=== PATIENT | female | born 1940 | race Caucasian/White ===

== ENCOUNTER 2018-07-03 12:45 | Emergency (ER) | payer MEDICARE, SELFPAY ==
[2018-07-03 12:52] VITALS: BP 133/58; PULSE 61; RESP 17; TEMP 36.5; O2SAT 97
--- NOTE | 2018-07-03 13:40 | W.ED.GENAD ---
Discharge Plan Disposition Patient Disposition: HOME Condition: Improving Discharge Details Chief Complaint: Abd Prob Clinical Impression: Constipation Primary Care Provider: Karli Aguayo ED Provider: Romero Conrad Home Meds and New Rx's Prescriptions: New mineral oil [Fleet Mineral Oil] enema 118 ml [place] ONCE Qty: 135 RF: 0 Continue benazepril 5 MG tablet 20 mg PO HS RF: 0 diltiazem HCl 180 MG capsule,extended release 24hr 180 mg PO HS RF: 0 nitroglycerin [Nitrostat] 0.4 MG tablet, sublingual 0.4 mg Sublingual Q5 MIN PRN X3 PRNQty: 100 RF: 0 Discharge Instructions Instructions: Constipation (ED) Additional Instructions: Please use fleets enema tonight. Continue Senokot daily. Please contact your primary care physician to arrange follow-up. You should follow-up with general surgery to have a colonoscopy. Call today to schedule. Return to the ER for any worsening or new concerning symptoms. Referrals: Asia Brody [ NON-[facility] STAFF PHYSICIAN] - Medical Decision Making 13:45 -- 78-year-old female with history of hypertension here with constipation over the past 3-4 days. Abdominal exam is relatively benign with some lower abdominal tenderness and peritoneal findings. Patient has not had a colonoscopy but has not had any abdominal pain, blood in her stool, unintentional weight loss or night sweats or any other concerning symptoms for malignancy. Patient has had some dietary changes recently. Consider electrolyte abnormalities. Patient seems somewhat dehydrated with dry mucous membranes. I will given IV fluid bolus. 15:00 -- Labs reviewed and nondiagnostic. Patient has received 600mL crystaloid bolus. Patient more uncomfortable and had attempted to have bowel movement unsuccessfully. Requesting disimpaction. Patient provides verbal consent to disimpaction after discussion of risk/benefits. 15:10 -- Disimpaction performed by la - large amount of stool removed and no complications. 16:00 -- Pt reassessed and having bowel movements. Feels much better. Patient advised to use stool softener follow-up with her primary care. HPI General Date/Time Provider Initiated Documentation: 07/03/18 12:58. Limitations to Documentation: no limitations. Information obtained by: patient. HPI Narrative: 78-year-old female with history of hypertension presents with chief complaint of constipation. Patient notes constipation over the past 4 days. Symptoms are severe. Patient notes she tried Senokot and milk of magnesia today as well as attempted an enema yesterday. Patient notes that she has some lower abdominal discomfort described as fullness as a result of the constipation. No new medications. Patient has had recent dietary changes has been eating a lot more vegetables recently. Patient is also experiencing a lot of stress recently with the loss of her and more recently missing dog. Patient has not had a colonoscopy. She denies any history of abdominal pain or rectal bleeding. Related Data Home Medications Medication Instructions Recorded Confirmed benazepril 20 mg PO HS 07/04/13 07/03/18 diltiazem HCl 180 mg PO HS 07/04/13 07/03/18 Previous Rx's Medication Instructions Recorded nitroglycerin [Nitrostat] 0.4 mg SUBLINGUAL Q5 MIN PRN X3 10/22/17 PRN #100 tab mineral oil [Fleet Mineral Oil 118 ml MS ONCE #135 ml 07/03/18 enema] Allergies Allergy/AdvReac Type Severity Reaction Status Date / Time propoxyphene HCl Allergy Severe see comment Unverified 10/17/17 13:21 [From Darvon Compound-65] latex Allergy Mild rash Unverified 10/17/17 13:21 antibiotic ointments AdvReac Mild rash Uncoded 10/17/17 13:21 General Stated Complaint: Abd Prob DAVID: 3 Review of Systems Review of Systems All systems reviewed & are unremarkable except as noted in HPI and below Cardiovascular Reports system reviewed and no additional complaints, except as docu Respiratory Reports system reviewed and no additional complaints, except as docu Gastrointestinal Reports abdominal pain, Denies melena, Denies hematochezia, Reports constipation, Denies diarrhea, Reports nausea and Denies vomiting PFSH Family History Mother Alzheimer's disease Father No problems noted. Medical History BASAL CELL CARCINOMA Essential hypertension Sleep apnea Squamous cell carcinoma Social History Smoking/Tobacco Use Status: Never Surgical History Cholecystectomy HERNIA REPAIR Exam Const General: cooperative and no acute distress HENMT Head: normocephalic and atraumatic Mouth: moist mucous membranes Eyes Conjunctivae: normal conjunctivae Sclera: normal sclerae EOM: EOM intact bilaterally Neck Neck: trachea midline and supple Resp Auscultation: clear to auscultation bilaterally, no rales, no rhonchi and no wheezes Cardio Jugular venous pressure: no JVD Rate: regular rate and not tachycardic Rhythm: regular rhythm Heart Sounds: murmur systolic II/ GI Palpation: soft, not firm, no guarding, no masses, not rigid and tender (discomfort in lower abd) Skin General skin exam: no rashes or lesions noted Neuro General: alert, awake, oriented x3 and tone normal Extrem General: no edema Psych Appearance: grossly normal Mental Status: mental status grossly normal Speech and Movement: speech and movement normal Course Vital Signs Temperature 36.5 C 07/03/18 12:52 Pulse 61 07/03/18 12:52 Respiratory Rate 17 07/03/18 12:52 Blood Pressure 133/58 L 07/03/18 12:52 Pulse Oximetry 97 07/03/18 12:52 Temperature 36.5 C 07/03/18 12:52 Pulse 61 07/03/18 12:52 Respiratory Rate 17 07/03/18 12:52 Blood Pressure 133/58 L 07/03/18 12:52 Pulse Oximetry 97 07/03/18 12:52 Procedures Rectal Disimpaction Time Out Performed: Yes Indication: fecal impaction Procedural Sedation: No Technique: manual disimpaction with gloved finger Result: significant stool output Patient Tolerated Procedure: well Complications: none
[2018-07-03] MEDS: Lactated Ringers 500 ML IV (13:45)
--- NOTE | 2018-07-03 13:49 | ED.GENADUL_ITS ---
Discharge Plan Disposition Patient Disposition: HOME Condition: Improving Discharge Details Chief Complaint: Abd Prob Clinical Impression: Constipation Primary Care Provider: Karli Aguayo ED Provider: Romero Conrad Home Meds and New Rx's Prescriptions: New mineral oil [Fleet Mineral Oil] enema 118 ml [place] ONCE Qty: 135 RF: 0 Continue benazepril 5 MG tablet 20 mg PO HS RF: 0 diltiazem HCl 180 MG capsule,extended release 24hr 180 mg PO HS RF: 0 nitroglycerin [Nitrostat] 0.4 MG tablet, sublingual 0.4 mg Sublingual Q5 MIN PRN X3 PRNQty: 100 RF: 0 Discharge Instructions Instructions: Constipation (ED) Additional Instructions: Please use fleets enema tonight. Continue Senokot daily. Please contact your primary care physician to arrange follow-up. You should follow-up with general surgery to have a colonoscopy. Call today to schedule. Return to the ER for any worsening or new concerning symptoms. Referrals: Asia Brody [ NON-[facility] STAFF PHYSICIAN] - Medical Decision Making 13:45 -- 78-year-old female with history of hypertension here with constipation over the past 3-4 days. Abdominal exam is relatively benign with some lower abdominal tenderness and peritoneal findings. Patient has not had a colonoscopy but has not had any abdominal pain, blood in her stool, unintentional weight loss or night sweats or any other concerning symptoms for malignancy. Patient has had some dietary changes recently. Consider electrolyte abnormalities. Patient seems somewhat dehydrated with dry mucous membranes. I will given IV fluid bolus. 15:00 -- Labs reviewed and nondiagnostic. Patient has received 600mL crystaloid bolus. Patient more uncomfortable and had attempted to have bowel movement unsuccessfully. Requesting disimpaction. Patient provides verbal consent to disimpaction after discussion of risk/ benefits. 15:10 -- Disimpaction performed by ar - large amount of stool removed and no complications. 16:00 -- Pt reassessed and having bowel movements. Feels much better. Patient advised to use stool softener follow-up with her primary care. HPI General Date/Time Provider Initiated Documentation: 07/03/18 12:58 . Limitations to Documentation: no limitations . Information obtained by: patient . HPI Narrative: 78-year-old female with history of hypertension presents with chief complaint of constipation. Patient notes constipation over the past 4 days. Symptoms are severe. Patient notes she tried Senokot and milk of magnesia today as well as attempted an enema yesterday. Patient notes that she has some lower abdominal discomfort described as fullness as a result of the constipation. No new medications. Patient has had recent dietary changes has been eating a lot more vegetables recently. Patient is also experiencing a lot of stress recently with the loss of her and more recently missing dog. Patient has not had a colonoscopy. She denies any history of abdominal pain or rectal bleeding. Related Data Home Medications Medication Instructions Recorded Confirmed benazepril 20 mg PO HS 07/04/13 07/03/18 diltiazem HCl 180 mg PO HS 07/04/13 07/03/18 Previous Rx's Medication Instructions Recorded nitroglycerin [Nitrostat] 0.4 mg SUBLINGUAL Q5 MIN PRN X3 10/22/17 PRN #100 tab mineral oil [Fleet Mineral Oil 118 ml [place] ONCE #135 ml 07/03/18 enema] Allergies Allergy/AdvReac Type Severity Reaction Status Date / Time propoxyphene HCl Allergy Severe see comment Unverified 10/17/17 13:21 [From Darvon Compound-65] latex Allergy Mild rash Unverified 10/17/17 13:21 antibiotic ointments AdvReac Mild rash Uncoded 10/17/17 13:21 General Stated Complaint: Abd Prob DAVID: 3 Review of Systems Review of Systems All systems reviewed & are unremarkable except as noted in HPI and below Cardiovascular Reports system reviewed and no additional complaints, except as docu Respiratory Reports system reviewed and no additional complaints, except as docu Gastrointestinal Reports abdominal pain, Denies melena, Denies hematochezia, Reports constipation , Denies diarrhea, Reports nausea and Denies vomiting PFSH Family History Mother Alzheimer's disease Father No problems noted. Medical History BASAL CELL CARCINOMA Essential hypertension Sleep apnea Squamous cell carcinoma Social History Smoking/Tobacco Use Status: Never Surgical History Cholecystectomy HERNIA REPAIR Exam Const General: cooperative and no acute distress HENMT Head: normocephalic and atraumatic Mouth: moist mucous membranes Eyes Conjunctivae: normal conjunctivae Sclera: normal sclerae EOM: EOM intact bilaterally Neck Neck: trachea midline and supple Resp Auscultation: clear to auscultation bilaterally, no rales, no rhonchi and no wheezes Cardio Jugular venous pressure: no JVD Rate: regular rate and not tachycardic Rhythm: regular rhythm Heart Sounds: murmur systolic II/ GI Palpation: soft, not firm, no guarding, no masses, not rigid and tender ( discomfort in lower abd) Skin General skin exam: no rashes or lesions noted Neuro General: alert, awake, oriented x3 and tone normal Extrem General: no edema Psych Appearance: grossly normal Mental Status: mental status grossly normal Speech and Movement: speech and movement normal Course Vital Signs Temperature 36.5 C 07/03/18 12:52 Pulse 61 07/03/18 12:52 Respiratory Rate 17 07/03/18 12:52 Blood Pressure 133/58 L 07/03/18 12:52 Pulse Oximetry 97 07/03/18 12:52 Temperature 36.5 C 07/03/18 12:52 Pulse 61 07/03/18 12:52 Respiratory Rate 17 07/03/18 12:52 Blood Pressure 133/58 L 07/03/18 12:52 Pulse Oximetry 97 07/03/18 12:52 Procedures Rectal Disimpaction Time Out Performed: Yes Indication: fecal impaction Procedural Sedation: No Technique: manual disimpaction with gloved finger Result: significant stool output Patient Tolerated Procedure: well Complications: none
[2018-07-03 14:02] LABS: Abs Immature Grans 0.01 k/cumm (0.0-0.09); Absolute Basophil Count 0.06 k/cumm (0.0-0.2); Absolute Eosinophil Count 0.12 k/cumm (0.0-0.7); Absolute Lymphocyte Count 1.31 k/cumm (1.2-3.4); Absolute Monocyte Count 0.46 k/cumm (0.11-0.7); Absolute Neutrophil Count 6.06 k/cumm (1.2-6.7); Basophils % 0.7; Eosinophils % 1.5; HCT 45.9 % (36.0-46.0); Immature Grans % 0.1; Lymphocytes % 16.3; Mean Corp. HGB Concentration 32.7 g/dL (32.0-36.0); Mean Corpuscular Hemoglobin 27.7 pg (27.0-33.0); Mean Corpuscular Volume 84.7 fL (80-95); Mean Platelet Volume 12.5 fL (8.0-11.0); Monocytes % 5.7; Neutrophils % 75.7; Platelet Count 169 x1000/uL (130-400); RBC 5.42 m/cumm (4.00-5.20); RBC Distribution Width 13.6 % (11.7-14.6); White Blood Cell Count 8.02 k/cumm (4.4-10.8)
[2018-07-03 14:22] LABS: ALT 37 U/L (12-78); AST 35 U/L (15-37); Albumin 3.7 g/dL (3.4-5.0); Alkaline Phosphatase 96 U/L (46-116); Anion Gap 8.5 mmol/L (3-11); BUN 23 mg/dL (7-18); Bilirubin, Total 0.5 mg/dL (0.2-1.0); CO2 29.5 mmol/L (21.0-32.0); CREATININE 0.72 mg/dL (0.55-1.02); Calcium 8.9 mg/dL (8.5-10.1); Chloride 106 mmol/L (98-107); Glucose 96 mg/dL (70-100); Potassium 3.9 mmol/L (3.5-5.1); Sodium 144 mmol/L (136-145); Total Protein 6.9 g/dL (6.4-8.2)
[2018-07-03 15:54] VITALS: BP 128/66; PULSE 62; RESP 17; TEMP 36.4; O2SAT 97
== END 2018-07-03 16:24 | disposition home or self-care (01) ==
PROVIDERS: Emergency Provider Student in an Organized Health Care Education/Training Program
DX: K59.00 Constipation, unspecified (principal); R10.30 Lower abdominal pain, unspecified; I10 Essential (primary) hypertension
CPT/HCPCS: 36415; 80053; 96360; 99284; 85025

== ENCOUNTER 2018-08-13 00:31 | Outpatient (CLI) | payer MEDICARE, SELFPAY ==
--- NOTE | 2018-08-13 13:30 | DI.DEXA_ITS ---
SYMPTOM/DIAGNOSIS: ASYMPTOMATIC POSTMENOPAUSAL, SCREENING FOR OSTEOPOROSIS, [facility], Z00.0,Z78.0 DEXA SCAN: The scanogram reveals no evidence of a compression fracture. For the right forearm, a T score of -1.4 and a Z score of 1.2 indicate osteopenia and an increased fracture risk. For the left hip, a T score of -0.7 and a Z score of 1.1 are consistent with osteopenia and an increased fracture risk. For the lumbar spine, a T score of 1.2 and a Z score of 3.7 are within the normal range.
== END 2018-08-13 00:51 ==
PROVIDERS: PCP Nurse Practitioner Family; Visit Provider Nurse Practitioner Family
DX: M85.88 Other specified disorders of bone density and structure, other site (principal); Z78.0 Asymptomatic menopausal state
CPT/HCPCS: 77080

== ENCOUNTER 2019-07-14 13:43 | Emergency (ER) | payer MEDICARE, SELFPAY ==
[2019-07-14] VITALS (23 sets, daily range): BP systolic 115–163; BP diastolic 47–81; PULSE 60–74; RESP 12; TEMP 37.3–38.9; O2SAT 93–98
--- NOTE | 2019-07-14 14:16 | ED.GENADUL_ITS ---
Discharge Plan Disposition Patient Disposition: HOME Condition: Improving Discharge Details Chief Complaint: Fever Clinical Impression: Lyme disease Primary Care Provider: Marbella Serrato ED Provider: Marbella Guillermo Home Meds and New Rx's Prescriptions: New doxycycline hyclate 100 mg tablet 100 mg PO BID Qty: 42 RF: 0 ondansetron HCl [Zofran] 4 mg tablet 4 mg PO Q8H Qty: 5 RF: 0 No Action benazepril 5 MG tablet 20 mg PO HS RF: 0 diltiazem HCl 180 MG capsule,extended release 24hr 180 mg PO HS RF: 0 nitroglycerin [Nitrostat] 0.4 MG tablet, sublingual 0.4 mg Sublingual Q5 MIN PRN X3 PRNQty: 100 RF: 0 mineral oil [Fleet Mineral Oil] enema 118 ml [place] ONCE Qty: 135 RF: 0 Discharge Instructions Instructions: Lyme Disease (ED), Tick Bite (ED) Additional Instructions: Please drink approximately 8 glasses of water per day. Use antibiotic as prescribed. Nausea medication if needed as prescribed. Use Tylenol for fever control and soreness if needed in the next 3 to 5 days. Have prompt follow-up with your primary care doctor for reevaluation. Lyme testing pending. Return for any persistent weakness, increase in fever, new or change in your s ymptoms or alarming symptoms if needed sooner as discussed Discharge Data Discharge Date/Time-TO BE ENTERED AT DEPARTURE: 07/14/19 17:46 Medical Decision Making Very pleasant 79-year-old patient presents accompanied by her daughter who went to her house today to help assist her which is very atypical as the patient is quite independent and typically only requests help when feeling ill. Patient has reported 3 days of fever associated with mild nausea, fatigue. Denies obvious headache or dizziness. Denies chest pain. Have no focal complaints of soreness. Patient denies difficulty breathing or shortness of breath or wheezing. Denies new cough. Denies abdominal pain, distention or bowel changes. Denies urinary urgency, frequency or dysuria. Patient has no clear source of her fever. Patient does report the temperature has been as high as 101 and 102. Patient does admit to 2 recent tick bites the most recent one week ago. Patient is also admitting to a rash behind her right knee and on her left elbow, left elbow rash has improved mildly. No associated pain or itching at the site of rash. Patient's initial ECG reviewed with Dr. Leggett. Heart rate of 73, with a left bundle branch block without evidence of scarbossa's criteria. No significant change compared to previous EKG from October 21, 2017. Influenza testing, chest x-ray and urinalysis are all unremarkable for obvious indicators of infection. Patient's vital signs are stable. Patient has no evidence of leukocytosis or shift. Patient's electrolytes are within normal limits. Patient has very minimal elevation of her LFTs. Given patient's fever, nausea, fatigue in conjunction to rash which is consistent with an EM rash and recent history of tick by a do feel is most appropriate to treat this patient with doxycycline. Patient was offered admission however would prefer trial of treatment at home. The patient was stable and requested discharge. Prior to discharge, my usual and customary return precautions were reviewed with the patient - this included follow-up instructions and reasons to return to the Emergency Department if conditions worsens, does not improve as expected, or other new concerns arise. HPI General Date/Time Provider Initiated Documentation: 07/14/19 13:53 . HPI Narrative: Is a 79-year-old patient who presents to the emergency room from home accompanied by her daughter whom is her neighbor. Patient complaining of fever and malaise with associated nausea. Onset of illness 2 days ago. Patient denies upper respiratory symptoms, nasal congestion with sore throat or coughing. Patient denies active chest pain or back pain. No associated difficulty being or shortness of breath or wheezing. Patient denies abdominal pain or distention. Patient denies urinary urgency, frequency or dysuria. Decreased urine output as she said decreased p.o. food and fluid intake in the last 2 days since onset of illness. Reports rash behind right knee and on left elbow.. Related Data Home Medications Medication Instructions Recorded Confirmed benazepril 20 mg PO HS 07/04/13 07/03/18 diltiazem HCl 180 mg PO HS 07/04/13 07/03/18 nitroglycerin [Nitrostat] 0.4 mg SUBLINGUAL Q5 MIN PRN X3 10/22/17 07/03/18 PRN #100 tab mineral oil [Fleet Mineral Oil 118 ml [place] ONCE #135 ml 07/03/18 enema] doxycycline hyclate 100 mg PO BID #42 tab 07/14/19 ondansetron HCl [Zofran] 4 mg PO Q8H #5 tab 07/14/19 Previous Rx's Medication Instructions Recorded nitroglycerin [Nitrostat] 0.4 mg SUBLINGUAL Q5 MIN PRN X3 10/22/17 PRN #100 tab mineral oil [Fleet Mineral Oil 118 ml [place] ONCE #135 ml 07/03/18 enema] doxycycline hyclate 100 mg PO BID #42 tab 07/14/19 ondansetron HCl [Zofran] 4 mg PO Q8H #5 tab 07/14/19 Allergies Allergy/AdvReac Type Severity Reaction Status Date / Time propoxyphene HCl Allergy Severe see comment Unverified 10/17/17 13:21 [From Darvon Compound-65] latex Allergy Mild rash Unverified 10/17/17 13:21 antibiotic ointments AdvReac Mild rash Uncoded 10/17/17 13:21 General Stated Complaint: Fever DAVID: 3 Review of Systems Review of Systems ROS Unobtainable: All systems reviewed & are unremarkable except as noted in HPI and below Constitutional Constitutional: Reports chills, Reports fever(s), Denies headache(s), Reports malaise and Reports poor appetite Eyes Eyes: Denies eye discharge ENT Ears, Nose, Mouth, and Throat: Denies dental pain, Denies ear discharge, Denies headache(s), Denies post nasal drip and Denies sinus pain Cardiovascular Cardiovascular: Denies chest pain, Denies syncope, Denies lightheadedness, Denies palpitations and Denies dyspnea on exertion Respiratory Respiratory: Denies cough and Denies dyspnea on exertion Gastrointestinal Gastrointestinal: Denies abdominal pain, Denies constipation, Denies cramping, Denies diarrhea, Reports nausea and Reports vomiting Genitourinary Genitourinary: Denies hematuria, Denies urinary frequency, Denies urinary incontinence and Denies urinary urgency Neurologic Neurologic: Denies syncope and Denies headache(s) Endocrine Endocrine: Denies palpitations [facility] Medical History BASAL CELL CARCINOMA Essential hypertension Sleep apnea Squamous cell carcinoma Social History Smoking/Tobacco Use Status: Never Alcohol Intake: current Alcohol Intake frequency: holidays/special occasions only Drug use: Never Do you feel safe in your relationship?: Yes Exam Narrative Exam Narrative: CONST: Fatigued appearing, febrile appearing, dry. Alert and alert. HENMT: Head nomocephalic, normal to inspection. Atraumatic. Hearing grossly normal. No TM injection. No pharyngeal erythema. EYES: General normal appearance. Alignment normal. Eyelids normal. Conjunctiva normal. NECK: Normal visual inspection. FROM. Trachea midline. No Midline tenderness. CHEST: Normal insepection of the chest. RESP: Normal respiratory effort. Speaking full sentences. No cough. No audible wheezing. No retractions. CARDIO: No JVD. No rubs. Regular rate Abdomen; soft, bowel sounds present in all 4 quadrants. No tenderness. No rebound, peritoneal signs or guarding. MUSCULOSKELETAL: Normal Gait. FROM of all extremities. SKIN: Normal. Dry. Patient with a oval, target type erythematous rash posterior to the right knee consistent with a EM rash NEURO: Alert and awake. Speech clear. PSYCH: Normal affect. Cooperative. Course Vital Signs Vital signs: Vital Signs Temperature 37.5 C 07/14/19 13:57 Pulse 70 07/14/19 13:57 Respiratory Rate 12 07/14/19 13:57 Blood Pressure 149/65 H 07/14/19 13:57 Pulse Oximetry 98 07/14/19 13:57 Temperature 37.5 C 07/14/19 13:57 Temperature Source Oral 07/14/19 13:57 Pulse 70 07/14/19 13:57 Respiratory Rate 12 07/14/19 13:57 Blood Pressure 149/65 H 07/14/19 13:57 Blood Pressure Position Supine 07/14/19 13:57 Pulse Oximetry 98 07/14/19 13:57 Oxygen Delivery Method Room Air 07/14/19 13:57 Oxygen Flow Rate 0 07/14/19 13:57 Pain Level 0 07/14/19 13:57 Lab/Test Results Lab/Test Results: 07/14/19 14:11 Nasopharynx Influenza Types A,B Antigen - Pending
[2019-07-14] MEDS: Normal Saline 1,000 ML 1000 ML IV (14:18)
--- NOTE | 2019-07-14 14:18 | DI.RAD_ITS ---
EXAM: XR CHEST 2V PA LATERAL INDICATION: fever. COMPARISON: ABD FLAT UPRIGHT PA CHEST from 07/04/2013 TECHNIQUE: 2D digital imaging was performed. FINDINGS: The heart is within normal limits given the projection. No focal consolidating infiltrates, effusion s, or pneumothoraces are identified. Age-appropriate degenerative changes are seen in the spine. IMPRESSION: No acute pulmonary process.
[2019-07-14 14:54] LABS: Bilirubin Negative (Negative); Blood Small (Negative); Clarity Clear (Clear); Glucose Negative (Negative); Ketones 15 mg/dL (Negative); Leukocyte Esterase Negative (Negative); Nitrite Negative (Negative); Specific Gravity 1.025 (1.005-1.025); Urobilinogen 0.2 EU/dL (Up TO 0.2)
[2019-07-14] MEDS: Ondansetron 4 MG/2 ML VIAL (14:59)
[2019-07-14 15:04] LABS: Bacteria Many HPF (Negative); C & S Indicated? Yes; Casts Negative LPF (Negative); Crystals Negative HPF (Negative); Epithelial Cells Few HPF (Negative); Mucus Negative (Negative); RBC Negative (0-2)
[2019-07-14 15:10] LABS: Abs Immature Grans 0.02 k/cumm (0.0-0.09); Absolute Basophil Count 0.02 k/cumm (0.0-0.2); Absolute Eosinophil Count 0.02 k/cumm (0.0-0.7); Absolute Lymphocyte Count 0.41 k/cumm (1.2-3.4); Absolute Monocyte Count 0.35 k/cumm (0.11-0.7); Absolute Neutrophil Count 5.54 k/cumm (1.2-6.7); Basophils % 0.3; Eosinophils % 0.3; HCT 43.2 % (36.0-46.0); HGB 14.1 g/dL (12.0-15.5); Immature Grans % 0.3; Lymphocytes % 6.4; Mean Corp. HGB Concentration 32.6 g/dL (32.0-36.0); Mean Corpuscular Hemoglobin 27.5 pg (27.0-33.0); Mean Corpuscular Volume 84.2 fL (80-95); Mean Platelet Volume 12.9 fL (8.0-11.0); Monocytes % 5.5; Neutrophils % 87.2; Platelet Count 130 x1000/uL (130-400); RBC 5.13 m/cumm (4.00-5.20); RBC Distribution Width 13.7 % (11.7-14.6); White Blood Cell Count 6.36 k/cumm (4.4-10.8)
[2019-07-14 15:21] LABS: ALT 73 U/L (14-59); AST 55 U/L (15-37); Alkaline Phosphatase 151 U/L (46-116); Anion Gap 8.6 mmol/L (3-11); BUN 20 mg/dL (7-18); Bilirubin, Total 0.4 mg/dL (0.2-1.0); CO2 26.4 mmol/L (21.0-32.0); CREATININE 0.83 mg/dL (0.55-1.02); Calcium 7.8 mg/dL (8.5-10.1); Chloride 102 mmol/L (98-107); Glucose 124 mg/dL (70-100); Potassium 3.4 mmol/L (3.5-5.1); Sodium 137 mmol/L (136-145); Total Protein 6.4 g/dL (6.4-8.2)
[2019-07-14] MEDS: ACETAMINOPHEN 1,000 MG/100 ML BTL 400 MG IVPB (15:30)
[2019-07-14] MEDS: Doxycycline Hyclate 100 MG CAP PO (17:16)
[2019-07-16 11:44] LABS: Lyme Ab w Rflx to Lyme Confirm Negative
[2019-07-16 23:26] LABS: Anaplasma phagocytophilum Negative (Negative); B. miyamotoi PCR Negative (Negative); Babesia divergens/MO-1 Negative (Negative); Babesia duncani Negative (Negative); Babesia microti Negative (Negative); Ehrlichia chaffeensis Negative (Negative); Ehrlichia ewingii/canis Negative (Negative); Ehrlichia muris eauclairensis Negative (Negative)
== END 2019-07-14 17:46 | disposition home or self-care (01) ==
PROVIDERS: Emergency Provider Physician Assistant; PCP Nurse Practitioner Family
DX: A69.20 Lyme disease, unspecified (principal); R53.81 Other malaise; R05 Cough; I10 Essential (primary) hypertension
CPT/HCPCS: 36415; 80053; 87449; 87798; 93005; 96361; 96365; 99285; 71046; 81003; 81015; 85025; 86618; 87086; 93010; J0131; J2405

== ENCOUNTER 2019-08-02 10:50 | Outpatient (REF) | payer MEDICARE, SELFPAY ==
[2019-08-02 12:36] LABS: ALT 27 U/L (14-59); AST 30 U/L (15-37); Albumin 3.8 g/dL (3.4-5.0); Alkaline Phosphatase 115 U/L (46-116); Anion Gap 7.5 mmol/L (3-11); BUN 25 mg/dL (7-18); Bilirubin, Total 0.5 mg/dL (0.2-1.0); CO2 28.5 mmol/L (21.0-32.0); CREATININE 0.78 mg/dL (0.55-1.02); Calcium 9.1 mg/dL (8.5-10.1); Calculated LDL 115 mg/dL; Chloride 107 mmol/L (98-107); Cholesterol 215 mg/dL (50-200); Glucose 87 mg/dL (70-100); HDL Cholesterol 89 mg/dL (40-60); Potassium 4.8 mmol/L (3.5-5.1); Sodium 143 mmol/L (136-145); Total Protein 6.8 g/dL (6.4-8.2); Triglyceride 56 mg/dL (30-150)
== END 2019-08-02 11:10 ==
LOC: NCHCN 10:50
PROVIDERS: PCP Nurse Practitioner Family; Visit Provider Nurse Practitioner Family
DX: I10 Essential (primary) hypertension (principal); R79.89 Other specified abnormal findings of blood chemistry; A69.20 Lyme disease, unspecified; M85.80 Other specified disorders of bone density and structure, unspecified site; C44.91 Basal cell carcinoma of skin, unspecified; I51.7 Cardiomegaly; R42 Dizziness and giddiness
CPT/HCPCS: 80053; 80061

== ENCOUNTER 2020-04-04 12:34 | Outpatient (REF) | payer MEDICARE, SELFPAY ==
[2020-04-04 20:17] LABS: Anion Gap 8.4 mmol/L (3-11); BUN 21 mg/dL (7-18); CO2 27.6 mmol/L (21.0-32.0); CREATININE 0.83 mg/dL (0.55-1.02); Calcium 8.8 mg/dL (8.5-10.1); Chloride 106 mmol/L (98-107); Glucose 109 mg/dL (74-106); Potassium 4.2 mmol/L (3.5-5.1); Sodium 142 mmol/L (136-145)
[2020-04-04 20:28] LABS: Absolute Basophil Count 0.05 k/cumm (0.0-0.2); Absolute Lymphocyte Count 2.04 k/cumm (1.2-3.4); Basophils % 0.8; Eosinophils % 6.6; HCT 44.4 % (36.0-46.0); HGB 14.3 g/dL (12.0-15.5); Lymphocytes % 33.5; Mean Corp. HGB Concentration 32.2 g/dL (32.0-36.0); Mean Corpuscular Hemoglobin 27.6 pg (27.0-33.0); Mean Corpuscular Volume 85.5 fL (80-95); Monocytes % 8.2; Neutrophils % 50.9; RBC 5.19 m/cumm (4.00-5.20); RBC Distribution Width 13.3 % (11.7-14.6); White Blood Cell Count 6.09 k/cumm (4.4-10.8)
[2020-04-04 20:56] LABS: Platelet Count 175 x1000/uL (130-400)
== END 2020-04-04 12:54 ==
LOC: NCHCN 12:34
PROVIDERS: PCP Nurse Practitioner Family; Visit Provider Nurse Practitioner Family
DX: R19.7 Diarrhea, unspecified (principal)
CPT/HCPCS: 80048; 85025

== ENCOUNTER 2020-04-05 10:35 | Outpatient (REF) | payer MEDICARE, SELFPAY ==
[2020-04-06 23:58] LABS: Campylobacter PCR Negative (Negative); Salmonella PCR Negative (Negative); Shiga Toxin PCR Negative (Negative); Shigella/Enteroinvasive Ecoli Negative (Negative)
== END 2020-04-05 10:55 ==
LOC: NCHCN 10:35
PROVIDERS: PCP Nurse Practitioner Family; Visit Provider Nurse Practitioner Family
DX: R19.7 Diarrhea, unspecified (principal)
CPT/HCPCS: 87505; 87177

== ENCOUNTER 2020-04-25 01:45 | Outpatient (CLI) | payer MEDICARE, SELFPAY ==
--- NOTE | 2020-04-25 11:20 | DI.RAD_ITS ---
EXAM: XR ABDOMEN FLAT PLATE CLINICAL HISTORY: BOWEL HABITS IRREGULAR, R19.8, DIARRHEA, R19.7 TECHNIQUE: COMPARISON: CR ABD FLAT UPRIGHT PA CHEST from 07/04/2013 FINDINGS: Views were obtained. There are vascular clips in the right upper quadrant consistent with prior chol ecystectomy. Bowel gas pattern is within normal limits. No gross organomegaly. IMPRESSION: Negative examination of the abdomen.
== END 2020-04-25 02:05 ==
PROVIDERS: PCP Nurse Practitioner Family; Visit Provider Nurse Practitioner Family
DX: R19.7 Diarrhea, unspecified (principal); R19.4 Change in bowel habit
CPT/HCPCS: 74018

== ENCOUNTER → 2020-04-28 11:00 | Outpatient (BNVA) | payer MEDICARE, SELFPAY | PROVIDERS: PCP Nurse Practitioner Family; Referring Provider Nurse Practitioner Family; Visit Provider Surgery | DX: R19.4 Change in bowel habit (principal); R63.4 Abnormal weight loss; I10 Essential (primary) hypertension; Z92.89 Personal history of other medical treatment | CPT/HCPCS: 99202; 99214 ==

== ENCOUNTER 2020-05-11 07:05 | Day surgery (SDC) | payer MEDICARE, SELFPAY ==
[2020-05-11 07:15] VITALS: BP 148/90; PULSE 58; RESP 18; TEMP 36.6; O2SAT 98
[2020-05-11] MEDS: Lactated Ringers 1,000 ML 100 ML IV (07:48)
--- NOTE | 2020-05-11 09:02 | W.COLOREPORT ---
Date of service: 05/11/20 Time of Service: 09:03 Colonoscopy Report Date of procedure: 05/11/20 Pre-op diagnosis general: wt loss and change in bowel habits Post-op diagnosis procedure note: other (normal ) Procedure: colo Surgeon: Cindy Mace Anesthesia proc note operative: MAC Estimated blood loss (mL): 0 Pathology: none sent Complications: None Disposition: same day Prep: Miralax/Dulcolax Retraction Time: 10 mins Procedure Description: After informed consent was obtained the patient was taken to the procedure room and placed in a left decubitous position. Monitors were applied and a time out was done. The patients name, date of , procedure, allergies to medications and metal in their body was reviewed. The patient was then sedated. Once sedated and comfortable a rectal exam was done. External exam was normal. Internal exam revealed a normal sphincter tone and no palpable masses. The scope was then introduced and retrofelexed. No internal hemorrhoids were identified. The scope was then advanced to the cecum w/out difficulty. The TI and appendiceal orifice were identified. The prep was good. The scope was then slowly retracted over 10 minutes back into the rectum. There are no polyps, AVMs, or diverticuli apparent a normal exam. The Mucosa is pink and healthy. Polyps were removed-none. The scope was removed and the patient was woken up and taken back to Same day surgery in stable condition. The patient tolerated the procedure well and there were no immediate complications. Follow up: The patient does not need to repeat colonoscopy, unless they develop changes in bowel habits or other new gastrointestinal complaints.
--- NOTE | 2020-05-11 09:06 | PDOC.DSDIS_ITS ---
Discharge Plan Disposition Patient Disposition: HOME Condition: Good Discharge Details Attending Provider: Cindy Mace Primary Care Provider: Marbella Serrato Home Meds and New Rx's Prescriptions: Continued Lactobacillus acidophilus Capsule 100 mg PO DAILY RF: 0 benazepril 5 MG tablet 20 mg PO HS RF: 0 diltiazem HCl 180 MG capsule,extended release 24hr 180 mg PO HS RF: 0 nitroglycerin [Nitrostat] 0.4 MG tablet, sublingual 0.4 mg Sublingual Q5 MIN PRN X3 PRNQty: 100 RF: 0 ibuprofen 200 mg Tablet 200 mg PO Q6H PRNRF: 0 Discontinued polyethylene glycol 3350 17 gram/dose powder 238 g PO ONCE Qty: 238 RF: 0 bisacodyl [Dulcolax (bisacodyl)] 5 mg tablet,delayed release (DR/EC) 5 mg PO ONCE Qty: 4 RF: 0 Discharge Instructions Additional Instructions: Findings:normal Follow up: w/ PCP as needed Does not need to repeat colonoscopy Please call if you develop: fevers >101.5 Nausea or Vomiting Abdominal pain that is not transient DAY SURGERY UNIT POST COLONOSCOPY INSTRUCTIONS 1. Because there will be medication in your system for the next 24 hours, you may feel a little sleepy. Your coordination will be affected. Therefore: a. Do not drive or operate dangerous equipment for 24 hours. b. Do not drink alcohol beverages for 24 hours (not even beer). c. Plan to go home and rest for the day. 2. Generally there are no restrictions on your activity after a day or so has gone by, but you may feel a bit fatigued for a few days. 3 After you arrive home you may have a light meal and return to a normal diet as you can tolerate it without feeling sick to your stomach. 4. After surgery, you may feel pain or discomfort. This should be only transie nt, but if it persists please contact your doctor. 5. If there are any questions regarding the findings of your procedure, please feel free to contact your doctor. 6. If you are unable to contact your doctor with a problem, contact the hospital at [phone]. 7. Continue all your regular medications unless directed otherwise. I understand the above instructions and have no questions. Signature of Patient or Responsible Adult Escort Date/Time Name of Responsible Adult Escort Signature of Nurse Date/Time Activity:: No lifting over 20 pounds or strenuous activity x24 hours Diet:: Small light meals x24 hours Discharge Orders Discharge Orders: Discharge Order (Routine); Ordered 05/11/20 Ordered By: Cindy Mace DS: Diagnosis Discharge Diagnosis (1) Abnormal weight loss: Status: Acute (2) History of adverse reaction to anesthesia: Status: Acute
[2020-05-11 09:48] VITALS: BP 144/74; PULSE 48; RESP 16; TEMP 36.4; O2SAT 100
== END 2020-05-11 10:20 | disposition home or self-care (01) ==
PROVIDERS: PCP Nurse Practitioner Family; Visit Provider Surgery
PROC: 0DJD8ZZ Inspection of Lower Intestinal Tract, Via Natural or Artificial Opening Endoscopic (ICD-10-PCS; CPT 45378; principal; 2020-05-11 08:15)
DX: Z12.11 Encounter for screening for malignant neoplasm of colon (principal); R63.4 Abnormal weight loss; R19.4 Change in bowel habit; I10 Essential (primary) hypertension
CPT/HCPCS: G0121

== ENCOUNTER 2020-07-01 23:16 | Inpatient (IN) | payer MEDICARE, SELFPAY ==
--- NOTE | 2020-07-01 23:12 | ED.GENADUL_ITS ---
Discharge Plan Disposition Patient Disposition: [facility] INPATIENT Condition: Stable Discharge Details Clinical Impression: Incarcerated left inguinal hernia Primary Care Provider: Marbella Serrato ED Provider: Salomon Tristan Berclair Meds and New Rx's Prescriptions: No Action Lactobacillus acidophilus Capsule 100 mg PO DAILY RF: 0 benazepril 5 MG tablet 20 mg PO HS RF: 0 diltiazem HCl 180 MG capsule,extended release 24hr 180 mg PO HS RF: 0 nitroglycerin [Nitrostat] 0.4 MG tablet, sublingual 0.4 mg Sublingual Q5 MIN PRN X3 PRNQty: 100 RF: 0 ibuprofen 200 mg Tablet 200 mg PO Q6H PRNRF: 0 Medical Decision Making Patient with left inguinal hernia which is very hard and tender to palpation. Not reducible initially because of pain. Will place IV and get laboratory studies. Will start fluids and give fentanyl and attempt reduction at that point. 00:10 - Patient given a total of 100 mcg of fentanyl. Even with pain control unable to reduce hernia. Schaffer placed to decompress her bladder. Attempted re duction after Schaffer placed and still unable to reduce. White count is normal. Lactic acid is normal. Case discussed with surgery, Dr. Mace. No CT scan required. Surgery to take 2-hour tonight. 04:10 - Surgery and anesthesia here to see patient and take to OR. Medical Records Medical records reviewed: Yes I reviewed the patient's medical records. Lab Data Lab results reviewed: Yes I reviewed the patient's lab results. ECG Data Attestation: I personally reviewed and interpreted this ECG (s) as follows: Interpretation: see EKG HPI General Mode of arrival: EMS . Date/Time Provider Initiated Documentation: 07/01/20 23:27 . Limitations to Documentation: no limitations . Information obtained by: patient, RN notes reviewed and old records reviewed . HPI Narrative: Patient presents to ED with left groin pain. Patient has a left inguinal hernia which is been repaired in the distant past. Typically does not give her problems and usually when it pops out she is able to push it back in. Was fine all day until this evening. Hernia became symptomatic tonight and she has been unable to reduce it. It is become painful and is associated with nausea and vomiting. She is also been unable to urinate. She denies fever, cough, shortness of breath, chest pain, back pain. Related Data Home Medications Medication Instructions Recorded Confirmed benazepril 20 mg PO HS 07/04/13 07/01/20 diltiazem HCl 180 mg PO HS 07/04/13 07/01/20 nitroglycerin [Nitrostat] 0.4 mg SUBLINGUAL Q5 MIN PRN X3 10/22/17 07/01/20 PRN #100 tab Lactobacillus acidophilus 100 mg PO DAILY 04/27/20 07/01/20 ibuprofen 200 mg PO Q6H PRN 05/09/20 07/01/20 Previous Rx's Medication Instructions Recorded nitroglycerin [Nitrostat] 0.4 mg SUBLINGUAL Q5 MIN PRN X3 10/22/17 PRN #100 tab Allergies Allergy/AdvReac Type Severity Reaction Status Date / Time propoxyphene HCl Allergy Severe see comment Unverified 07/01/20 23:25 [From Darvon Compound-65] latex Allergy Mild rash Unverified 07/01/20 23:25 antibiotic ointments AdvReac Mild rash Uncoded 07/01/20 23:25 General DAVID: 3 Review of Systems Narrative: 07/26 Review of Systems completed and is negative except as stated above in HPI (Systems reviewed: Const, Eyes, ENT, Resp, CV, GI, , MSK, Skin, Neuro) PFSH Medical History Basal cell carcinoma Essential hypertension Heart murmur History of adverse reaction to anesthesia Inguinal hernia, left Lyme disease Osteopenia Sleep apnea T wave inversion in EKG Surgical History Cholecystectomy HERNIA REPAIR Family History Mother Alzheimer's disease Father No problems noted. Social History Smoking/Tobacco Use Status: Never Alcohol Intake: current Alcohol Intake frequency: holidays/special occasions only Drug use: Never Do you feel safe at home: Yes Exam Narrative Exam Narrative: Vitals: Afebrile. Hypertensive. Normal O2 saturation on room air. Const: WDWN elderly female in NAD. HEENT: NC/AT. Normal facial exam. Eyes: Normal conjunctiva and sclera. Neck: Supple. Trachea midline. Lungs: Normal respiratory effort. Lungs are clear. Cor: RRR with murmur. Good radial pulses. GI: Soft and ND. Left inguinal hernia which is hard and tender to palpation, otherwise abdomen is nontender throughout. Neuro: A+O x 3. Normal speech, mentation, gait. Cranial nerves II - XII grossly intact. No gross motor or sensory deficit. Ext: No C/C/E. Skin: Warm and dry without rash.
[2020-07-01 23:17] VITALS: BP 170/101; PULSE 54; RESP 16; TEMP 36.3; O2SAT 98
[2020-07-01 23:30] VITALS: BP 206/76; PULSE 54; RESP 16; O2SAT 99
[2020-07-01] MEDS: Lactated Ringers 1,000 ML 125 ML IV (23:41)
[2020-07-01] MEDS: fentaNYL 100 MCG/2 ML VIAL 50 MCG IVP ×2 (23:41→23:55)
[2020-07-01 23:45] LABS: Abs Immature Grans 0.02 10^3/uL (0.0-0.06); Absolute Eosinophil Count 0.19 10^3/uL (0.0-0.7); Absolute Lymphocyte Count 1.78 10^3/uL (1.2-3.4); Absolute Monocyte Count 0.49 10^3/uL (0.1-0.8); Absolute Neutrophil Count 6.19 10^3/uL (1.2-6.7); Basophils % 1.1; Eosinophils % 2.2; HCT 46.8 % (36.0-46.0); HGB 14.9 g/dL (11.2-15.7); Immature Grans % 0.2; Lactate 1.5 mmol/L (0.6-1.4); Lymphocytes % 20.3; MCH 27.4 pg (27.0-33.0); MCHC 31.8 % (32.0-36.0); MCV 86.2 fL (80-95); MPV 12.8 fL (8.0-11.0); Monocytes % 5.6; Neutrophils % 70.6; Nucleated RBC 0 %; Platelet Count 194 10^3/uL (130-400); RBC 5.43 10^6/uL (3.93-5.22); RDW 12.8 % (11.7-14.6); WBC 8.77 10^3/uL (4.4-10.8)
[2020-07-02] VITALS (44 sets, daily range): BP systolic 138–180; BP diastolic 58–84; PULSE 48–63; RESP 1–25; TEMP 36.6–37.4; O2SAT 94–100
--- NOTE | 2020-07-02 | RT.EKG_ITS ---
APPROVED REPORT Exam: Resting ECG Patient Location: E HR:54 bpm ECG Measurements Heart Rate 54 AXIS LA 149 P 59 QRSd 129 QRS -32 QT 559 T 257 QTc 530 Conclusion Sinus bradycardia...rate< 60 Left bundle branch block...QRSd>120, broad/notched R Prolonged QT interval...QTc >500mS I have reviewed and interpreted ECG and agree with software generated interpretation.
[2020-07-02 00:17] LABS: ALT 28 U/L (14-59); AST 21 U/L (15-37); Albumin 3.9 g/dL (3.4-5.0); Alkaline Phosphatase 93 U/L (46-116); Anion Gap 5.9 mmol/L (3-11); BUN 25 mg/dL (7-18); Bilirubin, Total 0.2 mg/dL (0.2-1.0); CO2 29.1 mmol/L (21.0-32.0); CREATININE 0.77 mg/dL (0.55-1.02); Calcium 8.8 mg/dL (8.5-10.1); Chloride 106 mmol/L (98-107); Glucose 151 mg/dL (74-106); Potassium 3.2 mmol/L (3.5-5.1); Sodium 141 mmol/L (136-145); Total Protein 7.2 g/dL (6.4-8.2)
[2020-07-02 00:31] LABS: Bilirubin Negative (Negative); Blood Trace-intact (Negative); Clarity Clear (Clear); Glucose 100 mg/dL (Negative); Ketones Negative (Negative); Leukocyte Esterase Negative (Negative); Nitrite Negative (Negative); Specific Gravity 1.025 (1.005-1.025); Urobilinogen 0.2 EU/dL (Up TO 0.2)
[2020-07-02 00:40] LABS: Bacteria Negative HPF (Negative); C & S Indicated? No; Casts Negative LPF (Negative); Crystals Negative HPF (Negative); Epithelial Cells Rare HPF (Negative); Mucus Trace (Negative); Other Cells Negative (Negative); RBC 0-2 HPF (0-2); WBC 0-2 HPF (0-5)
[2020-07-02] MEDS: POTASSIUM CHLORIDE 10 MEQ/100 ML BAG 100 MEQ IVPB (00:40)
--- NOTE | 2020-07-02 04:39 | W.PM.OP ---
Date of service: 07/02/20 Time of Service: 04:39 Operative Note Operative Note DATE OF PROCEDURE: 07/02/20 PRE-OP DIAGNOSIS: incarcerated left inguinal hernia- recurrent SURGEON: Cindy Arevalo FLIGHT PHYSICIAN: Gael Montoya ANESTHESIA: MAC and epidural ESTIMATED BLOOD LOSS: 5 PATHOLOGY: none sent COMPLICATIONS: None Patient was transported to: floor Patient's condition: stable Implants: see RN notes Procedure Description: DESCRIPTION OF PROCEDURE: The pt is then brought to the operative room suite. Anesthesia was administered per the Department of Anesthesia. The patient was prepped and draped in the usual sterile fashion using ChloraPrep scrub solution. Pause for the cause was done. sHe did receive preop IV antibiotics, and 20 mL of .25% Marcaine w/ epinephrine was used for local anesthetization. A #12 blade was used to make an incision over the external ring. Electrocautery used to provide hemostasis and dissect down to the fascia. She has moderate size hernia sac tubing through the internal ring. The hernia sac is obviously been there for quite some time. It is scarred down to the subcutaneous tissues and the fascia. This is all dissected out with a combination of blunt dissection. The round ligament is encountered this is ligated and tied with 0 Vicryl ties. The hernia sac is edematous and inflamed. It is opened with blunt dissection. There is a loop small bowel within a polyp cannot pink and healthy. This is dissected out from the sac and returned to the abdominal cavity. About half the sac is been like excised. The sac is then closed with 020 Vicryl in a running fashion returned to the abdominal cavity. The ring was enlarged to facilitate dissection of the sac. A large plug was placed into the ring defect and this is closed using 0 Vicryl in interrupted fashion. Electro-cautery is used to provide hemostasis. The patch was then placed onto the floor, and using 2-0 Vicryl, sewn into the pubic tubercle and tacked onto the external Bleich and over the incision and over the ring. The wound was copiously irrigated. There was no bleeding noted. The nerve is not sewn into the mesh, nor caught up in any sutures. Deep tissue was approximated with 3-0 Vicryl in a running fashion, and skin was approximated with 4-0 Monocryl in a running subcuticular fashion. Skin glue and sterile dressings are applied. The patient tolerated the procedure without complications to recovery in stable condition. CINDY AREVALO, DO
--- NOTE | 2020-07-02 04:40 | W.PM.HP.N ---
Date of service: 07/02/20 Time of Service: 04:40 Assessment and Plan Assessment and plan (1) Incarcerated left inguinal hernia: Status: Acute Assessment and plan: This side was actually the site she had repaired previously. It was done without mesh. There is a chance that we would have to do a bowel resection. That would prevent placing mesh. If there is no signs of strangulation to the bowels then we will place mesh. Will be done with antibiotics. She will be in the hospital for a day or 2 until bowel function returns. Anesthesia's plan is to use a spinal and use minimal anesthetics. Risks and benefits were reviewed with the patient and she is agreeable the procedure. Further recommendations based on findings at the time of surgery (2) Basal cell carcinoma: Status: Chronic (3) Irregular bowel habits: Status: Acute (4) History of adverse reaction to anesthesia: Status: Acute (5) Lyme disease: Status: Acute (6) Heart murmur: Status: Acute (7) Hypertension: Status: Chronic History of Present Illness Consults Consult date: 07/02/20 Requesting physician: Salomon Tristan Narrative: Patient patient is a 80-year-old female well-known to me. She has had previous remote history of left. 20. She started having pain last evening and has an obvious incarcerated left inguinal hernia. She has a history of complications from anesthetics. She went to have a right inguinal hernia repaired about 5 years ago and after she got Versed and before induction she developed a right bundle branch block and the surgery was subsequently canceled. She had a complete cardiac evaluation and not a nap anomalies were ever found. She recently underwent a colonoscopy with and had no problems with this. Informed consent is obtained for the procedural (explained in simple layman's terms that the pt and/or family could understand) explaining risks vs benefits and alternatives to the procedure and consequences if we do not do the procedure. Risks include but are not limited to:bleeding,infections, pneumonia, blood clots/DVT/PE, anesthesia(aspiration, damage to teeth/airway/CA/CVA//prolonged mechanical ventilation/PTX/IV infections), damage to bowel, bladder,blood vessels, ureters Leakage from anastomosis requiring colostomy/ Wound infections requirng further surgery. Scarring and disfigurement. Subsequent bowel obstructions from scar tissue. Reactions, chronic pain, chronic numbness, or infection to the mesh. Recurrent hernia. Review of Systems All systems reviewed & are unremarkable except as noted in HPI and below PFSH Medical History Basal cell carcinoma Essential hypertension Heart murmur History of adverse reaction to anesthesia Inguinal hernia, left Lyme disease Osteopenia Sleep apnea T wave inversion in EKG Surgical History Cholecystectomy HERNIA REPAIR Family History Mother Alzheimer's disease Father No problems noted. Social History Smoking/Tobacco Use Status: Never Alcohol Intake: current Alcohol Intake frequency: holidays/special occasions only Drug use: Never Do you feel safe at home: Yes Meds Home Medications and Allergies Home Medications Medication Instructions Recorded Confirmed Type benazepril 20 mg PO HS 07/04/13 07/01/20 History diltiazem HCl 180 mg PO HS 07/04/13 07/01/20 History nitroglycerin [Nitrostat] 0.4 mg SUBLINGUAL Q5 MIN PRN X3 10/22/17 07/01/20 Rx PRN #100 tab Lactobacillus acidophilus 100 mg PO DAILY 04/27/20 07/01/20 History ibuprofen 200 mg PO Q6H PRN 05/09/20 07/01/20 History Allergies Allergy/AdvReac Type Severity Reaction Status Date / Time propoxyphene HCl Allergy Severe see comment Unverified 07/01/20 23:25 [From Naomi Compound-65] latex Allergy Mild rash Unverified 07/01/20 23:25 antibiotic ointments AdvReac Mild rash Uncoded 07/01/20 23:25 Exam Const General: cooperative, healthy appearing, comfortable, no acute distress, well developed and well groomed Nutritional Appearance: average body habitus and well nourished Orientation: alert, awake and oriented x3 HENMT Head: normal to inspection, normocephalic and atraumatic Ears: hearing grossly normal bilaterally and external ears normal General nose exam: external nose normal Face and sinus: normal facial exam and sinuses nontender Mouth: oral mucosae normal, lip normal, tongue normal and moist mucous membranes Teeth and gingiva: dentition normal Eyes General: appearance normal, both eyes and all related structures Conjunctivae: conjunctivae normal Sclera: sclerae normal Pupils: PERRL Neck Neck: normal visual inspection and full ROM Chest Chest: normal inspection of the chest Resp Effort & Inspection: normal respiratory effort, able to speak in complete sentences, no cough, no nasal flaring, not tachypneic and no use of accessory muscles Auscultation: clear to auscultation bilaterally, no rales, no rhonchi and no wheezes Cardio Jugular venous pressure: no JVD Rate: regular rate Rhythm: regular rhythm GI Inspection: normal to inspection, no edema, non-distended, scar and visible herniation (left inguinal hernia ) Palpation: soft, firm, guarding, mass, tender and No ascites Auscultation: normal bowel sounds Skin General skin exam: no rashes or lesions noted Trauma: no lacerations or abrasions Other: Significant amount of actinic keratoses and chronic sun damage. 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 Neuro General: patient alert, patient oriented x3, oriented, gait normal, moves all extremities, no focal motor deficits and CN's II-XI intact bilaterally Cognition: normal cognition Speech: speech normal Gait: normal gait Motor: muscle tone normal throughout Extrem General: normal to inspection, full ROM and no clubbing, cyanosis or edema Psych Appearance: grossly normal and well kempt Mental Status: mental status grossly normal Speech and Movement: speech and movement normal Affect: normal affect Results Labs Result diagrams: 07/01/20 23:30 07/01/20 23:30 Labs: Laboratory Results - last 24 hr 07/01/20 07/01/20 07/01/20 23:30 23:30 23:30 WBC 8.77 RBC 5.43 H Hgb 14.9 Hct 46.8 H MCV 86.2 MCH 27.4 MCHC 31.8 L RDW 12.8 Plt Count 194 MPV 12.8 H Immature Gran % 0.2 Neutrophils % 70.6 Lymphocytes % 20.3 Monocytes % 5.6 Eosinophils % 2.2 Basophils % 1.1 Nucleated RBC % 0 Absolute Neutrophils 6.19 Absolute Lymphocytes 1.78 Absolute Monocytes 0.49 Absolute Eosinophils 0.19 Absolute Basophils 0.10 VBG Lactate 1.5 H Sodium 141 Potassium 3.2 L Chloride 106 Carbon Dioxide 29.1 Anion Gap 5.9 BUN 25 H Creatinine 0.77 Estimated GFR/1.73 m2 >= 60.00 Glucose 151 H Calcium 8.8 Total Bilirubin 0.2 AST 21 ALT 28 Alkaline Phosphatase 93 Total Protein 7.2 Albumin 3.9 Urine Color Urine Clarity Urine pH Ur Specific [place] Urine Protein Urine Ketones Urine Blood Urine Nitrite Urine Bilirubin Urine Urobilinogen Ur Leukocyte Esterase Urine RBC Urine WBC Ur Epithelial Cells Urine Crystals Urine Bacteria Urine Casts Urine Mucus Urine Other Ur Culture Indicated? Urine Glucose 07/02/20 00:00 WBC RBC Hgb Hct MCV MCH MCHC RDW Plt Count MPV Immature Gran % Neutrophils % Lymphocytes % Monocytes % Eosinophils % Basophils % Nucleated RBC % Absolute Neutrophils Absolute Lymphocytes Absolute Monocytes Absolute Eosinophils Absolute Basophils VBG Lactate Sodium Potassium Chloride Carbon Dioxide Anion Gap BUN Creatinine Estimated GFR/1.73 m2 Glucose Calcium Total Bilirubin AST ALT Alkaline Phosphatase Total Protein Albumin Urine Color Yellow Urine Clarity Clear Urine pH 7.0 Ur Specific [place] 1.025 Urine Protein Negative Urine Ketones Negative Urine Blood Trace-intact H Urine Nitrite Negative Urine Bilirubin Negative Urine Urobilinogen 0.2 Ur Leukocyte Esterase Negative Urine RBC 0-2 Urine WBC 0-2 Ur Epithelial Cells Rare Urine Crystals Negative Urine Bacteria Negative Urine Casts Negative Urine Mucus Trace Urine Other Negative Ur Culture Indicated? No Urine Glucose 100 Last Vital Signs Temp 36.3 C L 07/01/20 23:17 Pulse 60 07/02/20 04:15 Resp 25 H 07/02/20 04:15 BP 179/68 H 07/02/20 04:15 Pulse Ox 96 07/02/20 04:15 COVID-19 Screening Have you,or household,traveled outside [place] in last 14 days?: No Had IN PERSON contact w/suspected or confirmed C-19 person: No
[2020-07-02] MEDS: PIPERACILLIN/TAZO 3.375 GM in Normal Saline 50 ML IVPB ×3 (04:53→17:20)
[2020-07-02] MEDS: Lactated Ringers 1,000 ML 125 ML IV (05:03)
--- NOTE | 2020-07-02 07:14 | PGE_ITS ---
Date of Service Date of service: 07/02/20 Time of Service: 07:14 Assessment and Plan Assessment and plan (1) Incarcerated left inguinal hernia: Status: Acute Assessment and plan: The patient is doing well post-op. There pain is well controlled. They are having no nausea or vomiting. The pt is not having any chest pain or SOB, productive cough; no calf pain or swelling. The pt is making good urine. The pt pain is adequately controlled. The case was discussed with nursing and pateints progress reviewed. All of the pt's home medications were addressed and adjusted accordingly for their oral intact status. HEENT: no janudice. no eye pain/drainage/redness/swelling. mild sore throat cardio- NSR no chest pain, BP stable. pulm: no sob or productive cough. no hemoptysis insicion- clean/dry. dressing intact no excessive bleeding or drainage I discussed with the patient and/or there family about the findings in surgery and the pt's progress. We reviewed expectations for progress in the hospital; what the pt could expect for recovery time and length of stay. We discussed the importance of walking and pulmonary toilet to avoid blood clots and pneumonia. Continue current plans for pulmonary toilet, GI and DVT prophalxis. We shall continue the current plan for pain mangament as it is at an appropraite level and working well for the pt. Appriopriate measures will be taken for constipation prevention as well, and this was also reviewed witht the pt. wound care plan was reviewed with nursing as well. see orders -d/c tanner at 10am -up walking -She was not able to take her blood pressure medications last night because of pain and vomiting and nausea. We will give a bump to her now. We will see what her BPH is like this evening before we give her a p.m. dose. -Hopefully DC home in a.m. -No lifting over 5 pounds for 2 to 3 weeks. She will need to make arrangements to care for her animals. Objective Last Vital Signs Temp 36.3 C L 07/01/20 23:17 Pulse 60 07/02/20 04:15 Resp 25 H 07/02/20 04:15 BP 179/68 H 07/02/20 04:15 Pulse Ox 96 07/02/20 04:15 Laboratory Results - last 24 hr 07/01/20 07/01/20 07/01/20 23:30 23:30 23:30 WBC 8.77 RBC 5.43 H Hgb 14.9 Hct 46.8 H MCV 86.2 MCH 27.4 MCHC 31.8 L RDW 12.8 Plt Count 194 MPV 12.8 H Immature Gran % 0.2 Neutrophils % 70.6 Lymphocytes % 20.3 Monocytes % 5.6 Eosinophils % 2.2 Basophils % 1.1 Nucleated RBC % 0 Absolute Neutrophils 6.19 Absolute Lymphocytes 1.78 Absolute Monocytes 0.49 Absolute Eosinophils 0.19 Absolute Basophils 0.10 VBG Lactate 1.5 H Sodium 141 Potassium 3.2 L Chloride 106 Carbon Dioxide 29.1 Anion Gap 5.9 BUN 25 H Creatinine 0.77 Estimated GFR/1.73 m2 >= 60.00 Glucose 151 H Calcium 8.8 Total Bilirubin 0.2 AST 21 ALT 28 Alkaline Phosphatase 93 Total Protein 7.2 Albumin 3.9 Urine Color Urine Clarity Urine pH Ur Specific [place] Urine Protein Urine Ketones Urine Blood Urine Nitrite Urine Bilirubin Urine Urobilinogen Ur Leukocyte Esterase Urine RBC Urine WBC Ur Epithelial Cells Urine Crystals Urine Bacteria Urine Casts Urine Mucus Urine Other Ur Culture Indicated? Urine Glucose 07/02/20 00:00 WBC RBC Hgb Hct MCV MCH MCHC RDW Plt Count MPV Immature Gran % Neutrophils % Lymphocytes % Monocytes % Eosinophils % Basophils % Nucleated RBC % Absolute Neutrophils Absolute Lymphocytes Absolute Monocytes Absolute Eosinophils Absolute Basophils VBG Lactate Sodium Potassium Chloride Carbon Dioxide Anion Gap BUN Creatinine Estimated GFR/1.73 m2 Glucose Calcium Total Bilirubin AST ALT Alkaline Phosphatase Total Protein Albumin Urine Color Yellow Urine Clarity Clear Urine pH 7.0 Ur Specific [place] 1.025 Urine Protein Negative Urine Ketones Negative Urine Blood Trace-intact H Urine Nitrite Negative Urine Bilirubin Negative Urine Urobilinogen 0.2 Ur Leukocyte Esterase Negative Urine RBC 0-2 Urine WBC 0-2 Ur Epithelial Cells Rare Urine Crystals Negative Urine Bacteria Negative Urine Casts Negative Urine Mucus Trace Urine Other Negative Ur Culture Indicated? No Urine Glucose 100
[2020-07-02] MEDS: Lactated Ringers 1,000 ML 100 ML IV ×2 (08:00→16:13)
[2020-07-02] MEDS: ACETAMINOPHEN 1,000 MG/100 ML BTL 400 MG IVPB ×2 (08:12→15:33)
[2020-07-02] MEDS: dilTIAZem CD 180 MG CAPCR PO (09:32)
[2020-07-02] MEDS: Benazepril 10 MG TAB 20 MG PO ×2 (09:32→21:46)
[2020-07-02 11:16] LABS: COVID-19 RT-PCR UVMMC Result Negative (Negative)
[2020-07-02] MEDS: Metoprolol 12.5 MG TAB PO (14:14)
--- NOTE | 2020-07-02 14:29 | INITIAL_ITS ---
- If Service Date Differs Date of service: 07/02/20 Time of Service: 14:29 Care Management Initial Assess REASON FOR HOSPITALIZATION:: Incarcerated left inguinal Hernia PAST MEDICAL HISTORY/PAST SURGICAL HISTORY:: Medical History. Basal cell carcinoma. Essential hypertension. Heart murmur. History of adverse reaction to anesthesia. Inguinal hernia, left. Lyme disease. Osteopenia. Sleep apnea. T wave inversion in EKG. Surgical History. Cholecystectomy. HERNIA REPAIR PREVIOUS FUNCTIONAL STATUS/SOCIAL/FAMILY SUPPORTS:: Mey lives alone in [place], [place]. She has two children who live on the same road as her, and are identified as supportive. She reported that her and her had their current house built in 2016 to be their senior care home, but he about 2 years ago. 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 She has a dog, a cat, and likes to ride her horses. She is independent at baseline. CURRENT FUNCTIONAL STATUS:: Mey was sitting up in bed when CM met with her. She reported that she was doing well. She was pleasant and engaged in conversation. She stated that she may be ready for discharge tomorrow. CM offered her cart items, and she accepted a [employer] book to keep her busy while she is here. CM will continue to follow. ADVANCE DIRECTIVES:: None on file. Has patient been provided with info about the portal/API?: No Did the patient sign up for the portal?: No CODE STATUS:: Full Code INSURANCE COVERAGE / FINANCIAL ISSUES:: [facility]/ [employer]ARP CURRENT HOME/COMMUNITY SERVICES/EQUIPMENT:: No current services or equipment. PRIMARY CARE PHYSICIAN:: Marbella Serrato POTENTIAL DISCHARGE NEEDS:: follow up appointments PATIENT/FAMILY EDUCATION NEEDS:: Review discharge instructions regarding activity levels and medications, discussion of self care needs. ANTICIPATED BARRIERS TO DISCHARGE:: None identified. TRANSPORTATION:: Via private vehicle by family. PLAN:: Anticipate Mey will return home when medically cleared. She will be driven home by family via private vehicle. She will follow up with surgical services and her discharge plan of care. CM will continue to follow.
--- NOTE | 2020-07-02 22:08 | W.PM.DS.N ---
Date of service: 07/02/20 Time of Service: 22:08 DS: Diagnosis Discharge Diagnosis (1) Incarcerated left inguinal hernia: Status: Acute Discharge Plan Disposition Patient Disposition: HOME Condition: Stable Discharge Details Reason For Visit: INCARCERATED LEFT INGUINAL HERNIA Admit Date/Time: 07/02/20 06:40 Admit Provider: Cindy Mace Attending Provider: Cindy Mace Primary Care Provider: Marbella Serrato Home Meds and New Rx's Prescriptions: New ibuprofen 600 mg tablet 600 mg PO Q6H PRNQty: 30 RF: 12 Continued Lactobacillus acidophilus Capsule 100 mg PO DAILY RF: 0 benazepril 5 MG tablet 20 mg PO HS RF: 0 diltiazem HCl 180 MG capsule,extended release 24hr 180 mg PO HS RF: 0 nitroglycerin [Nitrostat] 0.4 MG tablet, sublingual 0.4 mg Sublingual Q5 MIN PRN X3 PRNQty: 100 RF: 0 ibuprofen 200 mg Tablet 200 mg PO Q6H PRNRF: 0 Discharge Instructions Additional Instructions: HERNIA REPAIR ? POSTOPERATIVE INSTRUCTIONS Patients who have this type of surgery can usually be expected to return to work within two weeks and have minimal amounts of discomfort. ? ACTIVITY: The day of surgery should be spent resting. However, you can be up for short periods of time, I.E., going to the bathroom or kitchen. Avoid lifting or straining. On the day following surgery, you can be up and about as desired. ? LIFTING: Restrict your lifting to no more than five (5) pounds for the first week following surgery. For the second week after surgery, don?t lift more than ten pounds. We will decide when you are done with restrictions and when you can return to work, at your follow-up appointment. ? DIET: There are no dietary restrictions following surgery. However, you may want to start with small amounts of liquids to avoid nausea the day of surgery. ? INCISION CARE: You will notice purple skin glue closing the incision. Do not peel this off- it will wear off on its own. After 24 hours you may shower. The dressing may be replaced for comfort, but is not necessary. An ice bag may be applied to the incision for 72 hours following surgery. ? SIGNS OF INFECTION: It will slowly disappear. If you have any increased redness, drainage, fever (above 100 degrees), please contact your doctor for an examination. ? DISCOMFORT: You may expect to have some mild discomfort at the incision sight. If severe pain develops you should contact your doctor for further instructions. ? URINATION: Patients who have surgery occasionally have problems urinating. If you experience problems and are not able to urinate within 6 hours following your surgery, please call your doctor immediately or go to your nearest Emergency Room for evaluation. ? DRIVING: NO driving for five (5) days after surgery or if you are still taking narcotic pain medication. ? MEDICATIONS: Alternate Tylenol 1000mg by mouth every 8hours and Ibuprofen 600mg every 6hours. Take the Tylenol and ibuprofen continuously for the first 72hrs- not just when you have pain. . Use ICE! Twenty minutes on, and then off, continuously for the first 72hours. If you are taking narcotic pain medication, follow the instructions on the label and do not drive. Pain medications can make you very constipated. Make sure you are moving your bowels daily. If not, take Miralax, milk of magnesia or magnesium citrate. ? REPORT: Unusual swelling, severe pain, unresolved nausea, signs of infection, or difficulty in urination to your surgeon. Follow up in clinic with Dr. Mace in 1-2 weeks. [phone] Activity:: no lifting over 5#'s Equipment/Supplies:: No Equipment Needed Diet:: As Tolerated DS: Summary Status at Discharge Functional status at discharge: independent ambulation Overall status at discharge: patient is back to baseline Mental Status: mental status grossly normal Speech and Movement: speech and movement normal Mood: congruent mood Affect: normal affect Exam Psych Mental Status: mental status grossly normal Speech and Movement: speech and movement normal Mood: congruent mood Affect: normal affect DS: Data Vitals/I&O Vitals and I&O: Vital Signs Temperature 36.6 C 07/02/20 15:55 Temperature Source Tympanic 07/02/20 15:55 Pulse 54 L 07/02/20 15:55 Pulse Rhythm Regular 07/02/20 15:39 Pulse 62 07/02/20 04:15 Respiratory Rate 17 07/02/20 15:55 Respiratory Effort Non-Labored 07/02/20 15:39 Respiratory Depth Normal 07/02/20 15:39 Respiratory Pattern Normal 07/02/20 15:39 Blood Pressure 158/71 H 07/02/20 15:55 Blood Pressure Mean 93 07/02/20 04:15 Pulse Oximetry 98 07/02/20 15:55 Oxygen Delivery Method Room Air 07/02/20 15:55 Oxygen Flow Rate 0 07/02/20 15:55 Pain Level 0 07/02/20 15:55 Comment 07/02/20 08:28 Intake & Output 07/01/20 07/02/20 07/02/20 23:59 11:59 23:59 Intake Total 1477.083 / 2580.416 1103.333 / 2580.416 Output Total 975 / 2925 1950 / 2925 Balance 502.083 / -344.584 -846.667 / -344.584 Weight 56.5 kg 54.431 kg Intake: IV 1477.083 / 2340.416 863.333 / 2340.416 Oral 240 / 240 Output: Urine 975 / 2925 1950 / 2925 Other: Urine Color Pale Yellow Yellow Yellow Urine Appearance Clear Clear Clear Urine Odor Normal Voiding Methods Toilet Data Completed and Pending Labs on day of discharge: Labs from last 24 hours 07/02/20 07/02/20 07/01/20 00:20 00:00 23:30 WBC 8.77 RBC 5.43 H Hgb 14.9 Hct 46.8 H MCV 86.2 MCH 27.4 MCHC 31.8 L RDW 12.8 Plt Count 194 MPV 12.8 H Immature Gran % 0.2 Neutrophils % 70.6 Lymphocytes % 20.3 Monocytes % 5.6 Eosinophils % 2.2 Basophils % 1.1 Nucleated RBC % 0 Absolute Neutrophils 6.19 Absolute Lymphocytes 1.78 Absolute Monocytes 0.49 Absolute Eosinophils 0.19 Absolute Basophils 0.10 VBG Lactate Sodium Potassium Chloride Carbon Dioxide Anion Gap BUN Creatinine Estimated GFR/1.73 m2 Glucose Calcium Total Bilirubin AST ALT Alkaline Phosphatase Total Protein Albumin Urine Color Yellow Urine Clarity Clear Urine pH 7.0 Ur Specific [place] 1.025 Urine Protein Negative Urine Ketones Negative Urine Blood Trace-intact H Urine Nitrite Negative Urine Bilirubin Negative Urine Urobilinogen 0.2 Ur Leukocyte Esterase Negative Urine RBC 0-2 Urine WBC 0-2 Ur Epithelial Cells Rare Urine Crystals Negative Urine Bacteria Negative Urine Casts Negative Urine Mucus Trace Urine Other Negative Ur Culture Indicated? No Urine Glucose 100 COVID-19 PCR Negative Nasopharyn COVID-19 PCR Not Applicable Ref Test Perform Site [place] [facility] 07/01/20 07/01/20 23:30 23:30 WBC RBC Hgb Hct MCV MCH MCHC RDW Plt Count MPV Immature Gran % Neutrophils % Lymphocytes % Monocytes % Eosinophils % Basophils % Nucleated RBC % Absolute Neutrophils Absolute Lymphocytes Absolute Monocytes Absolute Eosinophils Absolute Basophils VBG Lactate 1.5 H Sodium 141 Potassium 3.2 L Chloride 106 Carbon Dioxide 29.1 Anion Gap 5.9 BUN 25 H Creatinine 0.77 Estimated GFR/1.73 m2 >= 60.00 Glucose 151 H Calcium 8.8 Total Bilirubin 0.2 AST 21 ALT 28 Alkaline Phosphatase 93 Total Protein 7.2 Albumin 3.9 Urine Color Urine Clarity Urine pH Ur Specific [place] Urine Protein Urine Ketones Urine Blood Urine Nitrite Urine Bilirubin Urine Urobilinogen Ur Leukocyte Esterase Urine RBC Urine WBC Ur Epithelial Cells Urine Crystals Urine Bacteria Urine Casts Urine Mucus Urine Other Ur Culture Indicated? Urine Glucose COVID-19 PCR Nasopharyn COVID-19 PCR Ref Test Perform Site [facility] Medical History Basal cell carcinoma Essential hypertension Heart murmur History of adverse reaction to anesthesia Inguinal hernia, left Lyme disease Osteopenia Sleep apnea T wave inversion in EKG Surgical History Cholecystectomy HERNIA REPAIR Family History Mother Alzheimer's disease Father No problems noted. Social History Smoking/Tobacco Use Status: Never Alcohol Intake: current Alcohol Intake frequency: holidays/special occasions only Drug use: Never Do you feel safe at home: Yes
[2020-07-03] MEDS: Normal Saline Flush 10 ML SYR IVP ×2 (00:07→08:55)
[2020-07-03] MEDS: Ketorolac 15 MG/ML VIAL IVP ×2 (00:08→06:35)
[2020-07-03] MEDS: ACETAMINOPHEN 1,000 MG/100 ML BTL 400 MG IVPB ×2 (00:11→08:54)
[2020-07-03 05:06] VITALS: BP 148/52; PULSE 45; RESP 14; TEMP 36.6; O2SAT 96
[2020-07-03 07:51] VITALS: BP 151/72; PULSE 47; RESP 16; TEMP 36; O2SAT 97
--- NOTE | 2020-07-03 08:23 | W.PM.PROGNOT ---
Date of Service Date of service: 07/03/20 Time of Service: 08:23 Assessment and Plan Assessment and plan (1) Incarcerated left inguinal hernia: Status: Acute Assessment and plan: POD#1 she is doing very well. d/w pt wound care/activity/warning sings. Pt is using ibuprofen for pain. No lifting over 5#'s or riding horses for 2 wks She did have a BM today. F/u in clinic in 1 wks time. all questions answered and stable for d/c. Subjective Subjective Interval history since last seen: Pt is doing well. no headaches. No CP or SOB. no productive cough. no dysuria. no leg pain or swelling. She is up walking around. She is tolerating a regular diet. She moved her bowels. Minimal pain. Exam Resp Effort & Inspection: normal respiratory effort and able to speak in complete sentences Auscultation: clear to auscultation bilaterally Cardio Rate: regular rate Rhythm: regular rhythm GI Inspection: incision (c/d/i) Palpation: soft Auscultation: normal bowel sounds Extrem General: no clubbing, cyanosis or edema Objective Last Vital Signs Temp 36 C L 07/03/20 07:51 Pulse 47 L 07/03/20 07:51 Resp 16 07/03/20 07:51 BP 151/72 H 07/03/20 07:51 Pulse Ox 97 07/03/20 07:51 Laboratory Results - last 24 hr 07/02/20 00:20 COVID-19 PCR Negative Nasopharyn COVID-19 PCR Not Applicable Ref Test Perform Site [facility] lab
[2020-07-03] MEDS: Milk of Magnesia 30 ML CUP PO (08:54)
--- NOTE | 2020-07-03 17:21 | PDOC.CMDIS ---
- If Service Date Differs Date of service: 07/03/20 Time of Service: 17:21 LACE Index Scoring Tool - Questions: Length of Stay (in days): 2 Acuity (Admit via E.D.?): Yes Comorbidities: Any Tumor E.D. Visits: 2 - Answers: Total Score: 9 Risk of Readmission: Low Risk Care Management Discharge Reason for Hospitalization: Incarcerated left inguinal Hernia Discharge Plan: Mey will return home with no additional services at this time. She will be driven home via private vehicle by family. She will follow up with her PCP and discharge plan of care. She is happy to be going home. Patient/Family Education Needs: Review discharge instructions regarding activity levels and medications, discussion of self care needs including ask me three.
== END 2020-07-03 10:56 | disposition home or self-care (01) | DRG 352 ==
LOC: ER 07-02 01:14 → MS 07-02 06:46
PROVIDERS: Admitting Provider Surgery; Emergency Provider Emergency Medicine; PCP Nurse Practitioner Family; Visit Provider Surgery
PROC: 0YU60JZ Supplement Left Inguinal Region with Synthetic Substitute, Open Approach (ICD-10-PCS; CPT 49521; principal; 2020-07-02 04:15)
DX: K40.31 Unilateral inguinal hernia, with obstruction, without gangrene, recurrent (principal); I10 Essential (primary) hypertension; R01.1 Cardiac murmur, unspecified; G47.30 Sleep apnea, unspecified; M85.80 Other specified disorders of bone density and structure, unspecified site
CPT/HCPCS: 49521; 36415; 51702; 80053; 93005; 96365; 96375; 99222; 99238; 99285; NC; U0003; 81003; 81015; 83605; 85025; 93010; C1781; J0131; J1885; J2250; J2405; J2543; J3010; J3480; J3490

== ENCOUNTER → 2020-07-21 12:55 | Outpatient (BNVA) | payer MEDICARE, SELFPAY | PROVIDERS: PCP Nurse Practitioner Family; Referring Provider Nurse Practitioner Family; Visit Provider Surgery | DX: Z48.815 Encounter for surgical aftercare following surgery on the digestive system (principal); K40.30 Unilateral inguinal hernia, with obstruction, without gangrene, not specified as recurrent ==

== ENCOUNTER 2020-09-12 18:43 | Outpatient (REF) | payer MEDICARE, SELFPAY ==
[2020-09-12 22:27] LABS: Anion Gap 9.1 mmol/L (3-11); BUN 28 mg/dL (7-18); CO2 24.9 mmol/L (21.0-32.0); CREATININE 0.73 mg/dL (0.55-1.02); Calcium 8.7 mg/dL (8.5-10.1); Chloride 107 mmol/L (98-107); Glucose 74 mg/dL (74-106); Potassium 4.3 mmol/L (3.5-5.1); Sodium 141 mmol/L (136-145)
[2020-09-12 22:38] LABS: Hemoglobin A1C 5.4 % (<5.7)
== END 2020-09-12 19:03 ==
LOC: NCHCN 18:43
PROVIDERS: PCP Nurse Practitioner Family; Visit Provider Nurse Practitioner Family
DX: E78.5 Hyperlipidemia, unspecified (principal); R73.9 Hyperglycemia, unspecified; I10 Essential (primary) hypertension; R42 Dizziness and giddiness; R19.8 Other specified symptoms and signs involving the digestive system and abdomen; A69.20 Lyme disease, unspecified
CPT/HCPCS: 80048; 83036

== ENCOUNTER 2020-11-13 16:31 | Outpatient (REF) | payer MEDICARE, SELFPAY ==
[2020-11-13 21:30] LABS: Bilirubin Negative (Negative); Blood Moderate (Negative); Clarity Sl Cloudy (Clear); Glucose Negative (Negative); Ketones Negative (Negative); Leukocyte Esterase Moderate (Negative); Nitrite Negative (Negative); Urobilinogen 0.2 EU/dL (Up TO 0.2); pH 5.5 (5-8)
[2020-11-13 21:38] LABS: Bacteria Moderate HPF (Negative); C & S Indicated? Yes; Casts Negative LPF (Negative); Crystals Negative HPF (Negative); Epithelial Cells Few HPF (Negative); Mucus Negative (Negative); WBC >50 HPF (0-5)
== END 2020-11-13 16:51 ==
LOC: NCHCN 16:31
PROVIDERS: PCP Nurse Practitioner Family; Visit Provider Family Medicine
DX: N39.0 Urinary tract infection, site not specified (principal)
CPT/HCPCS: 87077; 81003; 81015; 87086; 87186

== ENCOUNTER 2021-04-04 01:29 | Outpatient (CLI) | payer MEDICARE, SELFPAY ==
--- NOTE | 2021-04-04 10:36 | DI.US_ITS ---
APPROVED REPORT EXAM: Comprehensive 2D, Doppler, and color-flow Echocardiogram Patient Location: Out-Patient Dog Bather: Corrina Hutchison RDCS (AE) Indications: Heart Murmur Other Information Study Quality: Adequate Conclusion Mild to moderate concentric left ventricular hypertrophy. Estimated ejection fraction is 55 to 60%. Chamber size is normal. There are no segmental wall motion abnormalities The right ventricle appears normal in size and systolic function Both atria are normal in size Trileaflet sclerotic aortic valve with trace regurgitation. No aortic stenosis Moderate mitral annular calcification. Mild mitral regurgitation Normal tricuspid valve with mild regurgitation. Pulmonic valve was not well visualized Wall motion Left Ventricle The left ventricle is normal size. The left ventricular systolic function is normal. The left ventric ular ejection fraction is within the normal range. Mild to moderate concentric left ventricular hyper trophy. There is normal LV segmental wall motion. There is no ventricular septal defect visualized. L VEF is 55-60%. Right Ventricle Right ventricle is grossly normal in size. Right ventricular systolic function is grossly normal. The RVSP is 20.7mmHg. Atria The left atrium size is normal. The right atrium size is normal. The interatrial septum is intact wit h no evidence for an atrial septal defect. Aortic Valve Aortic valve is calcified. The Aortic valve is sclerotic. Aortic valve is trileaflet. No hemodynamica lly significant valvular aortic stenosis. Trace aortic regurgitation. Mitral Valve Moderate mitral annular calcification. No evidence of mitral valve stenosis. Mild mitral regurgitatio n. Tricuspid Valve The tricuspid valve is normal in structure. There is no tricuspid valve stenosis. Mild tricuspid regu rgitation. Pulmonic Valve Pulmonic valve is not well visualized. There is no pulmonic valvular stenosis. There is no pulmonic v alvular regurgitation. Great Vessels The aortic root is normal in size. Ascending aorta is not well visualized. Aortic arch is not well vi sualized. IVC is normal in size and collapses >50% with inspiration. Pericardium There is no pericardial effusion. 2D Dimensions IVSD d PLAX 2.13 cm F: 0.6-1.0 LV Vol A2C d MOD 106.2 mL LVPW d PLAX 1.20 cm F: 0.6 - 1.0 LV Vol A4C d MOD 135.5 mL LVID d PLAX 3.99 cm F: 3.8 - 5.2 LA vol/ BSA A2C s A-L 30.2 mL/m2 LVDs 2.85 cm F: 2.2 - 3.5 LA vol/ BSA A4C s A-L 37.9 mL/m2 Ao Root d 2.97 cm F: 2.7 - 3.3 LA Vol/ BSA Biplane s A-L 34.0 mL/m2 RA Area A4C 10.50 cm2 LA Area A4C s MOD 18.35 cm2 RA Vol/ BSA A4C s A-L 12.9 mL/m2 LA Area A2C s MOD 16.29 cm2 LV EF Teichholz 55.0 % LV EF A4C MOD 55.7 % LVEF (Huynh's) 56.55 % F: 54 - 74 LV EF A2C MOD 57.1 % LV Volume 101.48 mL F: 46 - 106 LV EF Biplane MOD 56.5 % LV Volume Index 87.03 mL/m2 F: 29 - 61 SV 69.87 mL LV Vol Biplane MOD 123.6 mL SV Index 44.89 mL/m2 FS 28.15 % M-Mode TAPSE 1.70 cm (M/F) >1.7 LV Diastology MV E' medial 0.035 (>0.07 m/s) E/A Ratio 0.7 LV E/e MED 21.55 (<14) MV E Vmax 0.76 (0.4-1.3 m/s) MV E' lateral 0.059 (>0.1 m/s) MV A Vmax 1.15 (0.4-1.3 m/s) LV E/e LAT 12.70 (<14) MV E/A Ratio 0.64 MV E/E' medial 21.58 MV E/E' lateral 12.71 Aortic Valve LVOT Area 2.92 cm2 AoV Area Vmax 2.07 cm2 LVOT Vmax 1.55 m/s AoV Area/ BSA (Vmax) 1.33 cm2/m2 LVOT Mean Jose. 0.98 m/s BRIAN Mean Jose. 1.78 cm2 LVOT Peak Grad 9.6 mmHg BRIAN Mean Jose. Index 1.14 cm2/m2 LVOT Mean Grad 4.6 mmHg LVOT VTI 0.381 m LVOT Diam s 1.90 cm AoV Vmax 2.18 m/s Velocity Ratio 0.71 AoV Mean Jose. 1.60 m/s AoV Peak Grad 19.0 mmHg LVOT SV 110.98 mL AoV Mean Grad 11.1 mmHg AoV VTI 0.465 m AoV Area VTI 2.39 cm2 AoV Area/ BSA (VTI) 1.53 cm/m2 Mitral Valve MV DT 408 (160-240 msec) MV PHT 118 msec MV Area PHT 1.86 cm2 MV VTI 0.505 m MV Area VTI 2.20 (4.0-6.0 cm2) Pulmonary Valve PV Vmax 0.81 (0.5-1.5 m/s) RVOT Peak Gr. 0.76 mmHg PV Peak Grad 2.6 mmHg RVOT Mean Gr. 0.35 mmHg PV Mean Grad 1.3 mmHg RVOT VTI 0.095 m PV VTI 0.192 m RVOT Vmax 0.44 m/s Tricuspid Valve TR Peak Grad 17.6 mmHg TR Vmax 2.10 m/s RA Pressure 3.00 mmHg RVSP (TR) 20.7 mmHg
== END 2021-04-04 01:49 ==
PROVIDERS: PCP Nurse Practitioner Family; Visit Provider Nurse Practitioner Family
DX: R01.1 Cardiac murmur, unspecified (principal)
CPT/HCPCS: 93306

== ENCOUNTER 2022-03-21 10:19 | Outpatient (REF) | payer MEDICARE, SELFPAY ==
[2022-03-21 16:02] LABS: ALT 17 U/L (14-59); AST 17 U/L (15-37); Albumin 3.7 g/dL (3.4-5.0); Alkaline Phosphatase 92 U/L (46-116); Anion Gap 9.2 mmol/L (3-11); BUN 24 mg/dL (7-18); Bilirubin, Total 0.4 mg/dL (0.2-1.0); CO2 26.8 mmol/L (21.0-32.0); CREATININE 0.7 mg/dL (0.55-1.02); Calcium 8.4 mg/dL (8.5-10.1); Calculated LDL 128 mg/dL (<100); Chloride 106 mmol/L (98-107); Cholesterol 212 mg/dL (<200); Glucose 74 mg/dL (74-106); HDL Cholesterol 70 mg/dL (40-60); Potassium 4.1 mmol/L (3.5-5.1); Sodium 142 mmol/L (136-145); Total Protein 6.9 g/dL (6.4-8.2); Triglyceride 72 mg/dL (<150)
== END 2022-03-21 10:20 | disposition home or self-care (01) ==
LOC: NCHCN 10:19
PROVIDERS: PCP Nurse Practitioner Family; Visit Provider Nurse Practitioner Family
DX: E78.5 Hyperlipidemia, unspecified (principal); I10 Essential (primary) hypertension; R42 Dizziness and giddiness; R79.89 Other specified abnormal findings of blood chemistry
CPT/HCPCS: 80053; 80061

== ENCOUNTER → 2022-05-17 00:34 | Outpatient (CLI) | payer MEDICARE, SELFPAY ==
--- OUTSIDE RECORDS SUMMARY | 2022-05-17 01:01 | XMS_ITS | Encounter Summary ---
:1940 [place] [address] Care Team Providers Name Role Phone Karli Aguayo MD Primary Care Provider Encounter Details Date Type Department Care Team Description 12/06/2012 - Hospital Encounter Intermediate Cardiac Jorge L Villalobos STEMI (non-ST elevated myocardial infarction) (Primary Dx); 12/07/2012 Care Unit Sandra Naik MD Chest pain; [facility] (hype rtension) [facility] [place] [phone] Social History Tobacco Use Types Packs/Day Years Used Date Never Smoker Alcohol Use Standard Drinks/Week Comments No 0 (1 standard drink = 0.6 oz pure alcoho l) Sex Assigned at Date Recorded Not on file documented as of this encounter Last Filed Vital Signs Vital Sign Reading Time Taken Comments Blood Pressure 159/73 12/07/2012 2:33 PM EST Pulse 51 12/07/2012 2:33 PM EST Temperature 36.7 ??C (98.1 ??F) 12/07/2012 2:33 PM EST Respiratory Rate 13 12/07/2012 2:15 PM EST Oxygen Saturation 96% 12/07/2012 2:33 PM EST Inhaled Oxygen Concentration - - Weight 62.1 kg (136 lb 14.5 oz) 12/07/2012 12:01 AM EST Height 162.6 cm (5' 4) 12/07/2012 12:01 AM EST Body Mass Index 23.5 12/07/2012 12:01 AM EST documented in this encounter Discharge Instructions Discharge InstructionsAshley Marinelli APRN - 12/07/2012 3:55 PM EST Call your doctor if: Chest pain, shortness of breath, pain or swelling in legs occurs. If you have non-emergent questions between now and the time of your follow up appointments: During 8am-5pm Friday through Friday call [phone] to speak with a nurse in the cardiology clinic. All other times call [phone] and ask to speak to the hydraulic repairer cardiothoracic surgeon. Return to work: 48 hours. No lifting more than 5 lbs for 48 hours and no lifting more than 10 lbs for one week. Driving: No driving for 48 hours after catheterization. Follow up Appointments: PCP: Karli Aguayo MD, . December 15 at 09:45 Home oxygen therapy: N/A Arrangements for VNA/home care: none documented in this encounter Medications at Time of Discharge Medication Sig Dispensed Refills Start Date End Date benazepril (LOTENSIN) 40 mg Take 40 mg by 0 tablet mouth daily. DILTiazem (TIAZAC) 180 mg 24 Take 180 mg by 0 hr capsule mouth every morning. hydrochlorothiazide Take 25 mg by 0 (HYDRODIURIL) 25 mg tablet mouth daily. imiquimod (ALDARA) 5 % cream 1 Packet(s) Top 0 10/03/2016 Once daily documented as of this encounter Progress Notes Maged Newell RN - 12/07/2012 6:02 PM EST Discharge orders written, patient understands instructions and follow up visits, patient discharge to home with . Maged Newell RN - 12/07/2012 5:04 PM EST Patient off bedrest, right groin negative. Patient ambulated unit 320 feet, tolerated well. Maged Baeza RN - 12/07/2012 2:34 PM EST Patient arrived from cath recovery s/p diagnostic cath. Right groin negative. Maged Baeza RN - 12/07/2012 11:07 AM EST Patient medicated for laboratory director. Star Parson MD - 12/07/2012 9:20 AM EST Inpatient Cardiology Progress Note Patient Name: Mey Menjivar Service: [employer]ENT[employer]ORSE / PA Responsible Attending: Grazyna Villalobos MD Reason for continued hospitalization: Awaiting cardiac catherization Active Problems: Active Hospital Problems Diagnoses ??? NSTEMI (non-ST elevated myocardial infarction) Priority: High ??? HTN (hypertension) Priority: High Resolved Hospital Problems Diagnoses Date Resolved Interval History: Patient was admitted to [facility] for evaluation of cardiac disease. She will undergo cardiac catheterization today. She reports being pain free and sleeping well overnight. Review of Systems: Review of Systems Constitutional: Negative. HENT: Negative. Respiratory: Negative. Cardiovascular: Negative for chest pain, palpitations and leg swelling. Gastrointestinal: Negative. Genitourinary: Negative. Musculoskeletal: Negative. Neurological: Negative for dizziness and light-headedness. Hematological: Negative. Psychiatric/Behavioral: Negative. Telemetry: HR: 80s sinus rhythm Meds: ??? hydrochlorothiazide 25 mg Oral Daily ??? sodium chloride 0.9 % 5 mL Intravenous Q12H ??? sodium chloride 0.9 % 5 mL Intravenous Q12H ??? metoprolol tartrate 25 mg Oral Q12H SWAPNIL ??? aspirin 325 mg Oral Daily ??? sodium chloride 0.9 % 5 mL Intravenous Q12H ??? diaZEPam 5 mg Oral Once ??? lisinopril 40 mg Oral Daily ??? atorvastatin 40 mg Oral QPM ??? DISCONTD: benazepril 40 mg Oral Daily ??? DISCONTD: metoprolol tartrate 25 mg Oral Q12H SWAPNIL Physical Exam: Vital Signs: Last value Range last 24 hrs Temperature Temp: 37 ??C (98.6 ??F) Temp: [36.7 ??C (98.1 ??F)-37 ??C (98.6 ??F)] Heart Rate Heart Rate: 62 Heart Rate: [60-62] Blood Pressure BP: 134/62 mmHg BP: (134-174)/(62-81) Respiratory Rate Resp: 18 Resp: [18] SpO2 SpO2: 98 % SpO2: [97 %-99 %] Patient Vitals for the past 168 hrs: Weight 12/07/12 0001 62.1 kg (136 lb 14.5 oz) Physical Exam Constitutional: She is oriented to person, place, and time. She appears well-developed. HENT: Head: Normocephalic and atraumatic. Eyes: Pupils are equal, round, and reactive to light. Neck: Normal range of motion. Cardiovascular: Normal rate, regular rhythm and normal heart sounds. Pulmonary/Chest: Effort normal and breath sounds normal. Abdominal: Soft. Bowel sounds are normal. Musculoskeletal: Normal range of motion. She exhibits no edema. Neurological: She is alert and oriented to person, place, and time. Skin: Skin is warm and dry. Psychiatric: Her behavior is normal. Lab Comments: Recent Labs Basename 12/07/12 0018 WBC 11.2* HGB 14.6 HCT 42.9 PLATELET 231 Recent Labs Basename 12/07/12 0018 INR 1.0 Recent Labs Basename 12/07/12 0018 NA 141 K 3.6 CL 106 CO2 24 BUN 14 CREATININE 0.74 Recent Labs Basename 12/07/12 0018 AST 19 ALT 15 ALKPHOS 83 BILITOT 0.2 BILIDIR 0.1 Recent Labs Basename 12/07/12 0018 CALCIUM 8.7 MAGNESIUM 0.86 PHOS -- Recent Labs Basename 12/07/12 0624 12/07/12 0018 CK 192* 301* TROPONINT <0.03 <0.03 Pertinent Radiographic/Diagnostic Results: I have independently visualized the following studies: ECG: NSR with T wave changes in anterolateral leads Echocardiogram 12/07/12: 1. Left ventricular chamber size, wall thickness, global and segmental systolic function are within normal limits. Ejection fraction is estimated to be 65%. 2. Right ventricular chamber size, wall thickness, and systolic function are within normal limits. 3. There is no hemodynamically significant valve disease. Assessment: Mey Menjivar is a 72 y.o. female with a PMH of HTN transferred from [place] because of new onset of epigastric pressure today at 7.15 PM when she just started eating. Cardiac enzymes were positive. She was pain free on arrival to [facility]. She was already given aspirin 324 mg, plavix 300 mg and started on a heparin bolus and drip per ACS protocol. Awaiting echocardiogram and cardiac catheterization. 1.NSTEMI: Admit to telemetry Troponin: < 0.03 x 2 at [facility] EKG shows NSR with T wave changes in anterolateral leads Continue aspirin, atorvastatin 40 mg, metoprolol 25 mg BID and heparin Check fasting lipid profile and HBA1C. CP protocol Awaits cardiac cath. Echocardiogram showed EF 65%, no wall motion abnormalities. . 2. HTN - controlled Will hold on the cardizem as we are starting her on metoprolol given the mortality benefit in ACS Diet - NPO DVT prophy - heparin per ACS protocol Code status - Full code I have discussed with MD Ashley Pepe APRN 12/07/2012 Staff Rounding Addendum: I interviewed and examined the patient during comprehensive bedside rounds with LYNDSAY Marinelli. I agree with the summary of interval events, active hospital-focused problem list and plan of care.I personally reviewed the medications, laboratory results, treatment decisions and updated the patient on all of these elements. I independently confirmed the patient's exam findings with the exceptionthat I hear a 1-2/6 soft mid peaking systolic murmur at the left upper sternal border extending to the mid sternum on the left side. Otherwise I concur with Ashley's progress note as is described above. The plan was developed in discussion between myself and LYNDSAY Marinelli. The plan is to send Mrs. Menjivar to the laboratory director today to assess for the presence of significant coronary disease. Star Villalobos MD Staff Word Processing Operator Pager #[phone] Saman Rojas, PATEL - 12/07/2012 4:15 AM EST Patient oob to bath room, rhythm change noted on telemetry. VS( 159 66-61-99 % on RA) and EKG done , paged. Patient denies discomfort but states I just don't feel right. Vital signs , EKG and Tele strip shared with MD. documented in this encounter H&P Notes Trent Graham MD - 12/07/2012 12:08 AM EST Cardiology Admission H & P Patient Name: Mey Menjivar MRN No - [id number] Date of - 1940 Age - 72 y.o. Admission Date - 12/06/12 Inpatient Attending:Dr. Villalobos Chief Complain: abdominal pressure Active Problem List: Patient Active Problem List Diagnoses ??? AK (actinic keratosis) ??? History of basal cell carcinoma ??? BCC (basal cell carcinoma) Overview Note: HPI: 72 y/o woman with a PMH of HTN and no other significant cardiovascular history presented to [facility] onset of stomach pressure when she was about to start her dinner at 1915 last night. She walked for 2 miles yesterday and did snow shoeing as well. She is very active at home and usually walk 2 miles daily which includes going uphill. Today before starting her dinner she suddenly felt a pressure which was located in upper central stomach which quickly spread through out the stomach.This pain was sharp and was 10/10 initially. This lasted for about one and half hr. She didn't have any chest pain. She also denied for any radiation, any aggravating or relieving factors. She didn't have any SOB, palpitations, headache, dizziness. Her took her to the [place]. Her initial vitals were stable at[place]. Her ECG showed NSR w/o St changes. She became nauseous at [place] ad threw up once. She was given dilaudid 0.5 mg IV, zofran 4 mg IV and ASA 324 mg PO. Her lab data showed normal CBC, and BMP except glucose of 122 and BUN of 19. She had negative amylase and lipase. Her UA was negative. Her first set oftrop I was 0.18. She was given plavix 300 mg, started on a heparin with bolus and drip as well as IVF. She was transferred to the [facility] for further management On arrival to [facility] she was pain free. She denied for any complain. Past Medical History: HTN Past Surgical History: None Family History: Father - pacemaker Social History History Social History ??? Marital Status: Spouse Name: N/A Number of Children: N/A ??? 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 Smoking status: Never Smoker ??? Smokeless tobacco: Not on file ??? Alcohol Use: No ??? Drug Use: No ??? Sexually Active: No Other Topics Concern ??? Not on file Social History Narrative ??? No narrative on file Review of System 12 comprehensive review of system was negative except for GI - stomach pressure, nausea and vomiting at [place] CVS - No CP, SOB, palpitations RS - No SOB, cough or sputum production Home Medications: No current facility-administered medications on file prior to encounter. Current Outpatient Prescriptions on File Prior to Encounter Medication Sig Dispense Refill ??? DILTiazem (TIAZAC) 180 mg 24 hr capsule Take 180 mg by mouth every morning. ??? hydrochlorothiazide (HYDRODIURIL) 25 mg tablet Take 25 mg by mouth daily. ??? imiquimod (ALDARA) 5 % cream 1 Packet(s) Top Once daily Allergies: Allergies Allergen Reactions ??? Aspirin ??? Bacitracin ??? Caffeine ??? Propoxyphene Hcl Physical Exam: Vitals: Patient Vitals for the past 24 hrs: BP Temp Temp src Pulse Resp SpO2 Height Weight 12/07/12 0001 - - - - - - 162.6 cm (5' 4) 62.1 kg (136 lb 14.5 oz) 12/06/12 2342 174/81 mmHg 36.7 ??C (98.1 ??F) Oral 60 18 99 % - - Exam: Constitutional: well built, lying in bed in no apparent distress HENT:head normocephalic, no evidence of trauma, no nasal or aural discharge, no exudates in oral cavity, oral mucosa appears moist Eyes: EOMI, no icterus or pallor, Neck: supple, no thyromegaly or lymphadenopathy CVS: Regular rythm, normal S1and S2, systolic murmur in aortic area with radiation to neck b/l, grade 2/6; no gallop or rub, JVP ,Distal pulses 2+ bilaterally Pulmonary: good air entry bilaterally,CTAB. GI: abdomen soft, NTND, bowel sounds positive, no rebound or gaurding, no organomegaly Musculoskeletal: no joint swellings or deformities Extremities: no edema Skin: no rashes noted Neuro: no gross focal deficits on limited neuro exam Psych: mood and affect normal. Not anxious looking. Diagnostics: Reviewed personally ECG - NSR, prolonged QT, left axis deviation and No ST changes Labs: Recent Results (from the past 24 hour(s)) CBC (WITH DIFF) Component Value Range WBC 11.2 (*) 4.0 - 10.0 x10(3)/mcL RBC 4.98 3.93 - 5.22 x10(6)/mcL Hemoglobin 14.6 11.2 - 15.7 gm/dL Hematocrit 42.9 34.0 - 45.0 % MCV 86.1 79.0 - 94.0 fL MCH 29.3 26.6 - 32.2 pg MCHC 34.0 32.0 - 36.5 gm/dL Platelets 231 145 - 370 x10(3)/mcL RDWSD 42.9 35.0 - 46.0 fL RDWCV 13.7 10.9 - 14.4 % MPV 12.0 9.0 - 12.0 fL COMPREHENSIVE METABOLIC PANEL (NON-FASTING) Component Value Range Glucose Lvl 125 60 - 199 mg/dL BUN 14 8 - 18 mg/dL Creatinine 0.74 0.70 - 1.20 mg/dL Sodium 141 135 - 145 mmol/L Potassium 3.6 3.5 - 5.0 mmol/L Chloride 106 98 - 107 mmol/L CO2 24 22 - 31 mmol/L Anion Gap 11 5 - 15 mmol/L Calcium 8.7 8.5 - 10.5 mg/dL Total Protein 6.8 6.4 - 8.3 gm/dL Albumin 4.3 3.2 - 5.2 gm/dL AST 19 0 - 30 unit/L ALT 15 0 - 30 unit/L Alk Phos 83 40 - 104 unit/L Total Bilirubin 0.2 0.2 - 1.3 mg/dL Bili, Direct 0.1 0.0 - 0.3 mg/dL Estimated GFR >60 >=60 CARDIAC ENZYMES Component Value Range Troponin-T <0.03 <=0.03 ng/mL CK, Total 301 (*) 0 - 160 unit/L PROTHROMBIN TIME Component Value Range PT 12.8 11.9 - 14.7 sec INR 1.0 0.9 - 1.1 APTT Component Value Range PTT 36 (*) 25 - 35 sec MAGNESIUM Component Value Range Magnesium 0.86 0.69 - 1.07 mmol/L DIFFERENTIAL, AUTOMATED Component Value Range Neutrophils % 78.1 (*) 34.0 - 71.0 % Neutr Abs (ANC) 8.73 (*) 1.50 - 6.30 x10(3)/mcL Lymphocytes % 16.7 (*) 19.0 - 53.0 % Lymphocytes Abs 1.9 1.0 - 3.6 x10(3)/mcL Monocytes % 3.8 (*) 4.0 - 13.0 % Monocyte Abs 0.4 0.2 - 1.0 x10(3)/mcL Eosinophils % 0.4 0.0 - 7.0 % Eosinophils Abs 0.0 0.0 - 0.5 x10(3)/mcL Basophils % 0.8 0.0 - 2.0 % Basophils Abs 0.1 0.0 - 0.2 x10(3)/mcL Immature Gran % 0.20 0.00 - 0.66 % Aury Gran Abs 0.02 0.00 - 0.05 x10(3)/mcL ELLIOT risk Score Point Score /MS/mortality in 14 days Age >= 65 1 0-1 5% >= 3 risk Factor (F/H of premature CVD men <45 And women <55 , Smoking, hyperlipidemia) 2 8% Known CAD (>=50% stenosis) 3 13% ASA use in last 7 days 4 20% Angina episodes >= 2in 24 hrs [address] 26% ST deviation >- 0.5 mm 6-7 41% +ve cardiac biomarkers 1 Total 2 ASHLEE 2000;284:825 Higher risk pts (TRS>=3) derive high benefit from LMWH, GP IIb/IIIa inhibitors and early angiography (JACC 2003;41:895) Assessment and Plan: NSTEMI -this is a 72 y/o woman with a PMH of HTN transferred from [place] because of new onset of epigastric pressure today at 7.15 PM when she just started eating. This is the first time she had this problem. She didn't have typical anginal symptoms. Her ECG was in NSR w/o ST changes. Her [place] labs were unremarkable except her cardiac enzymes were positive. She was pain free on arrival to [facility]. She was already given aspirin 324 mg, plavix 300 mg and started on a heparin bolus and drip per ACS protocol. Will admit her to [facility] for further management of her NSTEMI 1.NSTEMI: Admit to telemetry Cycle bio-markers Repeat EKG Continue aspirin, atorvastatin 40 mg, metoprolol 25 mg BID and heparin Check fasting lipid profile and HBA1C. CP protocol Needs cardiac cath. Echo in AM The indications, expected benefits and potential risks of heart catheterization were reviewed in detail with the patient. The potential for , heart attack, stroke, kidney failure, hemorrhage, allergic reaction, vascular complications and infection were reviewed in detail. The possibility of stenting and other percutaneous intervention with associated risk was reviewed. The possible need for emergent coronary artery bypass surgery was reviewed. After a discussion about the above, and having answered all questions posed, the patient was provided with a consent which was reviewed and signed. HTN - controlled Will hold on the cardizem as we are starting her on metoprolol given the mortality benefit in ACS Diet - NPO DVT prophy - heparin per ACS protocol Code status - Full code More than 50 mins time spent in clinical decision making Provider: Trent Graham Pager: [phone] documented in this encounter Procedure Notes Provider, Scanning - 12/08/2012 10:22 AM ESTAssociated Order(s): SCAN DOC: ARCHITECTURAL TECHNICIAN Provider, Scanning - 12/07/2012 12:30 PM ESTAssociated Order(s): CARDIAC CATHETERIZATION documented in this encounter Miscellaneous Notes Miscellaneous - Provider, Scanning - 12/08/2012 8:15 PM EST Miscellaneous - Provider, Scanning - 12/08/2012 8:15 PM EST Miscellaneous - Provider, Scanning - 12/08/2012 10:22 AM EST Miscellaneous - Provider, Scanning - 12/08/2012 10:22 AM EST Discharge Summary - Star Villalobos MD - 12/07/2012 12:19 PM EST Inpatient Cardiology - Discharge Summary Patient Name: Mey Menjivar Patient Age: 72 y.o. Birthdate: 1940 Admit date: 12/06/2012 Discharge date : 12/07/12 Attending Physician: Star Villalobos MD Discharge Diagnoses (Hospital Problems) and Secondary Diagnoses (Chronic Problems): Active Hospital Problems Diagnoses ??? NSTEMI (non-ST elevated myocardial infarction) Priority: High ??? HTN (hypertension) Priority: High Resolved Hospital Problems Diagnoses Date Resolved Active Non-Hospital Problems Diagnoses ??? AK (actinic keratosis) ??? History of basal cell carcinoma ??? BCC (basal cell carcinoma) Studies: Echocardiogram: 1. Left ventricular chamber size, wall thickness, global and segmental systolic function are within normal limits. Ejection fraction is estimated to be 65%. 2. Right ventricular chamber size, wall thickness, and systolic function are within normal limits. 3. There is no hemodynamically significant valve disease. CARDIAC CATHETERIZATION - Procedure: Coronary Angiography Showed normal coronary arteries History of Presentation: 72 y/o woman with a PMH of HTN presented to [facility] for sudden onset of chest pressure as she was aboutto start her dinner at 19:15 last night. Today before starting her dinner she suddenly felt a pressure which was located in upper central stomach which quickly spread through out the stomach and mid-giselle rnum.This pain was sharp and was 10/10 initially. This lasted until she presented to the ED at [facility] and was given dilaudid. She denied for any radiation, any aggravating or relieving factors. She didn't have any SOB, palpitations, headache, dizziness. Her took her to the [place]. Her initial vitals were stable at [place]. Her ECG showed NSR w/o St changes. She became nauseous at [place] ad threw up once. She was given dilaudid 0.5 mg IV, zofran 4 mg IV andASA 324 mg PO. Her lab data showed normal CBC, and BMP except glucose of 122 and BUN of 19. She had negative amylase and lipase. Her UA was negative. Her first set of trop I was 0.18. She was given plavix 300 mg, started on a heparin with bolus and drip as well as IVF. She was transferred to the [facility] for further management On arrival to [facility] heparin was infusing and she was pain free. Hospital Course: 1. Chest pain Troponin at [facility] were < 0.03 x 2 sets. EKG initially showed NSR and later showed NSR with t-wave inversions in V3-V6. Echocardiogram was negative for wall motion abnormalities and EF 65%. She was taken to cardiac catheterization. Cardiac catheterization showed normal coronary arteries. Important Studies and Lab Data: Labs: Lab Results Component Value Date WBC 11.2* 12/07/2012 HGB 14.6 12/07/2012 HCT 42.9 12/07/2012 PLATELET 231 12/07/2012 Recent Labs Basename 12/07/12 0018 INR 1.0 Lab Results Component Value Date NA 141 12/07/2012 K 3.6 12/07/2012 CL 106 12/07/2012 CO2 24 12/07/2012 BUN 14 12/07/2012 CREATININE 0.74 12/07/2012 No results found for this basename: TSH in the last 7068 hours Recent Labs Basename 12/07/12 0018 HA1C 5.7 Recent Labs Basename 12/07/12 0624 12/07/12 0018 CK 192* 301* TROPONINT <0.03 <0.03 Lab Results Component Value Date CHLPL 201* 12/07/2012 HDL 79 12/07/2012 CHOLHDL 2.5 12/07/2012 TRIG 72 12/07/2012 LDLCHOL 108* 12/07/2012 Pending Studies and Lab Data: None Discharge Conditions/Prognosis: Stable Discharge to: Home Discharge Medications: Current Discharge Medication List Continued medications, unchanged Dose Details benazepril (LOTENSIN) 40 mg 40 mg Take 40 mg by mouth daily. DILTiazem (TIAZAC) 180 mg 180 mg Take 180 mg by mouth every morning. hydrochlorothiazide (HYDRODIURIL) 25 mg 25 mg Take 25 mg by mouth daily. imiquimod (ALDARA) 5 % cream 1 Packet(s) Top Once daily Updated Allergies/ADRs: Allergies Allergen Reactions ??? Bacitracin ??? Caffeine ??? Propoxyphene Hcl Follow-up Recommendations for Providers: Will need follow-up for non-cardiac cause of chest pressure Instructions Given to Patient at Discharge: Provider Instructions None General Instructions Call your doctor if: Chest pain, shortness of breath, pain or swelling in legs occurs. If you have non-emergent questions between now and the time of your follow up appointments: During 8am-5pm Friday through Friday call [phone] to speak with a nurse in the cardiology clinic. All other times call [phone] and ask to speak to the hydraulic repairer cardiothoracic surgeon. Return to work: 48 hours. No lifting more than 5 lbs for 48 hours and no lifting more than 10 lbs for one week. Driving: No driving for 48 hours after catheterization. Follow up Appointments: PCP: Karli Aguayo MD, . December 15 at 09:45 Home oxygen therapy: N/A Arrangements for VNA/home care: none Provider Contact Information: Ashley Marinelli APRN [phone] Discharge References/Attachments: Discharge References/Attachments None Signed: Ashley Marinelli APRN 12/07/2012 Cardiology Staff Discharge Day Notation: I interviewed and examined the patient as part of the attending rounds process today. I personally reviewed the overnight events, medications, supplemental lab data and plan for discharge. The patient was updated on the acute cardiovascular problem that was addressed during the admission and the plan for follow-up care. I spent less than 30 minutes accomplishing the tasks denoted above. Details provided in the discharge summary document. Briefly the patient was transferred to this facility with findings concerning for an ACS. We sent her to the laboratory director today where her coronaries werefound to be normal appearing. Her left ventricular systolic function is normal. She tolerated the procedure today and was able to be discharged without significant complication. For any questions or issues regarding this hospitalization please feel free to contact me at [phone]. Star Villalobos MD [facility] Miscellaneous - Provider, Scanning - 12/07/2012 12:15 AM EST Miscellaneous - Provider, Scanning - 12/07/2012 12:10 AM EST documented in this encounter Plan of Treatment Not on filedocumented as of this encounter Procedures Procedure Name Priority Date/Time Associated Comments Diagnosis ARCHITECTURAL TECHNICIAN SCAN 12/08/2012 10:22 Res ults for this AM EST procedure are i n the results section. CARDIAC CATHETERIZATION Routine 12/07/2012 12:19 Results for this PM EST procedure are i n the results section. CARDIAC CATHETERIZATION 12/07/2012 11:23 cad AM EST ECHOCARDIOGRAM Routine 12/07/2012 9:42 NSTEMI (non-ST Results for this TRANSTHORACIC AM EST elevated procedure are in myocardial the results infarction) section. CARDIAC ENZYMES STAT 12/07/2012 6:24 Results f or this ([facility] [place] AM EST procedure are i n the results section. APTT STAT 12/07/2012 6:24 Results for this AM EST procedure are i n the results section. LIPID PANEL (REFLEX STAT 12/07/2012 6:24 Resul ts for this DIRECT LDL) AM EST procedure are i n the results section. EKG 12-LEAD STAT 12/07/2012 3:21 NSTEMI (non-ST Results fo r this AM EST elevated procedure are i n myocardial the results infarction) section. DIFFERENTIAL, AUTOMATED STAT 12/07/2012 12:18 Results for this AM EST procedure are i n the results section. CARDIAC ENZYMES STAT 12/07/2012 12:18 Results for this ([facility]) AM EST procedure are i n the results section. APTT STAT 12/07/2012 12:18 Results for this AM EST procedure are i n the results section. PROTHROMBIN TIME STAT 12/07/2012 12:18 Results for this AM EST procedure are i n the results section. CBC (WITH DIFF) STAT 12/07/2012 12:18 Results for this AM EST procedure are i n the results section. MAGNESIUM STAT 12/07/2012 12:18 Results for this AM EST procedure are i n the results section. HEMOGLOBIN A1C Routine 12/07/2012 12:18 Results f or this AM EST procedure are i n the results section. COMPREHENSIVE METABOLIC STAT 12/07/2012 12:18 Results for this PANEL (NON-FASTING) AM EST procedur e are in the results section. EKG 12-LEAD STAT 12/07/2012 12:16 NSTEMI (non-ST Results f or this AM EST elevated procedure are i n myocardial the results infarction) section. 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 (12/08/2012 10:22 AM EST) Narrative 12/08/2012 12:47 PM EST Procedure Note Provider, Scanning - 12/08/2012 10:22 AM EST Scanning Provider MEDIA MGR SCAN EXT ORDR/RSLT Cardiac Catheterization (12/07/2012 12:19 PM EST) Specimen (Source) Anatomical Location Collection Method / Collectio n Time Received Time / Laterality Volume Narrative Miky Aguilar MD - 12/07/2012 4:[address] Procedure Note Provider, Scanning - 12/07/2012 12:30 PM EST Trent Polo MD CARDIAC CATH ORDERABLES Echo Transthoracic (Complete) (12/07/2012 9:42 AM EST) P athologist Signature EF 65 iCIMS SYSTEM Specimen (Source) Anatomical Location Collection Method / Collectio n Time Received Time / Laterality Volume 12/07/2012 Narrative [employer] [facility] - 12/07/2012 9:55 AM EST Procedure: ? Transthoracic Echocardiogram Patient: ? LEESA CALLEJAS W ?(Age): 1940(72) Med Rec#: ?[id number] ? Sex: ?F ? Site Loc: ?[facility] [place] ? Ht / Wt: ??162(cm)/62(kg) Pt. Loc: ? Adult Floor ?BSA: ?1.67 Study Date: ?12/07/2012 ? Pt. Type: Inpatient Tape: ? Referring: Trent Graham Referring: CARLOS WILLIS E Smelter Charger 2: Miky Sanchez RAFA Diagnosis: ??Acute MS (410.90) CPT Code(s): ??Echo Full (02048), ??Spec tral Doppler (56148), ??Color Doppler (09924), Indication(s): ??Myocardial infarction Rhythm: HR ?BP ?156/66 ?? SUMMARY: 1. Left ventricular chamber size, wall t hickness, global and segmental systolic function are within normal limi ts. Ejection fraction is estimated to be 65%. 2. Right ventricular chamber size, wall thickness, and systolic function are within normal limits. 3. There is no hemodynamically significa nt valve disease. 4. See remainder of report for additiona l findings. FINDINGS: Left Ventricle ?Left ventricular chamber size, wal l thickness, global and segmental systolic function are within normal limi ts. Ejection fraction is estimated to be 65%. ?There are no left ventricular segm ental wall motion abnormalities. ?Doppler assessment is consistent w ith normal left sided filling pressure. Left Atrium ?The left atrium is mildly dilated. Right Ventricle ?Right ventricular chamber size, wa ll thickness, and systolic function are within normal limits. ?The estimated pulmonary artery sys tolic pressure is 19 mmHg. ?The estimated right atrial pressur e is 3 mmHg. Right Atrium ?The right atrium is normal in size . Aortic Valve ?The aortic valve is probably tricu spid. ?There is no evidence of aortic annabelle ve thickening. ?There is aortic annular calcificat ion. ?There is no evidence of aortic reg urgitation. Mitral Valve ?The mitral valve appears normal in structure and function. ?There is posterior mitral annular calcification. ?There is trace mitral regurgitatio n present. Tricuspid Valve ?The tricuspid valve appears normal in structure and function. ?There is trace tricuspid regurgita tion present. Pulmonic Valve ?The pulmonic valve is not well vis ualized. ?There is no evidence of pulmonic r egurgitation. Pericardium ?The pericardium appears normal and there is no evidence of a pericardial effusion. ?Bilateral pleural effusions are pr esent. Aorta ?The aortic root is normal in size. ?The ascending aorta is normal in s ize. Pulmonary Artery ?The main pulmonary artery appears normal. Venous ?The inferior vena cava appears nor mal in size. ?There is a greater than 50% respir atory change in the inferior vena cava dimension. Misc ?See remainder of report for additi onal findings. ?Two-dimensional echo, spectral Dop pler and color Doppler performed. Wall Motion: Segment Name ?Rest ? Base-Anteroseptal ?? Normal ? Base-Anterior ? Normal ? Base-Anterolateral ??Normal ? Base-Posterolateral Normal ? Base-Inferior ? Normal ? Base-Inferoseptal ?? Normal ? Mid-Anteroseptal ?Normal ? Mid-Anterior ?Normal ? Mid-Anterolateral ?? Normal ? Mid-Posterolateral ??Normal ? Mid-Inferior ?Normal ? Mid-Inferoseptal ?Normal ? [place]-Septal ? Normal ? [place]-Anterior ? Normal ? [place]-Lateral ?Normal ? [place]-Inferior ? Normal ? [place]-Tip ?Normal ? Chambers ?Value ?Units (Range) ? LV EF Est ? 65 ? % (55 to 80) ? IVSd 2D ? 1.2 ?cm ? LVIDd 2D ?3.9 ?cm ? PWd 2D ?1.4 ?cm ? LVIDs 2D ?2.5 ?cm ? LVFS 2D ? 36 ? % ? LA area ? 24 ? cm2 (<21) ? RA area ? 14 ? cm2 (<18) ? Ao root ? 3.3 ?cm (2.1 to 3.6) ? Asc Ao ?3.2 ?cm (2 to 3.5) ? Mitral Valve ?Value ?Units (Range) ? E peak ?0.8 ?m/sec ? E/A ratio ? 0.8 ?ratio ? MVDT ?327 ?msec ? E1 ?0.04 ? m/sec ? E/E1 ?20 ? ratio ? Tricuspid/Pulmonic Valves ?Value ?Units (Range) ? TR peak nikhil ? 2 ?m/sec ? RAP ? 3 ?mmHg ? RVSP/PASP ? 19 ? mmHg ? This report has been electronically sign ed by: _ Alfa Bailon M.D. ? 12/07/2012 09:54:38 Images reviewed and interpretation linda perez [facility] Cardiac Ultrasound Laboratory Procedure Note Alfa Bailon MD - 12/07/2012Format ting of this note might be different from the original. Procedure: Transthoracic Echocardiogram Patient: LEESA ROCHA(Age): 08/1940(72) Med Rec#: [id number] Sex: F Site Loc: [facility] [place] Ht / Wt: 162(cm)/62(kg) Pt. Loc: Adult Floor BSA: 1.67 Study Date: 12/07/2012 Pt. Type: Inpatie nt Tape: Referring: Trent Graham Referring: CARLOS WILLIS E Smelter Charger 2: Miky Sanchez [facility] Diagnosis: Acute MS (410.90) CPT Code(s): Echo Full (83205), Spectral Doppler (95317), Color Doppler (43266), Indication(s): Myocardial infarction Rhythm: HR BP 156/66 SUMMARY: 1. Left ventricular chamber size, wall t hickness, global and segmental systolic function are within normal limi ts. Ejection fraction is estimated to be 65%. 2. Right ventricular chamber size, wall thickness, and systolic function are within normal limits. 3. There is no hemodynamically significa nt valve disease. 4. See remainder of report for additiona l findings. FINDINGS: Left Ventricle Left ventricular chamber size, wall thi ckness, global and segmental systolic function are within normal limi ts. Ejection fraction is estimated to be 65%. There are no left ventricular segmental wall motion abnormalities. Doppler assessment is consistent with n ormal left sided filling pressure. Left Atrium The left atrium is mildly dilated. Right Ventricle Right ventricular chamber size, wall th ickness, and systolic function are within normal limits. The estimated pulmonary artery systolic pressure is 19 mmHg. The estimated right atrial pressure is 3 mmHg. Right Atrium The right atrium is normal in size. Aortic Valve The aortic valve is probably tricuspid. There is no evidence of aortic valve th ickening. There is aortic annular calcification. There is no evidence of aortic regurgit ation. Mitral Valve The mitral valve appears normal in stru cture and function. There is posterior mitral annular calci fication. There is trace mitral regurgitation pre sent. Tricuspid Valve The tricuspid valve appears normal in s tructure and function. There is trace tricuspid regurgitation present. Pulmonic Valve The pulmonic valve is not well visualiz ed. There is no evidence of pulmonic regurg itation. Pericardium The pericardium appears normal and ther e is no evidence of a pericardial effusion. Bilateral pleural effusions are present . Aorta The aortic root is normal in size. The ascending aorta is normal in size. Pulmonary Artery The main pulmonary artery appears kyra l. Venous The inferior vena cava appears normal i n size. There is a greater than 50% respiratory change in the inferior vena cava dimension. Misc See remainder of report for additional findings. Two-dimensional echo, spectral Doppler and color Doppler performed. Wall Motion: Segment Name Rest Base-Anteroseptal Normal Base-Anterior Normal Base-Anterolateral Normal Base-Posterolateral Normal Base-Inferior Normal Base-Inferoseptal Normal Mid-Anteroseptal Normal Mid-Anterior Normal Mid-Anterolateral Normal Mid-Posterolateral Normal Mid-Inferior Normal Mid-Inferoseptal Normal [place]-Septal Normal [place]-Anterior Normal [place]-Lateral Normal [place]-Inferior Normal [place]-Tip Normal Chambers Value Units (Range) LV EF Est 65 % (55 to 80) IVSd 2D 1.2 cm LVIDd 2D 3.9 cm PWd 2D 1.4 cm LVIDs 2D 2.5 cm LVFS 2D 36 % LA area 24 cm2 (<21) RA area 14 cm2 (<18) Ao root 3.3 cm (2.1 to 3.6) Asc Ao 3.2 cm (2 to 3.5) Mitral Valve Value Units (Range) E peak 0.8 m/sec E/A ratio 0.8 ratio MVDT 327 msec E1 0.04 m/sec E/E1 20 ratio Tricuspid/Pulmonic Valves Value Units (Range) TR peak nikhil 2 m/sec RAP 3 mmHg RVSP/PASP 19 mmHg This report has been electronically sign ed by: _ Alfa Bailon M.D. 12/07/2012 09:54: 38 Images reviewed and interpretation linda perez [facility] Cardiac Ultrasound [facility] Trent Polo MD ECHO ORDERABLES Performing Organization Address City/State/ZIP Code Phon e Number [facility] (ABNORMAL) Lipid panel (fasting) (12/07/2012 6:24 AM EST) P athologist Signature Chol, Total 201 (H) <=199 CERNER mg/dL MILLENNIUM Comment: Recommendations of the NCEP Adult Treatm ent Panel for the following risk cutoff thresholds for the [place] populatio n: Desirable: <200 mg/dL Borderline High: 200-239 mg/dL High: > or = 240 mg/dL Triglycerides 72 <=149 mg/dL CERNER MILLENN IUM Comment: Reference Range: Normal triglycerides: ??<150 mg/dL Borderline high: ??150-199 mg/dL High: ??200-499 mg/dL Very high: ??>yb=211 mg/dL ASHLEE 2001; 285(19):8044-4482 HDL 79 >=40 mg/dL CERNER MILLENNIUM Comment: Reference range: ??Low HDL: ?? < 40 mg/dL ??Normal: ?40-60 mg/dL ??Desirable: > 60 mg/dL ASHLEE 2001; 285(19):4303-2069 LDL Cholesterol 108 (H) <=99 mg/dL KAVON CLIFFORD NIUM Comment: Reference range: ?? Optimal: ?<100 mg/dL ?? Near Optimal/Above Optimal: ?? 100-1 29 mg/dL ?? Borderline high: ?130-159 mg/dL ?? High: ? 160-189 mg/dL ?? Very high: ?>rc=508 mg/dL ASHLEE 2001: 285(19):0153-4024 Chol/HDL Ratio 2.5 ratio CERNER MILLENNI UM Comment: A Cholesterol to HDL ratio below 4:1 is desirable. ??Studies suggest that increased CAD risk occurs at ratios abov e 5 for females and above 6 for men. ? [place] [employer] Association ??(htt p://www.americanheart.org) ? Gillian Int Med, 1994; 121:641 ? AM J Med, 1998; 105(1A):48S Specimen Anatomical Collection Method Collection Time Receive d Time (Source) Location / / Volume Laterality Blood specimen 12/07/2012 6:24 AM 013 6:33 (specimen) EST AM EST Resulting Agency Comment Spec In Lab Ternt Polo MD CHEMISTRY ORDERABLES Performing Organization Address [facility] e Number [address] CERNER MILLENNIUM (ABNORMAL) APTT (12/07/2012 6:24 AM EST) athologist Signature PTT 36 (H) 25 - 35 sec CERNER MILLENNIUM Comment: Recommended therapeutic PTT range for fu ll dose unfractionated heparin is 80-114 seconds. Specimen Anatomical Collection Method Collection Time Receive d Time (Source) Location / / Volume Laterality Blood specimen 12/07/2012 6:24 AM 013 6:33 (specimen) EST AM EST Resulting Agency Comment Spec In Lab Trent Polo MD HEMATOLOGY ORDERABLES Performing Organization Address [facility] e Number [address] CERNER MILLENNIUM (ABNORMAL) Cardiac Enzymes (12/07/2012 6:24 AM EST) athologist Signature Troponin-T <0.03 <=0.03 LEDYNER ng/mL [facility] Comment: 0.03 ng/mL: Represents the 99th percenti le upper reference limit for normals. >0.03 ng/mL: Elevated cardiac troponin T level indicative of myocardial damage. Diagnosis of acute, evolving or recent M I requires a typical rise and gradual fall of cTnT with at least ONE of the fo llowing: a) Ischemic symptoms b) Development of pathologic Q waves on the ECG c) ECG changes indicative of eschemia (S -T segment elevation/depression) d) Coronary artery intervention Serial bloods should be obtained for wendy ting on admission, at 6 to 9 hrs and again at 12 to 24 hrs if earlier samples are negative and the clinical index of suspicion is high. Reference: [Myocardial infarction redefined a consensus document of the Joint [place] Society of Cardiology/[place] College [employer] Cardiology Committee for the redefinition of myocardial infarction. Journal of the [place] College of Cardi ology 2000; 36: 959-969] CK, Total 192 (H) 0 - 160 unit/L [facility] [employer] Specimen Anatomical Collection Method Collection Time Receive d Time (Source) Location / / Volume Laterality Blood specimen 12/07/2012 6:24 AM 013 6:33 (specimen) EST AM EST Resulting Agency Comment Spec In Lab Trent Polo MD CHEMISTRY ORDERABLES Performing Organization Address City/State/ZIP [place] [address] [facility] EKG 12 Lead (12/07/2012 3:21 AM EST) Component Value Ref Range Test Analysis Performed Pathologis t Method Time At Signature Ventricular rate 58 BPM MUSE SYSTEM Atrial Rate 58 BPM MUSE SYSTEM P-R Interval 144 ms MUSE SYSTEM QRS Duration 98 ms MUSE SYSTEM Q-T Interval 492 ms MUSE SYSTEM QTC Calculated 482 ms MUSE SYSTEM (Bezet) Calculated P [place] 59 degrees MUSE SYSTEM Calculated R [place] -29 degrees MUSE SYSTEM Calculated T [place] -57 degrees MUSE SYSTEM INTERPRETATION Sinus bradycardia MUSE SY STEM Moderate voltage criteria for LVH, may be normal variant ST & T wave abnormality, consider anterolateral ischemia Prolonged QT Abnormal ECG When compared with ECG of 07-DEC-2012 00:16, (unconfirmed) T wave inversion more evident in Anterolateral leads Conside r Ischemia I personally reviewed the tracing and edited the fellows int erpretation Confirmed by fellow Matt Curry MD ([id number]) on 12/07/2012 8:33 :42 AM Confirmed by MD Lopez Robert ([id number]) on 12/07/2012 10:31:18 AM Specimen Anatomical Collection Method Collection Time Receive d Time (Source) Location / / Volume Laterality 12/07/2012 3:21 AM 3 EST 10:31 AM EST Trent Polo MD ECG ORDERABLES Performing Organization Address City/State/ZIP Code Phon e Number MUSE SYSTEM (ABNORMAL) Differential, Automated (12/07/2012 12:18 AM EST) [facility] Method Time Signature Neutrophils % 78.1 (H) 34.0 - CERNER 71.0 % MILLENNIUM Neutr Abs (ANC) 8.73 (H) 1.50 - CERNER 6.30 MILLENNIUM x10(3)/mc L Lymphocytes % 16.7 (L) 19.0 - CERNER 53.0 % MILLENNIUM Lymphocytes Abs 1.9 1.0 - 3.6 CERNER x10(3)/mc MILLENNIUM L Monocytes % 3.8 (L) 4.0 - CERNER 13.0 % MILLENNIUM Monocyte Abs 0.4 0.2 - 1.0 CERNER x10(3)/mc MILLENNIUM L Eosinophils % 0.4 0.0 - 7.0 CERNER % MILLENNIUM Eosinophils Abs 0.0 0.0 - 0.5 CERNER x10(3)/mc MILLENNIUM L Basophils % 0.8 0.0 - 2.0 CERNER % MILLENNIUM Basophils Abs 0.1 0.0 - 0.2 CERNER x10(3)/mc MILLENNIUM L Immature Gran % 0.20 0.00 - CERNER 0.66 % MILLENNIUM Comment: Immature granulocytes(IG's)percentage an d absolute count will include metamyelocytes, myelocytes, and promyelo cytes. Blood smears from CBCs yielding IG's will be scanned manually for concor dance. If this scan disagrees with the automated IG or if promyelocytes are not ed, a manual differential will be performed. Aury Gran Abs 0.02 0.00 - 0.05 x10(3)/mcL CER NER MILLENNIUM Specimen Anatomical Collection Method Collection Time Receive d Time (Source) Location / / Volume Laterality Blood specimen 12/07/2012 12:18 3 (specimen) AM EST 12:25 AM EST Trent Polo MD HEMATOLOGY ORDERABLES Performing Organization Address City/State/ZIP [place] [address] CERNER MILLENNIUM Hemoglobin A1c (12/07/2012 12:18 AM EST) [facility] Method Time Signature Hemoglobin A1C 5.7 4.3 - 6.1 CERNER % MILLENNIUM Est Avg Gluc See note mg/dL CERNER MILLENNIUM Comment: Estimated Average Glucose not appropriat e for patients over 70 years of age. eAG equivalents for HbA1c percentages: HbA1c(%) ?eAG(mg/dL) 6.0 ?126 6.5 ?140 7.0 ?154 7.5 ?169 8.0 ?183 8.5 ?197 9.0 ?212 9.5 ?226 10.0 ? 240 Limitations: The eAG calculation has not been validated on women, individuals below 18 years old and above 70 years old, and individuals with hemoglobinopathies. Additional resources are available on [facility] ADA website: ??http://professional.diabetes.org/gluc osecalculator.aspx Reference: Kermit WEISS, Tawny J, Sherri R, et al. ??Tr anslating the A1C assay into estimated average glucose values. ??Diabetes Care 2008:31(8):3296-0491. Specimen Anatomical Collection Method Collection Time Receive d Time (Source) Location / / Volume Laterality Blood specimen 12/07/2012 12:18 3 (specimen) AM EST 12:25 AM EST Resulting Agency Comment Spec In Lab Trent Polo MD CHEMISTRY ORDERABLES Performing Organization Address City/State/ZIP [place] [address] KAVON PECKENNIUM (ABNORMAL) Cardiac Enzymes (12/07/2012 12:18 AM EST) P athologist Signature Troponin-T <0.03 <=0.03 CERNER ng/mL MILLENNIUM Comment: 0.03 ng/mL: Represents the 99th percenti le upper reference limit for normals. >0.03 ng/mL: Elevated cardiac troponin T level indicative of myocardial damage. Diagnosis of acute, evolving or recent M I requires a typical rise and gradual fall of cTnT with at least ONE of the fo llowing: a) Ischemic symptoms b) Development of pathologic Q waves on the ECG c) ECG changes indicative of eschemia (S -T segment elevation/depression) d) Coronary artery intervention Serial bloods should be obtained for wendy ting on admission, at 6 to 9 hrs and again at 12 to 24 hrs if earlier samples are negative and the clinical index of suspicion is high. Reference: [Myocardial infarction redefined a consensus document of the Joint [place] Society of Cardiology/[place] College [employer] Cardiology Committee for the redefinition of myocardial infarction. Journal of the [place] College of Cardi ology 2000; 36: 959-969] CK, Total 301 (H) 0 - 160 unit/L CERNER MILLENNI UM Specimen Anatomical Collection Method Collection Time Receive d Time (Source) Location / / Volume Laterality Blood specimen 12/07/2012 12:18 3 (specimen) AM EST 12:25 AM EST Resulting Agency Comment Spec In Lab Trent Polo MD CHEMISTRY ORDERABLES Performing Organization Address City/State/ZIP Code Phon e Number [address] CERNER MILLENNIUM Magnesium (12/07/2012 12:18 AM EST) P athologist Signature Magnesium 0.86 0.69 - 1.07 CERNER mmol/L MILLENNIUM Specimen Anatomical Collection Method Collection Time Receive d Time (Source) Location / / Volume Laterality Blood specimen 12/07/2012 12:18 3 (specimen) AM EST 12:25 AM EST Resulting Agency Comment Spec In Lab Trent Polo MD CHEMISTRY ORDERABLES Performing Organization Address City/[facility]/ZIP [facility] [place] Phon e Number [address] CERNER MILLENNIUM (ABNORMAL) APTT (12/07/2012 12:18 AM EST) P athologist Signature PTT 36 (H) 25 - 35 sec CERNER MILLENNIUM Comment: Recommended therapeutic PTT range for fu ll dose unfractionated heparin is 80-114 seconds. Specimen Anatomical Collection Method Collection Time Receive d Time (Source) Location / / Volume Laterality Blood specimen 12/07/2012 12:18 3 (specimen) AM EST 12:25 AM EST Resulting Agency Comment Spec In Lab Trent Polo MD HEMATOLOGY ORDERABLES Performing Organization Address [facility] Phon e Number [address] CERNER MILLENNIUM Prothrombin Time (12/07/2012 12:18 AM EST) athologist Signature PT 12.8 11.9 - 14.7 CERNER sec MILLENNIUM Comment: [facility] Transfusion Committee Guidelines: I NR less than 2.0, PTT less than OR equal to 43.5 seconds, or Fibrinogen gre ater than or equal to 100 mg/dl indicate adequate procoagulant activity for hemostasis in patients without underlying bleeding disorders. INR 1.0 0.9 - 1.1 CERNER ZadbyENNIUM Specimen Anatomical Collection Method Collection Time Receive d Time (Source) Location / / Volume Laterality Blood specimen 12/07/2012 12:18 3 (specimen) AM EST 12:25 AM EST Resulting Agency Comment Spec In Lab Trent Polo MD HEMATOLOGY ORDERABLES Performing Organization Address [facility] Phon e Number [address] CERNER MILLENNIUM Comprehensive metabolic panel (non-fasting) (12/07/2012 12:18 AM EST) athologist Signature Glucose Lvl 125 60 - 199 CERNER mg/dL [facility] Comment: Diabetes: >=200 mg/dL plus symp toms BUN 14 8 - 18 mg/dL CERNER MILLENNIUM Creatinine 0.74 0.70 - 1.20 mg/dL CERNER MILL ENNIUM Comment: Please note that the pediatric reference intervals supplied above were not validated at [facility]. Results from pediatri c patients should be interpreted in conjunction to the patient's age, height and muscle mass. Sodium 141 135 - 145 mmol/L CERNER CLIFFORD NIUM Potassium 3.6 3.5 - 5.0 mmol/L CERNER CLIFFORD NIUM Comment: Please note: ??Patients with WBC >100,00 0 may have falsely elevated Potassium levels. ??For accurate Potassium quantif ication in these patients send serum separator tube (gold top) for subsequent determinations. ??Contact the Clinical Chemistry Laboratory if there are any qu estions. Chloride 106 98 - 107 mmol/L CERNER MILLENN IUM CO2 24 22 - 31 mmol/L CERNER MILLENNI UM Anion Gap 11 5 - 15 mmol/L CERNER MILLENNIU M Calcium 8.7 8.5 - 10.5 mg/dL CERNER CLIFFORD NIUM Total Protein 6.8 6.4 - 8.3 gm/dL CERNER MIL LENNIUM Albumin 4.3 3.2 - 5.2 gm/dL CERNER MILLENN IUM AST 19 0 - 30 unit/L CERNER MILLENNIU M ALT 15 0 - 30 unit/L CERNER MILLENNIU M Alk Phos 83 40 - 104 unit/L CERNER MILLENN IUM Total Bilirubin 0.2 0.2 - 1.3 mg/dL CERNER M ILLENNIUM Bili, Direct 0.1 0.0 - 0.3 mg/dL CERNER MILL ENNIUM Estimated GFR >60 >=60 CERNER MILLENNIU M Comment: The National Kidney Disease Education Pr ogram (NKDEP) has recommended all laboratories report estimated GFR (eGFR) along with plasma creatinine measurements to assist you with recognit ion of early kidney disease. Caveats: ??Plasma creatinine should be a t steady-state (unchanged within the past week). For patient s multiply eGFR by 1.2. The MDRD equation was developed using patients be tween the ages of 18 and 70 years. ?? The MDRD equation has not been validated for patients < 18 years of age and should not be used to assess renal function in the pediatric population. ??The MDRD eGFR equation will also overestimate the true GFR of patients above the age of 70. ??This overestimation is variable bu t increases with age. At present, NKDEP does NOT recommend usi ng the MDRD equation for drug dosing purposes and pharmacists should continue to use their current dosing methods. In addition, numerical eGFR values great er than 60 ml/min/1.73 square meters should be treated as > 60, and not an ex act number due to greater inaccuracies at these higher values. Per NKDEP, they classify normal renal function as any GFR >60ml/min/1.73 square meters; chronic kidney disease wh en GFR <60, and renal failure when GFR <15. ??This calculation may not be valid for patients with atypical muscle mass (very lean or obese), acute renal failur e, and in patients with diabetic kidney disease. References: http://nkdep.nih.gov/resources/NKDEP_Sug gestn4Labs_0606_508.pdf http://www.kidney.org/professionals/kls/ pdf/faq_gfr.pdf Yuko K, Andrew NA, Korin AK, Ravinder TS, Carla AD, Sd CANDIDA. Relative performance of the MDRD and CKD-EPI equa tions for estimating glomerular filtration rate among patients with vari ed clinical presentations. Clin J Am Soc Nephrol;6:1963-72. Specimen Anatomical Collection Method Collection Time Receive d Time (Source) Location / / Volume Laterality Blood specimen 12/07/2012 12:18 3 (specimen) AM EST 12:25 AM EST Resulting Agency Comment Spec In Lab Trent Polo MD CHEMISTRY ORDERABLES Performing Organization Address City/State/ZIP Code Phon e Number [place] [phone] CERNER [facility] (ABNORMAL) CBC (with Diff) (12/07/2012 12:18 AM EST) P athologist Signature WBC 11.2 (H) 4.0 - 10.0 CERNER x10(3)/mcL [facility] RBC 4.98 3.93 - CERNER 5.22 [facility] x10(6)/mcL Hemoglobin 14.6 11.2 - CERNER 15.7 gm/dL [facility] Hematocrit 42.9 34.0 - CERNER 45.0 % [facility] MCV 86.1 79.0 - CERNER 94.0 fL [facility] MCH 29.3 26.6 - CERNER 32.2 pg [facility] MCHC 34.0 32.0 - CERNER 36.5 gm/dL [facility] Platelets 231 145 - 370 CERNER x10(3)/mcL [facility] RDWSD 42.9 35.0 - CERNER 46.0 fL [facility] RDWCV 13.7 10.9 - CERNER 14.4 % [facility] MPV 12.0 9.0 - 12.0 CERNER [facility] Specimen Anatomical Collection Method Collection Time Receive d Time (Source) Location / / Volume Laterality Blood specimen 12/07/2012 12:18 3 (specimen) AM EST 12:25 AM EST Resulting Agency Comment Spec In Lab Trent Polo MD HEMATOLOGY ORDERABLES Performing Organization Address City/State/ZIP [place] [address] [facility] EKG 12 Lead (12/07/2012 12:16 AM EST) Component Value Ref Range Test Analysis Performed Pathologis t Method Time At Signature Ventricular rate 59 BPM MUSE SYSTEM Atrial Rate 59 BPM MUSE SYSTEM P-R Interval 148 ms MUSE SYSTEM QRS Duration 104 ms MUSE SYSTEM Q-T Interval 498 ms MUSE SYSTEM QTC Calculated 493 ms MUSE SYSTEM (Bezet) Calculated P Cic[place] 57 degrees MUSE SYSTEM Calculated R Cic[place] -23 degrees MUSE SYSTEM Calculated T Cic[place] 87 degrees MUSE SYSTEM INTERPRETATION Sinus bradycardia MUSE SY STEM Possible Left atrial enlargement Moderate voltage criteria for LVH, may be normal variant T wave abnormality, consider lateral ischemia Nonspecific T wave abnormality Anterior leads Prolonged QT Abnormal ECG No previous ECGs available I personally reviewed the tracing and edited the fellows int erpretation Confirmed by fellow Antoinette SHELTON, Matt ([id number]) on 12/07/2012 8:18 :35 AM Confirmed by MD John, Salomon ([id number]) on 12/07/2012 10:26:47 AM Specimen Anatomical Collection Method Collection Time Receive d Time (Source) Location / / Volume Laterality 12/07/2012 12:16 12/07/2012 AM EST 10:26 AM EST Star Villalobos MD ECG ORDERABLES Performing Organization Address City/State/ZIP Code Phon e Number MUSE SYSTEM documented in this encounter Visit Diagnoses Diagnosis NSTEMI (non-ST elevated myocardial infar ction) - Primary Acute myocardial infarction, subendocard ial infarction, episode of care unspecified Chest pain Chest pain, unspecified HTN (hypertension) Unspecified essential hypertension documented in this encounter Administered Medications Inactive Administered Medications - up to 3 most recent administrations Medication Order MAR Action Action Date Dose Rate Site aspirin tablet 325 mg Given 12/07/2012 9:00 AM EST 325 mg 325 mg, Oral, DAILY, First dose on Fri12/07/12 at 0900, Until Discontinued, Routine diaZEPam (VALIUM) tablet 5 mg Given 12/07/2012 4:15 AM EST 5 mg 5 mg, Oral, ONCE, 1 dose, On Fri12/07/12 at 0415, Cath (Day of Procedure), Routine heparin 25,000 units in Rate/Dose Change 12/07/2012 7:02 950 Units/hr 19 mL/hr dextrose 5% 500 mL infusion AM EST 350-7,000 Units/hr (rounded to 7-140 mL/hr), Intravenous, CONTINUOUS, Starting on Fri12/07/12 at 0030, Until Fri12/07/12 at 2017, Patient Weight 60-64 kg Initial dose - 750 units/hr = 15 mL/hr PTT less than 60 sec - increase by 250 units/hr = 5 mL/hr PTT 60-79 sec- increase by 100 units/hr = 2 mL/hr PTT 80-114 sec - no change PTT 115-129 sec - decrease by 50 units/hr = 1 mL/hr PTT 130-145 sec - stop infusion for 30 min then decrease by 100 units/hr = 2 mL/hr PTT greater than 145 sec - stop infusion for 60 min then decrease by 200 units/hr = 4 mL/hr PTT greater than 145 sec X 2 - call roundhouse supervisor See Bolus dosing guidance for aPTT values less than 80 seconds under PRN medications, Routine New Bag 12/07/2012 12:30 AM EST 700 Units/hr 14 mL/hr hydrochlorothiazide (HYDRODIURIL) tablet 25 mg Given 12/07/2012 9:00 AM EST 25 mg 25 mg, Oral, DAILY, First dose on Fri12/07/12 at 0900, Until Discontinued, Routine lisinopril (PRINIVIL;ZESTRIL) tablet 40 mg Given 12/07/2012 9:00 AM EST 40 mg 40 mg, Oral, DAILY, First dose on Fri12/07/12 at 0900, Until Discontinued, Routine metoprolol tartrate (LOPRESSOR) tablet 2 5 mg Given 12/07/2012 9:00 AM EST 25 mg 25 mg, Oral, EVERY 12 HOURS SCHEDULED (2 times per day), First dose on Fri12/07/12 at 0145, Until Discontinued, Routine Given 12/07/2012 1:45 AM EST 25 mg potassium chloride (K-DUR/KLOR-CON) extended Given 10:15 AM EST 40 mEq release tablet 40 mEq 40 mEq, Oral, ONCE, 1 dose, On Fri12/07/12 at 1015, STAT sodium chloride 0.9 % flush 5 mL Given 12/07/2012 1:45 PM EST 5 mLs 5 mL, Intravenous, EVERY 12 HOURS, First dose on Fri12/07/12 at 0145, Until Discontinued Given 12/07/2012 1:45 AM EST 5 mLs sodium chloride 0.9 % flush 5 mL Given 12/07/2012 1:45 PM EST 5 mLs 5 mL, Intravenous, EVERY 12 HOURS, First dose on Fri12/07/12 at 0145, Until Discontinued Given 12/07/2012 1:45 AM EST 5 mLs sodium chloride 0.9 % flush 5 mL Given 12/07/2012 4:15 AM EST 5 mLs 5 mL, Intravenous, EVERY 12 HOURS, First dose on Fri12/07/12 at 0415, Until Discontinued, Day of Surgery (Day of Procedure) sodium chloride 0.9% infusion New Bag 12/07/2012 3:48 AM EST 1,000 mLs 100 mL/hr 1,000 mL, at 100 mL/hr, Intravenous, CONTINUOUS, Starting on Fri12/07/12 at 0145, Until Fri12/07/12 at 1218 sodium chloride 0.9% infusion New Bag 12/07/2012 12:45 PM EST 150 mL/hr 150 mL/hr 150 mL/hr, Intravenous, CONTINUOUS, Starting on Fri12/07/12 at 1245, Until Fri12/07/12 at 2017 documented in this encounter Active and Recently Administered Medications Times are shown in EST. Scheduled Medication Order 12/05/2012 12/06/2012 12/07/2012 aspirin tablet 325 mg (CANCELED) 0900 (Given - Provider: Maged Newell RN) 325 mg, Oral, DAILY, First dose on Fri at 0900, Until Discontinued, Routine diaZEPam (VALIUM) tablet 5 mg (COMPLETED) 0415 (Given - Provider: Maged Newell RN) 5 mg, Oral, ONCE, 1 dose, Fri12/07/12 at 0415, Cath (D ay of Procedure), Routine hydrochlorothiazide (HYDRODIURIL) tablet 25 mg (CANCELED) 0900 (Given - Provider: Maged Newell RN) 25 mg, Oral, DAILY, First dose on Fri at 0900, Until Discontinued, Routine lisinopril (PRINIVIL;ZESTRIL) tablet 40 mg (CANCELED) 0900 (Given - Provider: Maged Newell RN) 40 mg, Oral, DAILY, First dose on Fri at 0900, Until Discontinued, Routine metoprolol tartrate (LOPRESSOR) tablet 25 mg (CANCELED) 0145 (Given - Provider: Saman Martins RN)0900 (Given - Provider: Maged Newell RN) 25 mg, Oral, EVERY 12 HOURS SCHEDULED (2 times per day), First dose on Fri12/07/12 at 0145, Until Discontinued, Routine potassium chloride (K-DUR/KLOR-CON) extended release tablet 40 mEq (COMPLETED) 1015 (Given - Provider: Maged Newell RN) 40 mEq, Oral, ONCE, 1 dose, Fri12/07/12 at 1015, STAT sodium chloride 0.9 % flush 5 mL (CANCELED) 0145 (Given - Provider: Saman aMrtins RN)1345 (Given - Provider: Maged Newell RN) 5 mL, Intravenous, EVERY 12 HOURS, First dose on Fri12/07/12 at 0145, Until Discontinued, Routine sodium chloride 0.9 % flush 5 mL (CANCELED) 0145 (Given - Provider: Saman Martins RN)1345 (Given - Provider: Maged Newell RN) 5 mL, Intravenous, EVERY 12 HOURS, First dose on Fri12/07/12 at 0145, Until Discontinued, Routine sodium chloride 0.9 % flush 5 mL (CANCELED) 0415 (Given - Provider: Saman Martins RN) 5 mL, Intravenous, EVERY 12 HOURS, First dose on Fri12/07/12 at 0415, Until Discontinued, Day of Surgery (Day of Procedure), Routine Continuous Medication Order 12/05/2012 12/06/2012 12/07/2012 heparin 25,000 units in dextrose 5% 500 mL infusion (CANCELED) 0030 (New Bag - Provider: Saman Martins, PATEL)0702 (Rate/Dose Change - Provider: Saman Martins RN) 350-7,000 Units/hr = 7-140 mL/hr, Intrav enous, at 7-140 mL/hr, CONTINUOUS, Starting 12/07/12 at 0030, Until Fri12/07/12 at 2017, Patient Weight 60-64 kg Initial dose - 750 units/hr = 15 mL/hr PTT le ss than 60 sec - increase by 250 units/h r = 5 mL/hr PTT 60-79 sec- increase by 100 units/hr = 2 mL/hr PTT 80-114 sec - no change PTT 115-129 sec - decrease by 50 units/hr = 1 mL/hr PTT 130-145 sec - sto p infusion for 30 min then decrease by 1 00 units/hr = 2 mL/hr PTT greater than 145 sec - stop infusion for 60 min then decrease by 200 units/hr = 4 mL/hr PTT greater than 145 sec X 2 - call house office r See Bolus dosing guidance for aPTT values less than 80 seconds under PRN medications, Routine sodium chloride 0.9% infusion (CANCELED) 0348 (New Bag - Provider: Saman Martins RN) 1,000 mL, at 100 mL/hr, Intravenous, CON TINUOUS, Starting Fri12/07/12 at 0145, Until Fri12/07/12 at 1218 sodium chloride 0.9% infusion (CANCELED) 1245 (New Bag - Provider: Rossy Plummer RN) 150 mL/hr, at 150 mL/hr, Intravenous, CO NTINUOUS, Starting Fri12/07/12 at 1245, Until Fri12/07/12 at 2017 PRN Medication Order 12/05/2012 12/06/2012 12/07/2012 iohexol (OMNIPAQUE) 350 mg iodine/mL injection (CANCELED) 1216 (Given - Provider: Miky Aguilar MD) ONCE PRN, Starting Fri12/07/12 at 1216, Until Fri12/07/12 at 1216, Per Protocol, Cath (Intra-Procedure), Routine lidocaine (XYLOCAINE) 10 mg/mL (1 %) injection (CANCELED) 1155 (Given - Provider: Miky Aguilar MD) ONCE PRN, Starting 12/07/12 at 1155, Until Fri12/07/12 at 1216, Cath (Intra- Procedure), Routine documented in this encounter Care Teams Professor Of Radiology Relationship Specialty Start Date End Date Karli Aguayo MD PCP - General 09/04/10 02/24/19 [address] [place] [address] documented as of this encounter
--- OUTSIDE RECORDS SUMMARY | 2022-05-17 01:01 | XMS_ITS | Encounter Summary ---
:1940 Author Organization [facility] [place] [address] Care Team Providers Name Role Phone Karli Aguayo MD Primary Care Provider Encounter Details Date Type Department Care Team Description 08/20/2012 Office [place] [address] Social History Tobacco Use Types Packs/Day Years Used Date Never Smoker Sex Assigned at Date Recorded Not on file documented as of this encounter Plan of Treatment Not on filedocumented as of this encounter Visit Diagnoses Not on filedocumented in this encounter Care Teams Leather Carver Relationship Specialty Start Date End Date Karli Aguayo MD PCP - General 09/04/10 02/24/19 [address] [place] [address] documented as of this encounter
--- OUTSIDE RECORDS SUMMARY | 2022-05-17 01:01 | XMS_ITS | Encounter Summary ---
:1940 Author Organization [facility] [place] [address] Care Team Providers Name Role Phone Karli Aguayo MD Primary Care Provider Reason for Visit Reason Comments Suture / Staple Removal Encounter Details Date Type Department Care Team Description 02/06/2017 Office Visit Dermatology at [facility], Visit f or suture Ollie SHELTON removal [address] [facility] [place] B DERMATOLOGY [place], [place] [id number] [phone] Social History Tobacco Use Types Packs/Day Years Used Date Never Smoker Alcohol Use Standard Drinks/Week Comments No 0 (1 standard drink = 0.6 oz pure alcoho l) Sex Assigned at Date Recorded Not on file documented as of this encounter Progress Notes [facility] MD - 02/06/2017 11:15 AM EDT PROBLEM: Followup for suture removal and biopsy results. 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 Physical examination shows excellent healing of the biopsy site. The central area which is being allowed to heal by secondary intention already has largely filled in. There is minimal erythema, no signs of any infection. 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 a. Sutures removed. b. May discontinue wound care instructions. c. Recommend I see her again now in 6 months for repeat check. Thereafter would recommend at least once yearly visits. CC: Karli Aguayo MD documented in this encounter Plan of Treatment Not on filedocumented as of this encounter Visit Diagnoses Diagnosis Visit for suture removal Encounter for removal of sutures documented in this encounter Care Teams Employee Communications Specialist Relationship Specialty Start Date End Date Karli Aguayo MD PCP - General 09/04/10 02/24/19 [address] [place] [address] documented as of this encounter
--- OUTSIDE RECORDS SUMMARY | 2022-05-17 01:01 | XMS_ITS | Encounter Summary ---
:1940 Author Organization [facility] [place] [address] Care Team Providers Name Role Phone Karli Aguayo MD Primary Care Provider Reason for Visit Reason Comments Skin Check Encounter Details Date Type Department Care Team Description 07/10/2011 Office Visit Dermatology [facility], History of basal cell [address] [facility] MD carcinoma (Primary [address] Dx) [place], [place] DERMATOLOGY [address] [place] [address] [phone] (Wo rk) Social History Tobacco Use Types Packs/Day Years Used Date Never Smoker Sex Assigned at Date Recorded Not on file documented as of this encounter Progress Notes [facility] MD - 07/10/2011 10:14 AM EDT Problems: 1. Skin checkup. 2. History of numerous nonmelanoma cutaneous malignancies. 3. Status post PDT therapy per Dr. Munguia, 08/2010. 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 Aguayo for a general skin checkup. She was previously followed at [facility] and as noted above underwent a first PDT treatment session with Dr. Munguia in August of last year. However she had a fairly significant reaction and slow healing time afterwards and decided to hold off on a second planned session six weeks after the first. Physical examination reveals a pleasant 71-year-old woman who has diffuse solar damage, numerous solar lentigos and ephelides. Careful examination of the head, neck, chest, back, hands, arms, forearms, thighs, calves and feet is otherwise benign. She has well healed C & D treatment sites and excision sites where she has had her previous BCCa(s) (see accompanying summary sheet), but no evidence of any new lesions of concern. Assessment & Plan: History of nonmelanoma cutaneous malignancies. a. Patient reassured about benign examination today. b. Recommended that we continue to follow her closely for potential development of skin cancer. c. RTC in two years for repeat check return sooner for any new lesions of concern. d. Will hold off now on further PDT therapies. Cc: Karli Aguayo MD RTC REMINDER Two Years documented in this encounter Plan of Treatment Not on filedocumented as of this encounter Visit Diagnoses Diagnosis History of basal cell carcinoma - Primar y Personal history of other malignant neop lasm of skin documented in this encounter Care Teams Splicing Machine Operator Automatic Relationship Specialty Start Date End Date Karli Aguayo MD PCP - General 09/04/10 02/24/19 [address] [place] [address] documented as of this encounter
--- OUTSIDE RECORDS SUMMARY | 2022-05-17 01:01 | XMS_ITS | Encounter Summary ---
:1940 Author Organization [facility] [place] [address] Care Team Providers Name Role Phone Karli Aguayo MD Primary Care Provider Reason for Visit Reason Onset Date Comments Laser Treatment 02/21/2012 PDT with Blue Light Encounter Details Date Type Department Care Team Description 02/21/2012 Telephone Dermatology Silvio Munguia Laser Treatment (PDT [facility] MD Gaurav with Blue Light) [place] [address] [facility] [place] [address] (Wo rk) Social History Tobacco Use Types Packs/Day Years Used Date Never Smoker Sex Assigned at Date Recorded Not on file documented as of this encounter Miscellaneous Notes Telephone Encounter - Felicity Martinez - 02/21/2012 10:13 AM EDT I left a message for Mey Menjivar to call me back to schedule an appointment. Dr. Munguia wouldlike her to have a PDT treatment in the fall. documented in this encounter Plan of Treatment Not on filedocumented as of this encounter Visit Diagnoses Not on filedocumented in this encounter Care Teams Nuisance Wildlife Control Operator Relationship Specialty Start Date End Date Karli Aguayo MD PCP - General 09/04/10 02/24/19 [address] [place] [id number] documented as of this encounter
--- OUTSIDE RECORDS SUMMARY | 2022-05-17 01:01 | XMS_ITS | Encounter Summary ---
:1940 Author Organization [facility] [place] [address] Care Team Providers Name Role Phone Karli Aguayo MD Primary Care Provider Encounter Details Date Type Department Care Team Description 12/06/2012 Telephone [place] [facility] Edward Gonzalez MD [facility] [place] [address] CARDIOLOGY DEPT [phone] [place] [id number] (Wo rk) Social History Tobacco Use Types Packs/Day Years Used Date Never Smoker Alcohol Use Standard Drinks/Week Comments No 0 (1 standard drink = 0.6 oz pure alcoho l) Sex Assigned at Date Recorded Not on file documented as of this encounter Miscellaneous Notes Telephone Encounter - Edward Gonzalez MD - 12/06/2012 9:35 PM EST Initial Contact Date: 12/06/12 Initial contact time: 21:30 Referring Provider: Dr Mazariegos Patient Location: [facility] Past Medical History: HTN Presenting Symptoms per OSH: Chest/abdominal discomfort after eating with diaphoresis and nausea Pertinent Diagnostic Findings: TnI 0.16 (ULN 0.06) BUN 19, Cr 0.8 K 3.8 Acute abd series negative UA negative Plan: - Pt given 325mg ASA, 300mg clopidogrel, heparin gtt and bolus prior to transfer - Transfer to [facility] for stress vs LHCath depending on ECG, labs, and clinical picture documented in this encounter Plan of Treatment Not on filedocumented as of this encounter Visit Diagnoses Not on filedocumented in this encounter Care Teams Er Physician Relationship Specialty Start Date End Date Karli Aguayo MD PCP - General 09/04/10 02/24/19 [address] [place] [address] documented as of this encounter
--- OUTSIDE RECORDS SUMMARY | 2022-05-17 01:01 | XMS_ITS | Encounter Summary ---
:1940 Author Organization [facility] [place] [address] Care Team Providers Name Role Phone Karli Aguayo MD Primary Care Provider Encounter Details Date Type Department Care Team Description 07/04/2013 Telephone Cardiology [place] [facility] Matti Patino MD [facility] [place] [address] CARDIOLOGY [phone] [place] [id number] (Wo rk) Social History Tobacco Use Types Packs/Day Years Used Date Never Smoker Alcohol Use Standard Drinks/Week Comments No 0 (1 standard drink = 0.6 oz pure alcoho l) Sex Assigned at Date Recorded Not on file documented as of this encounter Miscellaneous Notes Telephone Encounter - Matti Patino MD - 07/04/2013 11:37 AM EDT Initial Contact Date: 07/04/13 Initial contact time: 11:15am Referring Provider: Dr. Cherry Patient Location: [facility] Past Medical History: HTN Presenting Symptoms per OSH: Patient was seen at OSH in [facility] and per report needs a cholecystectomy. Dr. Cherry was inquiring as to her admission in November and the results of the catheterization. He stays that due to the recent technical difficulties he has not been able to view her documentation in regards to catheterization. I relayed the information stating that based on the discharge summary from Nov 2012 her catheterization showed normal coronaries. documented in this encounter Plan of Treatment Not on filedocumented as of this encounter Visit Diagnoses Not on filedocumented in this encounter Care Teams Reprographics Technician Relationship Specialty Start Date End Date Karli Aguayo MD PCP - General 09/04/10 02/24/19 [address] [place] [address] documented as of this encounter
--- OUTSIDE RECORDS SUMMARY | 2022-05-17 01:01 | XMS_ITS | Clinical Summary ---
:1940 Author Organization [facility] [place] [address] Care Team Providers Name Role Phone Marbella Serrato APRN Primary Care Provider [phone] Allergies Active Allergy Reactions Severity Noted Date Comments Bacitracin Anaphylaxis High 07/09/2011 Caffeine Propoxyphene Hcl Medications Medication Sig Dispensed Refills Start Date End Date Status DILTiazem (TIAZAC) 180 Take 180 mg by 0 Active mg 24 hr capsule mouth every morning. benazepril (LOTENSIN) Take 40 mg by 0 Active 40 mg tablet mouth daily. Active Problems Problem Noted Date Visit for suture removal 02/06/2017 Basal cell carcinoma 10/03/2016 NSTEMI (non-ST elevated myocardial infarction) 013 HTN (hypertension) 12/07/2012 AK (actinic keratosis) 08/20/2012 History of basal cell carcinoma 07/10/2011 BCC (basal cell carcinoma) 07/09/2011 Social History Tobacco Use Types Packs/Day Years Used Date Never Smoker Smokeless Tobacco: Never Used Alcohol Use Standard Drinks/Week Comments No 0 (1 standard drink = 0.6 oz pure alcoho l) Sex Assigned at Date Recorded Not on file Last Filed Vital Signs Vital Sign Reading [...] Mass Index 23.5 12/07/2012 12:01 AM EST Plan of Treatment Health Maintenance Due Date Last Done Comments Covid-19 Vaccine (#1) 1945 Pneumoccocal Vaccine: 65+ (1 - PCV) 01/22/1946 Hepatitis C Screening 01/22/1960 Tdap adult 1961 Tetanus vaccine 1961 Zoster vaccine (1 of 2) 01/22/1992 Advance Directive 1997 Bone Density Scan 2007 Influenza (Flu) vaccine (1 of 1 - Influenza standard 06/13/2022 series) Insurance Payer Benefit Plan / Subscriber ID Effective Phone Address T ype Group Dates MEDICARE MEDICARE PART A [id number] 2007-Prese [phone] [place] [address] AARP SUPPLEMENT AARP SUPPLEMENT [id number] 2015-[address]se [address] [place] [address] (Home) [phone] [place], [place] (Work) [phone] Advance Directives Latest Code Status on File Code Status Date Activated Date Inactivated Comments Full Code 12/07/2012 1:27 AM 12/07/2012 8:17 PM Order Status: Initial Order Does patient have decision making capacity? Yes, Order is based on Patients wishes. Care Teams It Solutions Architect Relationship Specialty Start Date End Date Marbella Serrato APRN PCP - General Family Medicine 02/25/19 [address] [place], [place] [id number]
--- OUTSIDE RECORDS SUMMARY | 2022-05-17 01:01 | XMS_ITS | Encounter Summary ---
:1940 Author Organization [facility] [place] [address] Care Team Providers Name Role Phone Karli Aguayo MD Primary Care Provider Reason for Visit Reason Comments Follow-up Excision Encounter Details Date Type Department Care Team Description 01/30/2017 Procedure visit Dermatology at [facility] Basa l cell carcinoma [place] [address] [facility] [address] [place], [place] DERMATOLOGY [address] [place], [place] [phone] [id number] Social History Tobacco Use Types Packs/Day Years Used Date Never Smoker Alcohol Use Standard Drinks/Week Comments No 0 (1 standard drink = 0.6 oz pure alcoho l) Sex Assigned at Date Recorded Not on file documented as of this encounter Progress Notes [facility] MD - 01/30/2017 9:30 AM EDT CLINICAL IMPRESSION: BCCA right medial canthus, recurrent after 09/2016 C and D. SIZE: 1.5 cm. DEEP SUTURE: 4-0 Vicryl. SURFACE SUTURE: 5-0 Ethilon. FOLLOWUP: In 1 week for suture removal and biopsy results. Indications for surgery, possible adverse outcomes, and activity restrictions discussed. Informed verbal consent was obtained. Skin surface was prepared with 4% chlorhexidine and draped in the usual sterile manner. Local anesthesia with 1% lidocaine, 1:100,000 epinephrine and 0.1 mEq per mL bicarbonate. Using a #15 blade and 3-mm margins, an elliptical incision was carried out around the 1.5-cm lesion. Undermining performed peripherally. Hemostasis with electrodesiccation. Layered closure performed, specimen to Pathology. Wound dressing, wound care reviewed. End length suture line was 3 cm. Note at the very center of the suture line there was too much tension to allow [id number] good apposition closure of the wound. This area will be allowed to granulate. Cc: Karli Aguayo MD documented in this encounter Plan of Treatment Not on filedocumented as of this encounter Visit Diagnoses Diagnosis Basal cell carcinoma Basal cell carcinoma of skin, site unspe cified documented in this encounter Care Teams Environmental Services Supervisor Relationship Specialty Start Date End Date Karli Aguayo MD PCP - General 09/04/10 02/24/19 [address] [place] [address] documented as of this encounter
--- OUTSIDE RECORDS SUMMARY | 2022-05-17 01:01 | XMS_ITS | Encounter Summary ---
:1940 Author Organization [facility] [place] [address] Care Team Providers Name Role Phone Karli Aguayo MD Primary Care Provider Encounter Details Date Type Department Care Team Description 10/15/2016 Telephone Dermatology at [facility] Char Burr LPN [address] [place] [address] Social History Tobacco Use Types Packs/Day Years Used Date Never Smoker Alcohol Use Standard Drinks/Week Comments No 0 (1 standard drink = 0.6 oz pure alcoho l) Sex Assigned at Date Recorded Not on file documented as of this encounter Miscellaneous Notes Telephone Encounter - Char Rivers LPN - 10/15/2016 2:[address] Guzmán recommendations: Continue cleaning with soap & water. Do not use Peroxide. Keep covered. Return call to patient. Reviewed Dr. Guzmán recommendations; Patient voiced she will stop the Peroxide and continue with soap/water. She will call if she has concerns. Telephone Encounter - Char Rivers LPN - 10/15/2016 1:17 PM EST Nurse reviewed biopsy results with patient; BCCA, no further treatment necessary, return to clinic 01/02/17 for repeat check. Patient voiced understanding. Patient voiced there is a clear drainage from wound. When she removes non-adhesive pad it has a yellowish stain. Currently cleaning with peroxide(forms a film on wound), applying Vaseline, and covers with non-adhesive dressing. Leaves open to air at times. Denies redness, pain, & fever. Nurse offered several times for patient to visit Dr. Lamb to assess. Patient voiced she didn't feel it was infected and a trip to the office would be unnecessary. She would like Dr. Lamb to review this information and nurse to call her back with recommendations ([phone]). Telephone Encounter - Char Rivers LPN - 10/15/2016 10:37 AM EST Attempted to contact patient to review biopsy results; BCCA, no further treatment necessary, return to clinic 01/02/17 for repeat check. Message left. documented in this encounter Plan of Treatment Not on filedocumented as of this encounter Visit Diagnoses Not on filedocumented in this encounter Care Teams Quantitative Analyst Developer Relationship Specialty Start Date End Date Karli Aguayo MD PCP - General 09/04/10 02/24/19 [address] [place] [address] documented as of this encounter
--- OUTSIDE RECORDS SUMMARY | 2022-05-17 01:01 | XMS_ITS | Encounter Summary ---
:1940 Author Organization [facility] [place] [address] Care Team Providers Name Role Phone Karli Aguayo MD Primary Care Provider Reason for Visit Reason Comments Follow-up Encounter Details Date Type Department Care Team Description 10/03/2016 Office Visit Dermatology at [facility] Basal c ell carcinoma [place] MD [address] [facility] [address] [facility] Rojelio B DERMATOLOGY [place], [place] [phone] Social History Tobacco Use Types Packs/Day Years Used Date Never Smoker Alcohol Use Standard Drinks/Week Comments No 0 (1 standard drink = 0.6 oz pure alcoho l) Sex Assigned at Date Recorded Not on file documented as of this encounter Progress Notes [facility] MD - 10/03/2016 10:45 AM EST PROBLEM: New lesion right medial canthus. Mey follows up after last being seen in 2010. She had a history of numerous nonmelanoma cutaneous malignancies and is status post PDT by Dr. Munguia 08/2010. She has noted for the last 2 years a slowly growing nodule in the right medial canthus. Physical examination reveals a BCCA probably of nodular type on the right medial canthus measuring 2.2 cm in length. A/P: BCCA right medial canthus. a. After obtaining informed patient consent, the site was anesthetized and removed with shave C and D. b. Triple antibiotic ointment and bandage placed. c. Wound care instructions and supplies given. d. Recommend I see her again in another 3 months for repeat check. cc: Karli Aguayo MD documented in this encounter Plan of Treatment Not on filedocumented as of this encounter Visit Diagnoses Diagnosis Basal cell carcinoma Basal cell carcinoma of skin, site unspe cified documented in this encounter Care Teams Bowling Alley Operator Relationship Specialty Start Date End Date Karli Aguayo MD PCP - General 09/04/10 02/24/19 [address] [place] [address] documented as of this encounter
--- OUTSIDE RECORDS SUMMARY | 2022-05-17 01:01 | XMS_ITS | Encounter Summary ---
:1940 Author Organization [facility] [place] [address] Care Team Providers Name Role Phone Karli Aguayo MD Primary Care Provider Reason for Visit Reason Comments Actinic Keratosis Encounter Details Date Type Department Care Team Description 08/20/2012 Office Visit Dermatology DERMATOLOGY, [place] (actinic keratosis) [facility] NURSE (Primary Dx) [place] [address] Social History Tobacco Use Types Packs/Day Years Used Date Never Smoker Sex Assigned at Date Recorded Not on file documented as of this encounter Patient Instructions Patient InstructionsCindi Kamara LPN - 08/20/2012 3:06 PM EST Written instructions reviewed and sent home with patient documented in this encounter Progress Notes Cindi Kamara LPN - 08/20/2012 2:47 PM EST Mey [id number] Chief Problem: 1. Actinic Keratoses (AK), Squamous Cell Carcinoma in-situ, Diffuse Actinic Damage 2. Photodynamic Therapy (PDT) 3. 2nd PDT treatment 4. Treatment area: face HISTORY & DISCUSSION: 72 y.o. year old female, here for PDT treatment of actinic keratosis and diffuse actinic damage. Willing to have treatment. Re-Discussed potential adverse events including pain, stinging and burning sensation, possible bruising, hyperpigmentation, edema, erosion or blister formation (uncommon). The patient knows that photodynamic therapy should be covered for AKs. PLAN: Photodynamic Therapy/Blue Light Activation 1. Patient to have PDT performed today, Verbal consent, expectations, and potential adverse events re-discussed. 2. face cleansed with Alcohol. 3. Aminolevulenic Acid applied to the face for 1 hour. 4. Blue Light activation to face for 10 minutes. Eye protection/eyeshields used during procedure. Marcus cooling used during procedure for patient comfort. 5. No immediate post-treatment complications. Patient discharged to home with written post treatmentinstructions and contact numbers. Encouraged to call with any concerns. Follow up: 1. To be scheduled PRN Cindi Kamara LPN documented in this encounter Plan of Treatment Scheduled Orders Name Type Priority Associated Diagnoses Order S chedule Dermatological Dermatology Routine AK (actinic Ordered: Photodynamic Therapy keratosis) 012 documented as of this encounter Visit Diagnoses Diagnosis AK (actinic keratosis) - Primary Actinic keratosis documented in this encounter Administered Medications Inactive Administered Medications - up to 3 most recent administrations Medication Order MAR Action Action Date Dose Rate Site Aminolevulinic Acid HCl 20 % Soln Given 08/20/2012 2:49 PM EST 1 each Topical (Top), ONCE, On Olinda 08/20/12 at 1515, 1 dose documented in this encounter Care Teams Rum Processing Operator Relationship Specialty Start Date End Date Karli Aguayo MD PCP - General 09/04/10 02/24/19 [address] [place] [address] documented as of this encounter
--- OUTSIDE RECORDS SUMMARY | 2022-05-17 01:01 | XMS_ITS | Encounter Summary ---
:1940 Author Organization [facility] [place] [address] Care Team Providers Name Role Phone RojelioMarbella APRN Primary Care Provider [phone] Reason for Visit Reason Comments Follow-up Skin Check Encounter Details Date Type Department Care Team Description 02/25/2019 Office Visit Dermatology at [facility], History of basal cell carcinoma; [place] (actinic keratosis) [address] [facility] Rojelio B DERMATOLOGY [place], [place] [phone] Social History Tobacco Use Types Packs/Day Years Used Date Never Smoker Smokeless Tobacco: Never Used Alcohol Use Standard Drinks/Week Comments No 0 (1 standard drink = 0.6 oz pure alcoho l) Sex Assigned at Date Recorded Not on file documented as of this encounter Progress Notes [facility] MD - 02/25/2019 10:30 AM EDT Problem: 1. Follow-up 1 year actinic check 2. History of BCCA right medial canthus recurrent after shave C&D September 2016, excised with clear margins January 2017 3. History of numerous nonmelanoma case malignancies 4. Status post PDT therapy by Dr. Munguia in August 2010 Mey follows today for a six-month check. The left mid nasal sidewall shave C&D site, a basalcell carcinoma, treated last visit has healed well. She is new lesion on the right medial cheek and some erythematous papules in the left dorsal forearm adjacent to a prior treatment site. Physical examination reveals a pleasant 79-year-old woman who has a pearly umbilicated papule on theright medial cheek concerning for BCCA. She has a string of 4 erythematous slightly keratotic macules along the periphery of the left mid dorsal forearm atrophic scar from an earlier procedure. She is a 1 cm somewhat atypically pigmented lesion just proximal to that which he states is unchanged is been present for a long time. We will monitor this. Otherwise careful examination of the back reveals just seborrheic keratoses examination of the rest of the face the neck the chest the hands the arms forearms is benign. Assessment and plan: Probable BCCA right medial cheek 1. After obtaining consent site was anesthetized and removed shave C&D x3 2.. Vaseline petroleum jelly and bandage was placed 3. Wound care instructions and supplies given 4. After curettage, site measured 6 mm in diameter History of numerous nonmelanoma cutaneous malignancies 1. No evidence of recurrence of previously treated sites. 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 Could consider light C&D of these 4 macules Atypically pigmented lesion left dorsal forearm 1. Site measured today 1 cm in length 2. We will continue to monitor. 3. Will biopsy of this if change occurs. CC: Karli lam MD documented in this encounter Plan of Treatment Not on filedocumented as of this encounter Visit Diagnoses Diagnosis History of basal cell carcinoma Personal history of other malignant neop lasm of skin [place] (actinic keratosis) Actinic keratosis documented in this encounter Care Teams Shake Feeder Relationship Specialty Start Date End Date Marbella Serrato APRN PCP - General Family Medicine 02/25/19 [address] [place] [address] documented as of this encounter
--- OUTSIDE RECORDS SUMMARY | 2022-05-17 01:01 | XMS_ITS | Encounter Summary ---
:1940 Author Organization [facility] [place] [address] Care Team Providers Name Role Phone Karli Lam MD Primary Care Provider Reason for Visit Reason Comments Annual Exam Encounter Details Date Type Department Care Team Description 08/18/2018 Office Visit Dermatology at [facility], History of basal cell carcinoma; [place] (actinic keratosis) [address] [facility] Rojelio B DERMATOLOGY [place], [place] [phone] Social History Tobacco Use Types Packs/Day Years Used Date Never Smoker Smokeless Tobacco: Never Used Alcohol Use Standard Drinks/Week Comments No 0 (1 standard drink = 0.6 oz pure alcoho l) Sex Assigned at Date Recorded Not on file documented as of this encounter Progress Notes [facility] MD - 08/18/2018 10:30 AM EST Problem: 1. Follow-up 1 year actinic check 2. History of BCCA right medial canthus recurrent after shave C&D September 2016, excised with clear margins January 2017 3. History of numerous nonmelanoma case malignancies 4. Status post PDT therapy by Dr. Munguia in August 2010 Mey follows up and is here for repeat check. The right mid jawline lesion, the squamous cell carcinoma from last visit, it remains well-healed. Physical examination reveals a pleasant 78-year-old woman who unfortunately recently lost her . She has an umbilicated pearly 2 mm papule on the left nasal sidewall concerning for BCCA. There isno evidence of recurrent SCCA on the right mid jawline. She has an actinic keratosis on the right medial cheek at the base of the nasal sidewall, and one the left lateral eyebrow. She is some patchy erythema of the right dorsal forearm L into treatment site from from past actinic damage. Otherwise examination of the the face the neck the chest the back the hands informs is benign. Assessment and plan: Rule out BCCA left nasal sidewall 1. After obtaining informed consent site was anesthetized and removed shave C&D 2. After curettage site measured 5 mm diameter 3. Vaseline petroleum jelly and Band-Aid placed. Patient is antibiotic ointment allergic 4. Return to clinic in 6 months for repeat check. If doing well at that time will likely be able to resume our once yearly visits. Actinic keratoses facial 1. LN 2 x 2 applied to each of 2 sites CC: Karli lam MD documented in this encounter Plan of Treatment Not on filedocumented as of this encounter Visit Diagnoses Diagnosis History of basal cell carcinoma Personal history of other malignant neop lasm of skin [place] (actinic keratosis) Actinic keratosis documented in this encounter Care Teams Waiter/Waitress Tourist Class Relationship Specialty Start Date End Date Karli Lam MD PCP - General 09/04/10 02/24/19 [address] [place] [address] documented as of this encounter
--- OUTSIDE RECORDS SUMMARY | 2022-05-17 01:01 | XMS_ITS | Encounter Summary ---
:1940 Author Organization [facility] [place] [address] Care Team Providers Name Role Phone Karli Aguayo MD Primary Care Provider Encounter Details Date Type Department Care Team Description 12/07/2012 Surgery Mint Wafer Depositor Liliya Calderon MD CARDIAC CATHETERIZATION [facility] [address] [place] [address] [place] [id number] [phone] (Wo rk) Social History Tobacco Use Types Packs/Day Years Used Date Never Smoker Alcohol Use Standard Drinks/Week Comments No 0 (1 standard drink = 0.6 oz pure alcoho l) Sex Assigned at Date Recorded Not on file documented as of this encounter Last Filed Vital Signs Vital Sign Reading Time Taken Comments Blood Pressure 141/69 12/07/2012 12:45 PM EST Pulse 49 12/07/2012 12:45 PM EST Temperature 37 ??C (98.6 ??F) 12/07/2012 7:32 AM EST Respiratory Rate 9 12/07/2012 12:45 PM EST Oxygen Saturation 99% 12/07/2012 12:45 PM EST Inhaled Oxygen Concentration - - [...] appointments: During 8am-5pm Friday through Friday call [phone] to speak with a nurse in the cardiology clinic. All other times call [phone] and ask to speak to the waiter/waitress counter containers sales representative. Return to work: 48 hours. No lifting [...] patient discharge to home with . Maged Baeza RN - 12/07/2012 5:04 PM EST Patient off bedrest, right groin negative. Patient ambulated unit 320 feet, tolerated well. Maged Baeza RN - 12/07/2012 2:34 PM EST Patient arrived from cath recovery s/p diagnostic cath. Right groin negative. 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 Star Parson MD - 12/07/2012 9:20 AM EST Inpatient Cardiology Progress Note Patient Name: Mey Menjivar Service: SENIOR ANDROID SOFTWARE ENGINEER / PA Responsible Attending: Grazyna Villalobos MD Reason for continued hospitalization: Awaiting cardiac catherization Active Problems: Active Hospital Problems Diagnoses ??? NSTEMI (non-ST elevated myocardial infarction) Priority: High ??? HTN (hypertension) Priority: High Resolved Hospital Problems Diagnoses Date Resolved Interval History: Patient was admitted to [facility] for evaluation of cardiac disease. She will [...] with a PMH of HTN transferred from [place] because of new onset of epigastric pressure today at 7.15 PM when she just started eating. Cardiac enzymes were positive. She was pain free on arrival to [facility]. She was already given aspirin 324 mg, plavix 300 mg and started on a heparin bolus and drip per ACS protocol. Awaiting echocardiogram and cardiac catheterization. 1.NSTEMI: Admit to telemetry Troponin: < 0.03 x 2 at [facility] EKG shows NSR with T wave changes [...] is to send Mrs. Menjivar to the logging rafter laborer today to assess for the presence of significant coronary disease. Satr Villalobos MD Staff Scalloper Pager #[phone] Saman Martins RN - 12/07/2012 4:15 AM EST Patient oob [...] Patient Name: Mey Menjivar MRN No - [id number] Date of - 1940 Age - 72 y.o. Admission Date - 12/06/12 Inpatient Attending:Dr. Villalobos Chief Complain: abdominal pressure Active Problem List: Patient Active Problem List Diagnoses ??? AK (actinic keratosis) ??? History of basal cell carcinoma ??? BCC (basal cell carcinoma) Overview Note: HPI: 72 y/o woman with a PMH of HTN and no other significant cardiovascular history presented to [facility] onset of stomach pressure when she was [...] headache, dizziness. Her [place]. Her ECG showed NSR w/o St changes. She became nauseous at [place] ad threw up once. She was given [...] as IVF. She was transferred to the [facility] for further management On arrival to [facility] she was pain free. She denied for any complain. Past Medical History: HTN Past Surgical History: None Family History: Father - pacemaker Social History History Social History ??? Marital Status: Spouse Name: N/A Number of Children: N/A ??? 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 Smoking status: Never Smoker ??? Smokeless tobacco: Not on file ??? Alcohol Use: No ??? Drug Use: No ??? Sexually Active: No Other Topics Concern ??? Not on file Social History Narrative ??? No narrative on file Review of System 12 comprehensive review of system was negative except for GI - stomach pressure, nausea and vomiting at [place] [facility] - No CP, SOB, palpitations RS [...] with a PMH of HTN transferred from [place] because of new onset of epigastric pressure today at 7.15 PM when she just started eating. This is the first time she had this problem. She didn't have typical anginal symptoms. Her ECG was in NSR w/o ST changes. Her [place] labs were unremarkable except her cardiac enzymes were positive. She was pain free on arrival to [facility]. She was already given aspirin 324 mg, [...] clinical decision making Provider: Trent Graham Pager: [phone] documented in this encounter Procedure Notes Provider, Scanning - 12/08/2012 10:22 AM ESTAssociated Order(s): SCAN DOC: MIGRATION AGENT Provider, Scanning - 12/07/2012 12:30 PM ESTAssociated [...] with a PMH of HTN presented to [facility] for sudden onset of chest pressure as she was aboutto start her dinner at 19:15 last night. Today before starting her dinner she suddenly felt a pressure which was located in upper central stomach which quickly spread through out the stomach and mid-giselle rnum.This pain was sharp and was 10/10 initially. This lasted until she presented to the ED at [facility] and was given dilaudid. She denied for any radiation, any aggravating or relieving factors. She didn't have any SOB, palpitations, headache, dizziness. Her took her to the [place]. Her initial vitals were stable at [place]. Her ECG showed NSR w/o St changes. She became nauseous at [place] ad threw up once. She was given [...] as IVF. She was transferred to the [facility] for further management On arrival to [facility] heparin was infusing and she was pain free. Hospital Course: 1. Chest pain Troponin at [facility] were < 0.03 x 2 sets. EKG [...] appointments: During 8am-5pm Friday through Friday call [phone] to speak with a nurse in the cardiology clinic. All other times call [phone] and ask to speak to the waiter/waitress counter containers sales representative. Return to work: 48 hours. No lifting more than 5 lbs for 48 hours and no lifting more than 10 lbs for one week. Driving: No driving for 48 hours after catheterization. Follow up Appointments: PCP: Karli Aguayo MD, . December 15 at 09:45 Home oxygen therapy: N/A Arrangements for VNA/home care: none Provider Contact Information: Ashley Marinelli APRN [phone] Discharge References/Attachments: Discharge References/Attachments None Signed: Ashley [...] an ACS. We sent her to the logging rafter laborer today where her coronaries werefound to be normal appearing. Her left ventricular systolic function is normal. She tolerated the procedure today and was able to be discharged without significant complication. For any questions or issues regarding this hospitalization please feel free to contact me at [phone]. Star Villalobos MD [facility] Miscellaneous - Provider, Scanning - 12/07/2012 12:15 AM EST Miscellaneous - Provider, Scanning - 12/07/2012 12:10 AM EST documented in this encounter Plan of Treatment Not on filedocumented as of this encounter Procedures Procedure Name Priority Date/Time Associated Comments Diagnosis MIGRATION AGENT SCAN 12/08/2012 10:22 Res ults for this [...] STAT 12/07/2012 6:24 Results f or this ([facility] AM EST procedure are i n the [...] 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 DOC: MIGRATION AGENT (12/08/2012 10:22 AM EST) Narrative 12/08/2012 12:47 [...] AM EST) P athologist Signature EF 65 HEARTLAB SYSTEM Specimen (Source) Anatomical Location Collection Method / Collectio n Time Received Time / Laterality Volume 12/07/2012 Narrative HEARTLAB SYSTEM - 12/07/2012 9:55 AM EST Procedure: ? Transthoracic Echocardiogram Patient: ? LEESA Posadas ?(Age): 1940(72) Med Rec#: ?[id number] ? Sex: ?F ? Site Loc: ?[facility] ? Ht / Wt: ??162(cm)/62(kg) Pt. Loc: ? Adult Floor ?BSA: ?1.67 Study Date: ?12/07/2012 ? Pt. Type: Inpatient Tape: ? Referring: Trent Graham Referring: CARLOS WILLIS E White Mixing Operator 2: Miky Sanchez [facility] Diagnosis: ??Acute MS (410.90) CPT Code(s): ??Echo Full (84471), ??Spec tral Doppler (49812), ??Color Doppler (96410), Indication(s): ??Myocardial infarction Rhythm: HR ?BP ?156/66 [...] ? Mid-Inferior ?Normal ? Mid-Inferoseptal ?Normal ? [place]-Septal ? Normal ? [place]-Anterior ? Normal ? [place]-Lateral ?Normal ? [place]-Inferior ? Normal ? [place]-Tip ?Normal ? Chambers ?Value ?Units (Range) ? [...] 09:54:38 Images reviewed and interpretation linda perez [facility] Cardiac Ultrasound Laboratory Procedure Note Alfa Bailon MD - 12/07/2012Format ting of this note might be different from the original. Procedure: Transthoracic Echocardiogram Patient: LEESA ROCHA(Age): 08/1940(72) Med Rec#: [id number] Sex: F Site Loc: [facility] Ht / Wt: 162(cm)/62(kg) Pt. Loc: Adult Floor BSA: 1.67 Study Date: 12/07/2012 Pt. Type: Inpatie nt Tape: Referring: Trent Graham Referring: CARLOS WILLIS E White Mixing Operator 2: Miky Sanchez [facility] Diagnosis: Acute MS (410.90) CPT Code(s): Echo Full (10421), Spectral Doppler (27015), Color Doppler (63348), Indication(s): Myocardial infarction Rhythm: HR BP 156/66 [...] Normal Mid-Posterolateral Normal Mid-Inferior Normal Mid-Inferoseptal Normal [place]-Septal Normal [place]-Anterior Normal [place]-Lateral Normal [place]-Inferior Normal [place]-Tip Normal Chambers Value Units (Range) LV EF [...] 12/07/2012 09:54: 38 Images reviewed and interpretation vertommie perez [facility] Cardiac Ultrasound Laboratory Trent Polo MD ECHO ORDERABLES Performing Organization Address City/State/ZIP Code Phon e Number HEARTLAB SYSTEM (ABNORMAL) Lipid panel (fasting) (12/07/2012 6:24 AM EST) P athologist Signature Chol, Total 201 (H) <=199 CERNER mg/dL MILLENNIUM Comment: Recommendations of the NCEP Adult Treatm ent Panel for the following risk cutoff thresholds for the [place] Citizen [place] populatio n: Desirable: <200 mg/dL Borderline High: 200-239 mg/dL High: > or = 240 mg/dL Triglycerides 72 <=149 mg/dL CERNER MILLENN IUM Comment: Reference Range: Normal triglycerides: ??<150 mg/dL Borderline high: ??150-199 mg/dL High: ??200-499 mg/dL Very high: ??>xa=342 mg/dL ASHLEE 2001; 285(19):8789-5892 HDL 79 >=40 mg/dL CERNER MILLENNIUM Comment: Reference range: ??Low HDL: ?? < 40 mg/dL ??Normal: ?40-60 mg/dL ??Desirable: > 60 mg/dL ASHLEE 2001; 285(19):2534-1050 LDL Cholesterol 108 (H) <=99 mg/dL CERNER CLIFFORD NIUM Comment: Reference range: ?? Optimal: ?<100 mg/dL ?? Near Optimal/Above Optimal: ?? 100-1 29 mg/dL ?? Borderline high: ?130-159 mg/dL ?? High: ? 160-189 mg/dL ?? Very high: ?>gg=688 mg/dL ASHLEE 2001: 285(19):9848-0254 Chol/HDL Ratio 2.5 ratio CERNER MILLENNI UM Comment: A Cholesterol to HDL ratio below 4:1 is desirable. ??Studies suggest that increased CAD risk occurs at ratios abov e 5 for females and above 6 for men. ? Citizen [place] Heart Association ??(htt p://www.americanheart.org) ? Gillian Int Med, 1994; 121:641 ? AM J Med, 1998; 105(1A):48S Specimen Anatomical Collection Method Collection Time Receive d Time (Source) Location / / Volume Laterality Blood specimen 12/07/2012 6:24 AM 013 6:33 (specimen) EST AM EST Resulting Agency Comment Spec In Lab Trent Polo MD CHEMISTRY ORDERABLES Performing Organization Address City/[facility]/ZIP [facility] Phon e Number [address] CERNER MILLENNIUM (ABNORMAL) APTT (12/07/2012 6:24 AM EST) P athologist Signature PTT 36 [...] Polo MD HEMATOLOGY ORDERABLES Performing Organization Address City/[facility] Phon e Number [address] CERNER MILLENNIUM (ABNORMAL) Cardiac Enzymes (12/07/2012 6:24 AM EST) P athologist Signature Troponin-T <0.03 <=0.03 CERNER ng/mL [facility] Comment: 0.03 ng/mL: Represents the 99th [...] of the Joint [place] an Society of Cardiology/[place]izen [place] College of Cardiology Committee for the redefinition of myocardial infarction. Journal of the [place] College of Cardi ology 2000; 36: 959-969] CK, Total 192 (H) 0 - 160 unit/L LEDYNER MILLENNI UM Specimen Anatomical Collection Method Collection Time Receive d Time (Source) Location / / Volume Laterality Blood specimen 12/07/2012 6:24 AM 013 6:33 (specimen) EST AM EST Resulting Agency Comment Spec In Lab Trent Polo MD CHEMISTRY ORDERABLES Performing Organization Address City/State/[place] [address] [facility] RightSignatureVALLEYWISE [facility] MARYVALEIUM EKG 12 Lead (12/07/2012 3:21 AM EST) Component Value Ref Range Test Analysis Performed Pathologis t Method Time At Signature Ventricular rate 58 BPM MUSE SYSTEM Atrial Rate 58 BPM MUSE SYSTEM P-R Interval 144 ms MUSE SYSTEM QRS Duration 98 ms MUSE SYSTEM Q-T Interval 492 ms MUSE SYSTEM QTC Calculated 482 ms MUSE SYSTEM (Bezet) Calculated P Shirley 59 degrees MUSE SYSTEM Calculated R Shirley -29 degrees MUSE SYSTEM Calculated T Shirley -57 degrees MUSE SYSTEM INTERPRETATION Sinus bradycardia [...] fellow Antoinette SHELTON, Matt (47) on 12/07/2012 8:33 :42 AM Confirmed by MD Lopez Robert (73) on 12/07/2012 10:31:18 AM Specimen Anatomical Collection Method Collection Time Receive d Time (Source) Location / / Volume Laterality 12/07/2012 3:21 AM 3 EST 10:31 AM EST Trent Polo MD ECG ORDERABLES Performing Organization Address City/State/ZIP Code Phon e Number MUSE SYSTEM (ABNORMAL) Differential, Automated (12/07/2012 12:18 AM EST) Patholo gist Method Time Signature Neutrophils % 78.1 (H) [...] Organization Address City/State/ZIP Code Phon e Number [place] [id number] CERNER MILLENNIUM Hemoglobin A1c (12/07/2012 12:18 AM EST) [facility] Method Time Signature Hemoglobin A1C 5.7 4.3 [...] with hemoglobinopathies. Additional resources are available on [facility] ADA website: ??http://professional.diabetes.org/gluc osecalculator.aspx Reference: Kermit WEISS, Tawny J, Sherri R, et al. ??Tr anslating the A1C assay into estimated average glucose values. ??Diabetes Care 2008:31(8):3250-8086. Specimen Anatomical Collection Method Collection Time Receive d Time (Source) Location / / Volume Laterality Blood specimen 12/07/2012 12:18 3 (specimen) AM EST 12:25 AM EST Resulting Agency Comment Spec In Lab Trent Polo MD CHEMISTRY ORDERABLES Performing Organization Address City/State/[place] [address] [facility] (ABNORMAL) Cardiac Enzymes (12/07/2012 12:18 AM EST) athologist Signature Troponin-T <0.03 <=0.03 CERNER ng/mL [...] of the [place] an Society of Cardiology/[place] College of Cardiology Committee for the redefinition of myocardial infarction. Journal of the [place] College of Cardi ology 2000; 36: 959-969] CK, Total 301 (H) 0 - 160 unit/L CERNER MILLENNI UM Specimen Anatomical Collection Method Collection Time Receive d Time (Source) Location / / Volume Laterality Blood specimen 12/07/2012 12:18 3 (specimen) AM EST 12:25 AM EST Resulting Agency Comment Spec In Lab Trent Polo MD CHEMISTRY ORDERABLES Performing Organization Address City/[facility]/ZIP Code Phon e Number [address] CERNER MILLENNIUM Magnesium (12/07/2012 12:18 AM EST) P athologist Signature Magnesium 0.86 0.69 - 1.07 CERNER mmol/L MILLENNIUM Specimen Anatomical Collection Method Collection Time Receive d Time (Source) Location / / Volume Laterality Blood specimen 12/07/2012 12:18 3 (specimen) AM EST 12:25 AM EST Resulting Agency Comment Spec In Lab Trent Polo MD CHEMISTRY ORDERABLES Performing Organization Address City/[facility]/ZIP Code Phon e Number [address] CERNER MILLENNIUM (ABNORMAL) APTT [...] Polo MD HEMATOLOGY ORDERABLES Performing Organization Address City/[facility]/ZIP Code Phon e Number [address] CERNER MILLENNIUM Prothrombin Time (12/07/2012 12:18 AM EST) athologist Signature PT 12.8 11.9 - 14.7 CERNER sec MILLENNIUM Comment: [facility] Transfusion Committee Guidelines: I NR less than 2.0, PTT less than OR equal to 43.5 seconds, or Fibrinogen gre ater than or equal to 100 mg/dl indicate adequate procoagulant activity for hemostasis in patients without underlying bleeding disorders. INR 1.0 0.9 - 1.1 CERNER MILLENNIUM Specimen Anatomical Collection Method Collection Time Receive d Time (Source) Location / / Volume Laterality Blood specimen 12/07/2012 12:18 3 (specimen) AM EST 12:25 AM EST Resulting Agency Comment Spec In Lab Trent Polo MD HEMATOLOGY ORDERABLES Performing Organization Address City/[facility]/ZIP Code Phon e Number [address] CERNER MILLENNIUM Comprehensive metabolic panel (non-fasting) (12/07/2012 12:18 AM EST) P athologist Signature Glucose Lvl 125 60 - 199 CERNER mg/dL MILLENNIUM Comment: Diabetes: >=200 mg/dL plus symp toms BUN 14 8 - 18 mg/dL CERNER MILLENNIUM Creatinine 0.74 0.70 - 1.20 mg/dL CERNER MILL ENNIUM Comment: Please note that the pediatric reference intervals supplied above were not validated at [facility]. Results from pediatri c patients should be [...] Organization Address City/State/[place] [address] CERNER MILLENNIUM (ABNORMAL) CBC [...] RDWSD 42.9 35.0 - CERNER 46.0 fL MILLENNIUM RDWCV 13.7 10.9 - CERNER 14.4 % MILLENNIUM MPV 12.0 9.0 - 12.0 [facility] Specimen Anatomical Collection Method Collection Time Receive d Time (Source) Location / / Volume Laterality Blood specimen 12/07/2012 12:18 3 (specimen) AM EST 12:25 AM EST Resulting Agency Comment Spec In Lab Trent Polo MD HEMATOLOGY ORDERABLES Performing Organization Address City/State/[place] [address] [facility] E[facility] 12 Lead (12/07/2012 12:16 AM EST) Component Value Ref Range Test Analysis Performed Pathologis t Method Time At Signature Ventricular rate 59 BPM MUSE SYSTEM Atrial Rate 59 BPM MUSE SYSTEM P-R Interval 148 ms MUSE SYSTEM QRS Duration 104 ms MUSE SYSTEM Q-T Interval 498 ms MUSE SYSTEM QTC Calculated 493 ms MUSE SYSTEM (Bezet) Calculated P Shirley 57 degrees MUSE SYSTEM Calculated R Shirley -23 degrees MUSE SYSTEM Calculated T Shirley 87 degrees MUSE SYSTEM INTERPRETATION Sinus bradycardia MUSE SY STEM Possible Left atrial enlargement Moderate voltage criteria for LVH, may be normal variant T wave abnormality, consider lateral ischemia Nonspecific T wave abnormality Anterior leads Prolonged QT Abnormal ECG No previous ECGs available I personally reviewed the tracing and edited the fellows int erpretation Confirmed by fellow Matt Curry MD ([id number]) on 12/07/2012 8:18 :35 AM Confirmed by MD Lopez Robert ([id number]) on 12/07/2012 10:26:47 AM Specimen Anatomical Collection Method Collection Time Receive d Time (Source) Location / / Volume Laterality 12/07/2012 12:16 12/07/2012 AM EST 10:26 AM EST Star Villalobos MD ECG ORDERABLES Performing Organization Address City/State/ZIP Code Phon e Number MUSE SYSTEM documented in this encounter Visit Diagnoses Not on filedocumented in this encounter Administered Medications Inactive Administered [...] than 145 sec X 2 - call rooming house operator See Bolus dosing guidance for aPTT values less than 80 seconds under PRN medications, Routine New Bag 12/07/2012 12:30 AM EST 700 Units/hr 14 mL/hr hydrochlorothiazide (HYDRODIURIL) tablet 25 mg Given 12/07/2012 9:00 AM EST 25 mg 25 mg, Oral, DAILY, First dose on Fri12/07/12 at 0900, Until Discontinued, Routine iohexol (OMNIPAQUE) 350 mg iodine/mL Given 12/07/2012 12:[address] 60 mLs injection ONCE PRN, Starting on Fri12/07/12 at 1216, Until Fri12/07/12 at 1216, Per Protocol, Cath (Intra-Procedure), Routine lidocaine (XYLOCAINE) 10 mg/mL (1 %) Given 12/07/2012 11:[address] 12 mg injection ONCE PRN, Starting on Fri12/07/12 at 1155, Until Fri12/07/12 at 1216, Cath (Intra-Procedure), Routine lisinopril (PRINIVIL;ZESTRIL) tablet 40 mg Given [...] 5 mg (COMPLETED) 0415 (Given - Provider: aMged Newell RN) 5 mg, Oral, ONCE, 1 [...] (CANCELED) 0030 (New Bag - Provider: Saman Martins RN)0702 (Rate/Dose Change - Provider: Saman Martins RN) 350-7,000 Units/hr = 7-140 mL/hr, Intrav enous, at 7-140 mL/hr, CONTINUOUS, Starting Fri12/07/12 at 0030, Until Fri12/07/12 at 2017, [...] Aguilar MD) ONCE PRN, Starting Fri12/07/12 at 1155, Until Fri12/07/12 at 1216, Cath (Intra- Procedure), Routine documented in this encounter Care Teams Cell Repairer Relationship Specialty Start Date End Date Karli Aguayo MD PCP - General 09/04/10 02/24/19 [address] [place] [address] documented as of this encounter
--- OUTSIDE RECORDS SUMMARY | 2022-05-17 01:01 | XMS_ITS | Encounter Summary ---
:1940 Author Organization [place] [address] Care Team Providers Name Role Phone RojelioMarbella APRN Primary Care Provider [phone] Encounter Details Date Type Department Care Team Description 07/17/2020 Office Visit Dermatology at [facility], History of basal cell carcinoma; Ollie SHELTON Solar lentigo [address] [facility] Rojelio B DERMATOLOGY [place], [place] [phone] Social History Tobacco Use Types Packs/Day Years Used Date Never Smoker Smokeless Tobacco: Never Used Alcohol Use Standard Drinks/Week Comments No 0 (1 standard drink = 0.6 oz pure alcoho l) Sex Assigned at Date Recorded Not on file documented as of this encounter Progress Notes [facility] MD - 07/17/2020 3:30 PM EDT Problem: 1. ??Follow-up belated 1 year actinic check 2. 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 ??History of numerous nonmelanoma case malignancies 4. ??Status post PDT therapy by Dr. Munguia in August 2010 Mey follows up for a belated 1 year skin checkup. The right medial cheek site, biopsy last visit, was BCCA with infiltrative features but is healed well. She has no particular lesions of concern otherwise today. Physical examination reveals a pleasant 80-year-old woman who has a benign examination of the face the neck the chest of the back the hands the arms the forearms thighs and the calves. There is no evidence of any malignant lesions today. She continues to have a somewhat atypically pigmented junctional melanocytic lesion on the left dorsal forearm. Again today as it did last year it measures 1 cm in diameter. It appears to be a solar lentigo. Assessment and plan: History of multiple nonmelanoma cutaneous malignancies 1. Patient reassured about today's benign skin examination 2. Continue sun avoidance precautions 3. Return to clinic in a year for repeat check. Solar lentigo left dorsal forearm 1. Lesion evaluated again today and continues to measure 1 cm in length 2. Patient reassured CC: Marbella Serrato APRN documented in this encounter Plan of Treatment Not on filedocumented as of this encounter Visit Diagnoses Diagnosis History of basal cell carcinoma Personal history of other malignant neop lasm of skin Solar lentigo Other dyschromia documented in this encounter Care Teams Electrician Control Equipment Relationship Specialty Start Date End Date Marbella Serrato APRN PCP - General Family Medicine 02/25/19 [address] [place] [address] documented as of this encounter
--- OUTSIDE RECORDS SUMMARY | 2022-05-17 01:01 | XMS_ITS | Encounter Summary ---
:1940 Author Organization [facility] Address [address] [place] [address] Care Team Providers Name Role Phone Karli Aguayo MD Primary Care Provider Encounter Details Date Type Department Care Team Description 12/06/2012 Orders Only Cardiology at [facility] Star Villalobos, [facility] [place] [address] [address] [facility] [phone] CARDIOLOGY DEPT [place] [id number] (Wo rk) Social History Tobacco Use Types Packs/Day Years Used Date Never Smoker Alcohol Use Standard Drinks/Week Comments No 0 (1 standard drink = 0.6 oz pure alcoho l) Sex Assigned at Date Recorded Not on file documented as of this encounter Plan of Treatment Not on filedocumented as of this encounter Procedures Procedure Name Priority Date/Time Associated Diagnosis Comme nts FILM LIBRARY Routine 12/06/2012 9:58 PM Results f or this STORAGE ONLY DX EST procedure ar e in ABDOMEN the results section. documented in this encounter Results Film Library- Storage only DX Abdomen (12/06/2012 9:58 PM EST) Specimen (Source) Anatomical Collection Method Collection Time Re ceived Time Location / / Volume Laterality 12/06/2012 9:58 PM EST Narrative [facility] - 06/01/2014 11:05 PM EDT This is a non-reportable exam. Procedure Note Carson Pennington - 06/01/2014Formatti ng of this note might be different from the original. This is a non-reportable exam. Star Villalobos MD IMG FILM LIBRARY ORDERABLES Performing Organization Address City/State/ZIP Code Phon e Number [facility] RAD [address] [facility] [place] [address] documented in this encounter Visit Diagnoses Not on filedocumented in this encounter Care Teams Presser First Relationship Specialty Start Date End Date Karli Aguayo MD PCP - General 09/04/10 02/24/19 [address] [place] [address] documented as of this encounter
--- OUTSIDE RECORDS SUMMARY | 2022-05-17 01:01 | XMS_ITS | Encounter Summary ---
:1940 Author Organization [facility] [place] [address] Care Team Providers Name Role Phone Karli Aguayo MD Primary Care Provider Encounter Details Date Type Department Care Team Description 02/05/2017 Telephone Dermatology at [facility] Char Burr LPN [address] [place] [address] Social History Tobacco Use Types Packs/Day Years Used Date Never Smoker Alcohol Use Standard Drinks/Week Comments No 0 (1 standard drink = 0.6 oz pure alcoho l) Sex Assigned at Date Recorded Not on file documented as of this encounter Miscellaneous Notes Telephone Encounter - Char Rivers LPN - 02/05/2017 10:44 AM EDT Nurse reviewed biopsy results with patient; residual BCCA, 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 Patient voiced understanding. documented in this encounter Plan of Treatment Not on filedocumented as of this encounter Visit Diagnoses Not on filedocumented in this encounter Care Teams Meat Grinder Relationship Specialty Start Date End Date Karli Aguayo MD PCP - General 09/04/10 02/24/19 [address] [place], [place] [id number] documented as of this encounter
--- OUTSIDE RECORDS SUMMARY | 2022-05-17 01:02 | XMS_ITS | Encounter Summary ---
:1940 Author Organization [facility] Address [address] [place] [address] Care Team Providers Name Role Phone Karli Aguayo MD Primary Care Provider Encounter Details Date Type Department Care Team Description 04/06/2020 Lab Requisition [facility] Outr Resulting Lab, Pathology & Laboratory Provider [facility] [address] [place], [place] [id number] Social History Tobacco Use Types Packs/Day Years Used Date Never Assessed Sex Assigned at Date Recorded Not on file documented as of this encounter Plan of Treatment Not on filedocumented as of this encounter Procedures Procedure Name Priority Date/Time Associated Diagnosis Comme nts FECAL BACTERIAL Routine 04/05/2020 10:00 Results for this PATHOGENS BY PCR EDT procedure a re in the results section. documented in this encounter Results FECAL BACTERIAL PATHOGENS BY PCR (04/05/2020 10:00 EDT) Pathologist Sig nature Salmonella PCR Negative Negative [facility] Shigella/Enteroinvasive Negative Negative [facility]. coli [facility] SERVICES HN LAB CAMPYLOBACTER PCR Negative Negative [facility] ER LABORATORY SERVICES Shiga Toxin PCR Negative Negative [facility] Specimen Feces - Specimen from rectum (specimen) Performing Organization Address City/State/ZIP Code Phon e Number [facility] [address] [place] [address] SERVICES documented in this encounter Visit Diagnoses Not on filedocumented in this encounter Care Teams Certified Dialysis Technician Relationship Specialty Start Date End Date Karli Aguayo MD PCP - General 07/07/13 [address] [place] [address] documented as of this encounter
--- OUTSIDE RECORDS SUMMARY | 2022-05-17 01:02 | XMS_ITS | Encounter Summary ---
:1940 Author Organization [facility] Address [address] [place] [address] Care Team Providers Name Role Phone Karli Aguayo MD Primary Care Provider Encounter Details Date Type Department Care Team Description 07/02/2020 Lab Requisition [facility] Outr Resulting Lab, Pathology & Laboratory Provider [facility] [address] [place], [place] [id number] Social History Tobacco Use Types Packs/Day Years Used Date Never Assessed Sex Assigned at Date Recorded Not on file documented as of this encounter Plan of Treatment Not on filedocumented as of this encounter Procedures Procedure Name Priority Date/Time Associated Diagnosis Comme nts COVID[facility]19 [facility] Today 07/02/2020 0:20 EDT LAB PCR COVID-19 TESTING Routine 07/02/2020 0:20 EDT Resu lts for this procedure are i n the results section. documented in this encounter Results COVID-19 TEST [facility] PCR (07/02/2020 0:20 EDT) Specimen Swab - Entire nasopharynx (body structur e) Performing Organization Address City/State/ZIP Code Phon e Number [facility] [address] [place] [address] SERVICES COVID-19 TESTING (07/02/2020 0:20 EDT) COVID-19 rt-PCR Negative Negative [facility] Result Comment: CENTER LABORATORY This test has not been FDA c leared or approved. This test has been authorized by FDA under an EUA for use by authorized laboratories. This test has been authorized only for detection of nucleic acid fro SERVICES m 2019-nCo, not for any oth er viruses or pathogens. This test is only authorized for the duration of the declaration that circumstances exist justifying the authorization of emergency use of in vitro d iagnostic tests for detectio n and/or diagnosis of 2019-nCoV under section 564(b)(1) of Act, 21 U.S.C ?? 360bbb-3(b) (1), unless the authorization is terminated or revoked sooner. Negative results do not prec lude 2019-nCoV infection and should not be used as the sole basis for treatment or other patient management decisions. Negative results must be combined with clinical observa tions, patient history, and epidemiological informatio n. Performed on the [employer] Fusion instrument Performing Lab Hector [facility] Lab [facility] SERVICES Specimen Swab Performing Organization Address City/State/ZIP Code Phon e Number [facility] [address] [place] [address] SERVICES documented in this encounter Visit Diagnoses Not on filedocumented in this encounter Care Teams Manager Database Relationship Specialty Start Date End Date Karli Aguayo MD PCP - General 07/07/13 [address] [place] [address] documented as of this encounter
--- OUTSIDE RECORDS SUMMARY | 2022-05-17 01:02 | XMS_ITS | Encounter Summary ---
:1940 Author Organization [facility] Address [address] [place] [address] Care Team Providers Name Role Phone Unavailable Primary Care Provider Unavailable Encounter Details Date Type Department Care Team Description 04/02/2006 Results Only [facility] Karli Alaniz MD [facility] [address] [place] [address] [phone] (Wo rk) Social History Tobacco Use Types Packs/Day Years Used Date Never Assessed Sex Assigned at Date Recorded Not on file documented as of this encounter Plan of Treatment Not on filedocumented as of this encounter Procedures Procedure Name Priority Date/Time Associated Diagnosis Comme [facility] CYTOPATHOLOGY Routine 04/02/2006 0:00 EDT Results for this procedure are i n the results section . documented in this encounter Results CYTOPATHOLOGY (04/02/2006 0:00 EDT) Pathology Report: CYTOPATHOLOGY REPORT [facility] Reports generated via electronic interface contain sharon ginal data; however they are lacking the format of the original re port. Caution should be taken when reading/interpreting unfo rmatted reports. Name: ? MEY MENJIVAR ? Accession #: ? [id number] : ? 1940 (Age: 66) ??F ?Collect Date: ? 03/14 Location: ? [facility] ? Receive Date : ? 04/04/2006 Provider: ?KARLI MOORE MD Copy to: ? Specimen/Source: ?ThinPrep Pap Test, E ndocervix, processed on Pearl[employer].netPrep Imaging System, with manual evaluation Last Menstrual Period: ? 2003 Other: ? HPVA - HPV testing requested if ASC-US on the current ThinPrep Pap test. ? SPECIMEN ADEQUACY ? Satisfactory for Evaluation - transformation zone component present - scant squamous epithelial component GENERAL CATEGORIZATION ? Negative for Intraepithelial Lesion or Malignan cy ? Document reviewed and electronically signed by: ? KENNETH Brown(ASCP) ? Report Date: ??04/08/2006 10:20 End of Report Specimen Performing Organization Address City/State/ZIP Code Phon e Number [facility] [address] [place] [address] SERVICES [facility] [address] [place] [address] documented in this encounter Visit Diagnoses Not on filedocumented in this encounter
--- OUTSIDE RECORDS SUMMARY | 2022-05-17 01:02 | XMS_ITS | Encounter Summary ---
:1940 Author Organization [facility] [place] [address] Care Team Providers Name Role Phone Unavailable Primary Care Provider Unavailable Encounter Details Date Type Department Care Team Description 08/17/2010 Office Visit Dermatology Silvio Munguia, [facility] Daisha ferrari MD [place], [place] [phone] [place] [address] [facility] [place] [address] (Wo rk) Social History Tobacco Use Types Packs/Day Years Used Date Never Assessed Sex Assigned at Date Recorded Not on file documented as of this encounter Plan of Treatment Not on filedocumented as of this encounter Visit Diagnoses Not on filedocumented in this encounter
--- OUTSIDE RECORDS SUMMARY | 2022-05-17 01:02 | XMS_ITS | Clinical Summary ---
:1940 Author Organization [facility] Address [address] [place] [address] Care Team Providers Name Role Phone Karli Aguayo MD Primary Care Provider Social History Tobacco Use Types Packs/Day Years Used Date Never Assessed Sex Assigned at Date Recorded Not on file Plan of Treatment Health Maintenance Due Date Last Done Comments Fall Risk Screening 2007 Care Teams Skilled Laborer Relationship Specialty Start Date End Date Karli Aguayo MD PCP - General 07/07/13 [address] [place] [address]
--- OUTSIDE RECORDS SUMMARY | 2022-05-17 01:02 | XMS_ITS | Encounter Summary ---
:1940 Author Organization [facility] [place] [address] Care Team Providers Name Role Phone Karli Aguayo MD Primary Care Provider Encounter Details Date Type Department Care Team Description 07/09/2011 Abstract Dermatology Melissa Kimble, RN [address] [facility] [address] [place], [place] [address] Social History Tobacco Use Types Packs/Day Years Used Date Never Assessed Sex Assigned at Date Recorded Not on file documented as of this encounter Plan of Treatment Not on filedocumented as of this encounter Visit Diagnoses Not on filedocumented in this encounter Care Teams Finisher Card Tender Relationship Specialty Start Date End Date Karli Aguayo MD PCP - General 09/04/10 02/24/19 [address] [place], [place] [phone] documented as of this encounter
--- OUTSIDE RECORDS SUMMARY | 2022-05-17 01:02 | XMS_ITS | Encounter Summary ---
:1940 Author Organization [facility] Address [address] [place] [address] Care Team Providers Name Role Phone Unavailable Primary Care Provider Unavailable Encounter Details Date Type Department Care Team Description 11/05/2002 Results Only [facility] Karli Alaniz MD [facility] [address] [place] [address] [phone] (Wo rk) Social History Tobacco Use Types Packs/Day Years Used Date Never Assessed Sex Assigned at Date Recorded Not on file documented as of this encounter Plan of Treatment Not on filedocumented as of this encounter Procedures Procedure Name Priority Date/Time Associated Diagnosis Comme nts CYTOPATHOLOGY Routine 11/05/2002 0:00 EST Results for this procedure are i n the results section . documented in this encounter Results CYTOPATHOLOGY (11/05/2002 0:00 EST) Pathology Report: CYTOPATHOLOGY REPORT [facility] Reports generated via electronic interface contain sharon ginal data; however they are lacking the format of the original re port. Caution should be taken when reading/interpreting unfo rmatted reports. Name: ? MEY MENJIVAR ? Accession #: ? [id number] : ? 1940 (Age: 62) ??F ?Collect Date: ? 10/14 Location: ? [facility] ? Receive Date : ? 11/09/2002 Provider: ?KARLI MOORE MD Copy to: ? Specimen/Source: ?ThinPrep Pap Test, Endocer vix Last Menstrual Period: ? 03/14 Previous Gynecologic Pathology: ? ASC-US: 1998 ? SPECIMEN ADEQUACY ? Satisfactory for Evaluation - transformation zone component present GENERAL CATEGORIZATION ? Negative for Intraepithelial Lesion or Malignan cy ? Document reviewed and electronically signed by: ? MICHLELE Francisco(ASCP) ? Report Date: ??11/10/2002 13:10 End of Report Specimen Performing Organization Address City/State/ZIP Code Phon e Number [facility] [address] [place] [address] SERVICES [facility] [address] [place] [address] documented in this encounter Visit Diagnoses Not on filedocumented in this encounter
--- OUTSIDE RECORDS SUMMARY | 2022-05-17 01:02 | XMS_ITS | Encounter Summary ---
:1940 Author Organization [facility] [place] [address] Care Team Providers Name Role Phone Unavailable Primary Care Provider Unavailable Encounter Details Date Type Department Care Team Description 08/17/2010 Follow-Up Dermatology Silvio Munguia, [facility] [place] [address] [facility] [phone] [facility] [address] (Wo rk) Social History Tobacco Use Types Packs/Day Years Used Date Never Assessed Sex Assigned at Date Recorded Not on file documented as of this encounter Plan of Treatment Not on filedocumented as of this encounter Visit Diagnoses Not on filedocumented in this encounter
--- OUTSIDE RECORDS SUMMARY | 2022-05-17 01:02 | XMS_ITS | Encounter Summary ---
:1940 Author Organization [facility] Address [address] [place] [address] Care Team Providers Name Role Phone Unavailable Primary Care Provider Unavailable Encounter Details Date Type Department Care Team Description 07/04/2013 Results Only [facility] Willian Alfaro MD Laboratory Services - [address] [place] [address] [address] [facility] [place] [address] [phone] Social History Tobacco Use Types Packs/Day Years Used Date Never Assessed Sex Assigned at Date Recorded Not on file documented as of this encounter Plan of Treatment Not on filedocumented as of this encounter Procedures Procedure Name Priority Date/Time Associated Diagnosis Comme [facility] SURGICAL PATHOLOGY Routine 07/04/2013 19:34 Resul ts for this EDT procedure are i n the results section. documented in this encounter Results SURGICAL PATHOLOGY (07/04/2013 19:34 EDT) Pathology Report: SURGICAL PATHOLOGY REPORT [facility] Reports generated via electronic interface contain sharon ginal data; LAB however they are lacking the format of the original re port. Caution should be taken when reading/interpreting unfo rmatted reports. Name: ? MEY MENJIVAR ? Accession #: ? [id number] ? : ? 1940 (Age: 73) ??F ? Collect Date: ? 07/04/2013 ? Location: ? [facility] ? Receive Date: ? 013 ? Provider: WILLIAN ALFARO MD Copy to: EMANUEL MOORE MD ? Final Pathologic Diagnosis: GALLBLADDER, CHOLECYSTECTOMY: - ??Acute gangrenous cholecystitis. - ??Cholelithiasis. Document reviewed and electronically signed by: RENNY ASIF MD Report ??Date: 07/07/2013 15:48 By the signature above, the attending physician certif ies that he/she has personally conducted a gross and/or microscopic examin ation of the described specimens and rendered or confirmed the above diagnosi s. Specimen(s) Received: Gallbladder Clinical History: Acute cholecystitis Gross Description: ? Received in formalin labelled with proper patient identification (initials M, B) and gallbladder is a partially fragmented gallbladder (10.5 x 4.5 x 4.0 cm) with an attached segment of cystic duct (1.2 cm in length x 0.3 cm in diameter). ? The serosa is stroud-ta n and focally hemorrhagic. The mucosa is red-brown to vital-black, dusky and roughened and the wall ranges fr om 0.5 cm to 1.5 cm in thickness. The cystic duct lumen is patent. The cystic duct margin is inked blue. A single 2.1 cm in greatest dimension yellow cry stalline cholelith is present. ? Two self pay representative se ctions and the inked en face cystic duct margin are submitted in cassette 1. Cindy Fonseca 07/06/2013 09:14 AM End of Report Specimen Performing Organization Address City/State/ZIP Code Phon e Number [facility] [address] [place] [address] SERVICES [facility] [address] [place] [address] documented in this encounter Visit Diagnoses Not on filedocumented in this encounter
--- NOTE | 2022-05-17 14:11 | DI.DEXA_ITS ---
Exam(s) XR DEXA BONE DENSITY W/WO YELITZA EXAM: XR DEXA BONE DENSITY W/WO YELITZA CLINICAL HISTORY: DISORDER BONE DENSITY M85.88, SCREENING FOR OSTEOPOROSIS TECHNIQUE: COMPARISON: DX XR DEXA BONE DENSITY W/WO YELITZA from 08/13/2018 FINDINGS: Lateral Spine Image: Unremarkable. No compression deformities identified. Left hip: Total T-Score: -1.2. This compares to -0.7 on the prior examination. Total Z-Score: 0.9 T- and Z-scores: Findings are consistent with osteopenia. Lumbar Spine: Total T-Score: 0.7. This compares to 1.2 on the prior examination. Total Z-Score: 3.4 T- and Z-scores: Within normal limits. IMPRESSION: Osteopenia in the left hip.
== END ==
PROVIDERS: PCP Nurse Practitioner Family; Visit Provider Nurse Practitioner Family
DX: M85.88 Other specified disorders of bone density and structure, other site (principal)
CPT/HCPCS: 77080

== ENCOUNTER 2022-08-19 17:55 | Outpatient (REF) | payer MEDICARE, SELFPAY ==
[2022-08-19 22:08] LABS: TSH (W/Ref FT4) 1.34 uIU/mL (0.36-3.74); Vitamin B12 685 pg/mL (193-986)
== END 2022-08-19 17:56 | disposition home or self-care (01) ==
LOC: NCHCN 17:55
PROVIDERS: PCP Nurse Practitioner Family; Visit Provider Nurse Practitioner Family
DX: R41.3 Other amnesia (principal)
CPT/HCPCS: 82607; 84443

== ENCOUNTER → 2022-08-27 13:08 | Outpatient (BNVA) | payer MEDICARE, SELFPAY | PROVIDERS: PCP Nurse Practitioner Family; Referring Provider Nurse Practitioner Family; Visit Provider Nurse Practitioner Adult Health | DX: R41.89 Other symptoms and signs involving cognitive functions and awareness (principal); R29.2 Abnormal reflex; L60.2 Onychogryphosis; I10 Essential (primary) hypertension | CPT/HCPCS: 99204; 99215 ==

== ENCOUNTER → 2022-09-09 02:01 | Outpatient (CLI) | payer MEDICARE, SELFPAY ==
--- NOTE | 2022-09-09 07:45 | DI.MRI_ITS ---
Exam(s) MR BRAIN WO EXAM: MR BRAIN WO CLINICAL HISTORY: cognitive changes and + left Babinski ,R41.89 TECHNIQUE: Multiplanar multisequence MRI of the brain was performed. COMPARISON: No exams were available for comparison FINDINGS: VENTRICLES AND EXTRA AXIAL SPACES: Normal in size and morphology for the patient's age. MIDLINE SHIFT: None. CEREBRAL PARENCHYMA: Mild atrophy. Symmetric areas of high signal in the white matter likely reflect ing sequela chronic microvascular ischemia. No focus of restricted diffusion to suggest acute infarc t. No space-occupying lesion identified. HEMORRHAGE: None. BRAINSTEM/CEREBELLUM: Normal. VISUALIZED PARANASAL SINUSES/MASTOIDS:Clear. [place]: Normal flow void. PITUITARY GLAND: Unremarkable. ORBITS: Unremarkable. IMPRESSION: White matter changes likely reflecting small vessel disease. DATA REPOSITORY:
== END ==
PROVIDERS: PCP Nurse Practitioner Family; Visit Provider Nurse Practitioner Adult Health
DX: R41.89 Other symptoms and signs involving cognitive functions and awareness (principal); R29.2 Abnormal reflex; I67.89 Other cerebrovascular disease
CPT/HCPCS: 70551

== ENCOUNTER → 2022-10-02 09:04 | Outpatient (BNVA) | payer MEDICARE, SELFPAY | PROVIDERS: PCP Nurse Practitioner Family; Referring Provider Nurse Practitioner Family; Visit Provider Nurse Practitioner Adult Health | DX: G30.9 Alzheimer's disease, unspecified (principal); F02.80 Dementia in other diseases classified elsewhere, unspecified severity, without behavioral disturbance, psychotic disturbance, mood disturbance, and anxiety; F01.50 Vascular dementia, unspecified severity, without behavioral disturbance, psychotic disturbance, mood disturbance, and anxiety | CPT/HCPCS: 99213; 99214 ==

== ENCOUNTER → 2022-11-13 09:09 | Outpatient (BNVA) | payer MEDICARE, SELFPAY | PROVIDERS: PCP Nurse Practitioner Family; Referring Provider Nurse Practitioner Family; Visit Provider Nurse Practitioner Adult Health | DX: G30.9 Alzheimer's disease, unspecified (principal); F02.80 Dementia in other diseases classified elsewhere, unspecified severity, without behavioral disturbance, psychotic disturbance, mood disturbance, and anxiety; F01.50 Vascular dementia, unspecified severity, without behavioral disturbance, psychotic disturbance, mood disturbance, and anxiety | CPT/HCPCS: 99213; 99214 ==

== ENCOUNTER → 2022-12-25 09:37 | Outpatient (BNVA) | payer MEDICARE, SELFPAY | PROVIDERS: PCP Nurse Practitioner Family; Referring Provider Nurse Practitioner Family; Visit Provider Nurse Practitioner Adult Health | DX: G30.9 Alzheimer's disease, unspecified (principal); F02.80 Dementia in other diseases classified elsewhere, unspecified severity, without behavioral disturbance, psychotic disturbance, mood disturbance, and anxiety | CPT/HCPCS: 99213 ==

== ENCOUNTER 2023-03-12 08:41 | Observation (INO) | payer MEDICARE, SELFPAY ==
[2023-03-12] VITALS (40 sets, daily range): BP systolic 115–224; BP diastolic 56–106; PULSE 48–76; RESP 8–26; TEMP 36.3–36.4; O2SAT 95–99
--- NOTE | 2023-03-12 08:30 | RT.EKG_ITS ---
APPROVED REPORT Exam: Resting ECG Reason for Exam: dizziness/vomiting Patient Location: E HR:55 bpm ECG Measurements Heart Rate 55 AXIS IN 145 P 54 QRSd 134 QRS -33 QT 602 T 234 QTc 575 Conclusion Sinus bradycardia...rate< 60 Left bundle branch block...QRSd>120, broad/notched R ST elevation secondary to IVCD...Multiple VCG criteria Prolonged QT interval...QTc >500mS sinus anjum, left axis, LBBB with biphasic septal ST segments, higher amplitude but baseline morpholo gy from prior, negative sgarbossa
--- NOTE | 2023-03-12 09:00 | DI.CT_ITS ---
Exam(s) CT BRAIN NECK CTA EXAM: CT BRAIN NECK CTA CLINICAL HISTORY: dizziness. TECHNIQUE: Imaging Protocol: Axial CT angiography was performed with multi-slice acquisition and mu lti-planar and 3D reconstructions. CONTRAST MATERIAL: Intravenous: Omnipaque 350 Contrast volume:structured data in ml COMPARISON: CT ABD PELVIS WITH CONTRAST from 07/04/2013 MR MR BRAIN WO from 09/09/2022 FINDINGS: CT Head W/O and W contrast: Ventricles and Extra axial spaces: Normal in size and morphology for the patient's age. Hemorrhage: None. Cerebral parenchyma: Mild atrophy consistent with the patient's age. White matter changes of small v essel disease, roughly stable from prior MRI. Midline shift: None. Brainstem/Cerebellum: Normal. Calvarium: Normal. Visualized Paranasal sinuses/Mastoids: Clear. Soft Tissues: Unremarkable. Enhancement: Normal. CTA Brain W: Internal Carotid Arteries: Petrous: Normal. 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 The right internal carotid artery shows calcification but no significant stenosis. Cerebral: Normal. Middle Cerebral Arteries: Right: No aneurysm, occlusion or significant stenosis. Left: No aneurysm, occlusion or significant stenosis. Anterior Cerebral Arteries: Right: No aneurysm, occlusion or significant stenosis. Left: No aneurysm, occlusion or significant stenosis. Posterior cerebral Arteries: Right: No aneurysm, occlusion or significant stenosis. Left: No aneurysm, occlusion or significant stenosis. Vertebral Arteries: Right: No aneurysm, occlusion or significant stenosis. Left: No aneurysm, occlusion or significant stenosis. Basilar Artery: No aneurysm, occlusion or significant stenosis. CTA Neck W: Common Carotid: Right: No dissection, occlusion or significant stenosis. Left: No dissection, occlusion or significant stenosis. External Carotid: Right: No dissection, occlusion or significant stenosis. Left: No dissection, occlusion or significant stenosis. Internal Carotid: Right: Calcific plaque at the proximal internal carotid artery. No dissection, occlusion or signific ant stenosis. Left: Calcific plaque at the proximal internal carotid artery. No dissection, occlusion or significa nt stenosis. Vertebral Artery: Right: No dissection, occlusion or significant stenosis. Left: No dissection, occlusion or significant stenosis. Lung Apices: Normal. Bones: Degenerative changes in the spine. No acute abnormality. Soft Tissues: Normal. IMPRESSION: 1. 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 head: White matter changes of small vessel disease. No acute hemorrhage or infarct 3. CTA neck: Calcific plaque at the proximal internal carotid arteries without significant stenosis. 4. Findings called to Aga Belcher of the emergency department RADIATION DOSE DELIVERED: 1,875.59mGy.cm Total DLP DATA REPOSITORY: All CT scans at this facility are submitted to the National Radiology Data Registry (NRDR) Dose Index Registry (DIR) with the [employer] (ACR). RADIATION OPTIMIZATION: All CT scans at this facility use at least one of these dose optimization te chniques: automated exposure control; mA and/or kV adjustment per patient size (includes targeted exa ms where dose is matched to clinical indication); or iterative reconstruction.
[2023-03-12 09:32] LABS: Abs Immature Grans 0.02 10^3/uL (0.0-0.06); Absolute Basophil Count 0.06 10^3/uL (0.0-0.2); Absolute Eosinophil Count 0.03 10^3/uL (0.0-0.7); Absolute Lymphocyte Count 1.57 10^3/uL (1.2-3.4); Absolute Monocyte Count 0.31 10^3/uL (0.1-0.8); Absolute Neutrophil Count 6.14 10^3/uL (1.2-6.7); Basophils % 0.7; Eosinophils % 0.4; HCT 46.7 % (36.0-46.0); HGB 15.4 g/dL (11.2-15.7); Immature Grans % 0.2; Lymphocytes % 19.3; MCH 27.8 pg (27.0-33.0); MCV 84 fL (80-95); MPV 12.7 fL (8.0-11.0); Monocytes % 3.8; Neutrophils % 75.6; Platelet Count 194 10^3/uL (130-400); RBC 5.54 10^6/uL (3.93-5.22); RDW 12.7 % (11.7-14.6); RDW-SD 39.6 fL; WBC 8.13 10^3/uL (4.4-10.8)
[2023-03-12] MEDS: Metoclopramide 10 MG/2 ML VIAL 5 MG IVP (09:35)
[2023-03-12] MEDS: dilTIAZem CD 180 MG CAPCR PO (09:36)
[2023-03-12] MEDS: Lactated Ringers 1,000 ML 1000 ML IV (09:37)
[2023-03-12 09:44] LABS: Bilirubin Negative (Negative); Blood Negative (Negative); Clarity Clear (Clear); Glucose Negative (Negative); Ketones Trace mg/dL (Negative); Leukocyte Esterase Negative (Negative); Nitrite Negative (Negative); Urobilinogen 0.2 mg/dL (Up to 0.2); pH 8.5 (5-8)
[2023-03-12 10:00] LABS: Creatine Kinase 182 U/L (26-192); Magnesium 1.9 mg/dL (1.8-2.4)
[2023-03-12 10:01] LABS: ALT 27 U/L (14-59); AST 23 U/L (15-37); Albumin 3.8 g/dL (3.4-5.0); Alkaline Phosphatase 123 U/L (46-116); Anion Gap 11.2 mmol/L (3-11); BUN 18 mg/dL (7-18); Bilirubin, Total 0.5 mg/dL (0.2-1.0); CO2 24.8 mmol/L (21.0-32.0); CREATININE 0.7 mg/dL (0.55-1.02); Calcium 8.5 mg/dL (8.5-10.1); Chloride 103 mmol/L (98-107); Estimated GFR 86.83 (mL/min/1.73m2); Glucose 120 mg/dL (74-106); Potassium 3.6 mmol/L (3.5-5.1); Sodium 139 mmol/L (136-145); Total Protein 7.5 g/dL (6.4-8.2)
[2023-03-12 10:03] LABS: Troponin I 261 ng/L (<or=60)
[2023-03-12] MEDS: Normal Saline - Diluent 50 ML VIAL IJ (10:58)
[2023-03-12] MEDS: Normal Saline Flush 10 ML SYR IVP ×2 (10:58→16:28)
[2023-03-12] MEDS: Omnipaque 350 MG/ML 500 ML BTL-Imaging package 85 ML IJ (10:59)
--- NOTE | 2023-03-12 11:15 | RT.EKG_ITS ---
APPROVED REPORT Exam: Resting ECG Reason for Exam: 2ND EKG Patient Location: E HR:71 bpm ECG Measurements Heart Rate 71 AXIS IN 176 P 33 QRSd 168 QRS -42 QT 528 T 159 QTc 575 Conclusion Sinus rhythm...normal P axis, V-rate 60- 99 Left bundle branch block...QRSd>120, broad/notched R ST elevation secondary to IVCD...Multiple VCG criteria sinus rhythm, left axis, LBBB, negative sgarbossa
[2023-03-12] MEDS: Aspirin 81 MG CHEW 324 MG CH (11:34)
[2023-03-12] MEDS: Benazepril 10 MG TAB 40 MG PO (11:37)
--- NOTE | 2023-03-12 12:02 | NUR.NOTE ---
Nursing Note: patient needed x1 min hands on assist to commode and back to bed.
[2023-03-12 12:15] LABS: Troponin I 222 ng/L (<or=60)
--- NOTE | 2023-03-12 14:26 | ED.GENADUL_ITS ---
Discharge Plan Disposition Patient Disposition: Admit to [facility] Discharge Details Clinical Impression: Elevated troponin level not due to acute coronary syndrome, Vertigo, Cognitive changes Admit Date/Time: 03/12/23 20:28 Admit Provider: Peter Mosley Attending Provider: Peter Mosley Primary Care Provider: Marbella Serrato ED Provider: Edward Branham Discharge Data Discharge Date/Time-TO BE ENTERED AT DEPARTURE: 03/12/23 21:24 Medical Decision Making <SHADY Strong - Last Filed: 03/13/23 15:36> 83-year-old female presents with acute onset of dizziness this morning in the absence of chest pain or shortness of breath, EKG with some increased amplitude and a baseline abnormal EKG with history of left bundle branch block Troponin is elevated at 261, history of elevated troponin levels in the 140s, slightly higher than usual Repeat troponin shows 222 Repeat EKG actually appears improved Patient is feeling marked clinical improvement after Reglan, fluids, evaluation, she is monitored on telemetry without acute abnormality Case was discussed with cardiology physician hearing and speech assistant, Lily Sofia who is reviewing findings with pre press operator and will return phone call Aspirin 325 was initiated Case discussed with neurosurgery after CTA returns with an aneurysm at the [place] along the internal carotid artery, neurosurgeon would like an MRA and possible follow-up, they would like to be consulted once MRI results return Repeat troponin was 222, will repeat an additional troponin Case discussed with Lily travis, cardiology PA, recommends additional intervention at the discretion of family, could treat as an NSTEMI per cardiology PA, may be in the setting of hypertension without her medication <Edward Branham NP - Last Filed: 03/14/23 14:19> 83-year-old female presents with acute onset of dizziness this morning in the absence of chest pain or shortness of breath, EKG with some increased amplitude and a baseline abnormal EKG with history of left bundle branch block Troponin is elevated at 261, history of elevated troponin levels in the 140s, slightly higher than usual Repeat troponin shows 222 Repeat EKG actually appears improved Patient is feeling marked clinical improvement after Reglan, fluids, evaluation, she is monitored on telemetry without acute abnormality Case was discussed with cardiology physician hearing and speech assistant, Liyl Sofia who is reviewing findings with pre press operator and will return phone call Aspirin 325 was initiated Case discussed with neurosurgery after CTA returns with an aneurysm at the [place] along the internal carotid artery, neurosurgeon would like an MRA and possible follow-up, they would like to be consulted once MRI results return Repeat troponin was 222, will repeat an additional troponin Case discussed with Lilyaz Newby again, cardiology SHADY, recommends additional intervention at the discretion of family, could treat as an NSTEMI per cardio logmagdalena CARUSO, may be in the setting of hypertension without her medication 1600-received signout from Aga CARUSO pending MRA and brain MRI with and without. At time of signout patient was in MRI already. Reassessed patient when she returned from MRI and she states improvement of symptoms and has no further complaints. We will continue to monitor patient pending troponin and imaging results along with neurosurgery consult. Reviewed second troponin which is 229. Did reassess patient again and patient denies any chest pain shortness of breath difficulty breathing or any signs or symptoms that would be suspicious of cardiac nature. I question potential troponin leak or symptoms secondary to her being off of her medications. We will continue to monitor at this time. 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 Otherwise no hemorrhagic or ischemic findings noted. Discussed case with neurosurgery at [facility] whom stated that given no acute or worrisome findings that patient could follow-up on an outpatient basis. Went into discussed this with family and patient and patient states continued return now of dizziness and not feeling well. Patient still denies chest pain shortness of breath or other symptoms. Patient does have some early vascular dementia and upon discussion daughters do state that patient has history of vertigo. Due to this we will give patient small dose of meclizine and additional 250 bolus of normal saline given that this did help earlier. We will also plan on having patient admitted for observation and further cardiac monitoring. Discussed with family and they stated that patient is DNR/DNI and that they do not want any aggressive surgical interventions but are okay with medical management of patient's symptoms at this time. Imaging Data Radiologic Study: Imaging: MRI Radiologist's impression: Exam(s) PROCEDURE INFORMATION: Exam: MRA Head Without Contrast; Arteriography Exam date and time: 03/12/2023 4:02 PM Age: 83 years old Clinical indication: Vertigo TECHNIQUE: Imaging protocol: Magnetic resonance angiography head without contrast. [id number] (TOF) technique was utilized for this exam. Exam focused on the arteries. COMPARISON: CT BRAIN NECK CTA 03/12/2023 10:56 AM FINDINGS: ANTERIOR CIRCULATION: Right internal carotid artery: Intracranial segment is patent with no significant stenosis. No aneurysm. Right middle cerebral artery: No occlusion or significant stenosis. No aneurysm. Right anterior cerebral artery: No occlusion or significant stenosis. No aneurysm. Left internal carotid artery: There is a 1.1 x 0.9 cm saccular aneurysm at the supraclinoid segment of the left ICA. The aneurysm is laterally oriented. Left middle cerebral artery: No occlusion or significant stenosis. No aneurysm. Left anterior cerebral artery: No occlusion or significant stenosis. No aneurysm. POSTERIOR CIRCULATION: Right vertebral artery: No occlusion or significant stenosis. No aneurysm. Left vertebral artery: No occlusion or significant stenosis. No aneurysm. Basilar artery: No occlusion or significant stenosis. No aneurysm. Right posterior cerebral artery: There is a persistent origin of the right D[employer]IA REPRESENTATIVE. No occlusion or significant stenosis. No aneurysm. Left posterior cerebral artery: No occlusion or significant stenosis. No aneurysm. IMPRESSION: 1. 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 2. No significant stenosis or occlusion. Dictated and Authenticated by: Mimi Cabrera MD. Radiologic Study #2: Imaging: MRI Radiologist's impression: Exam(s) PROCEDURE INFORMATION: Exam: MR Head Without and With Contrast Exam date and time: 03/12/2023 4:20 PM Age: 83 years old Clinical indication: Other: Dizziness TECHNIQUE: Imaging protocol: Magnetic resonance imaging of the head without and with contrast. Contrast material: DOTAREM; Contrast volume: 12 ml; Contrast route: INTRAVENOUS (IV); COMPARISON: MR ANGIO BRAIN WO 03/12/2023 4:02 PM FINDINGS: Brain: No acute infarct. No acute intracranial hemorrhage, mass effect or midline shift.There are scattered foci of T2 flair signal abnormality in the periventricular and subcortical white matter, which may be on the basis of chronic microvascular ischemic disease. There is a focus of susceptibility artifact in the left cerebellar hemisphere and right frontal lobe, likely secondary to remote microhemorrhage. No intracranial mass or abnormal enhancement. Cerebral ventricles: No ventriculomegaly. Bones/joints: Unremarkable. Paranasal sinuses: Normal as visualized. No acute sinusitis. Mastoid air cells: There is mild fluid in the right mastoid air cells. Orbital cavities: Unremarkable. Soft tissues: Unremarkable. IMPRESSION: 1. No evidence of acute infarct or acute intracranial hemorrhage. 2. Mild right mastoid air cell effusion. HPI <SHADY Strong - Last Filed: 03/13/23 15:36> General Date/Time Provider Initiated Documentation: 03/12/23 08:50 . HPI Narrative: This 83-year-old female with history of Lyme disease, hypertension, dizziness, vascular dementia presents with report of dizziness and nausea this morning. She states she felt the room was spinning around her. She denies any fever or chills. She denies any chest pain or shortness of breath. There were no falls or injuries. Her symptoms lasted until presentation in the emergency department She denies any history of similar symptoms in the past. She did not take any new medications in fact she has not taken her antihypertensives for the past 4 days per patient. She denies any acute vision change or localized strength or sensation change. Related Data Home Medications Medication Instructions Recorded Confirmed diltiazem HCl 180 mg 180 mg PO HS 07/04/13 03/12/23 capsule,extended release 24 hr nitroglycerin 0.4 mg sublingual 0.4 mg sublingual Q5 MIN PRN X3 10/22/17 03/12/23 tablet (Nitrostat) PRN #100 tabs ibuprofen 200 mg tablet 400 mg PO Q6H PRN 05/09/20 03/12/23 benazepril 40 mg tablet 40 mg PO DAILY 01/06/23 03/12/23 meclizine 12.5 mg tablet 12.5 mg PO TID PRN PRN #30 tabs 03/13/23 Previous Rx's Medication Instructions Recorded nitroglycerin 0.4 mg sublingual 0.4 mg sublingual Q5 MIN PRN X3 10/22/17 tablet (Nitrostat) PRN #100 tabs meclizine 12.5 mg tablet 12.5 mg PO TID PRN PRN #30 tabs 03/13/23 Allergies Allergy/AdvReac Type Severity Reaction Status Date / Time latex Allergy Mild rash Unverified 01/06/23 17:14 propoxyphene HCl AdvReac Severe profound Unverified 03/12/23 09:07 [From Darvon Compound-65] hypotension antibiotic ointments AdvReac Mild rash Uncoded 01/06/23 17:14 General Stated Complaint: Dizzy/Sync DAVID: 3 PFSH <SHADY Strong - Last Filed: 03/13/23 15:36> All Active Problems (Updated 03/12/23 @ 23:31 by Peter Mosley) Internal carotid aneurysm (Chronic) Elevated troponin level not due to acute coronary syndrome (Acute) Vertigo (Acute) Dehydration (Acute) Nail dystrophy (Acute) Irregular bowel habits (Acute) Diarrhea (Acute) Elevated LFTs (Acute) Lyme disease (Acute) Heart murmur (Acute) Dizziness (Acute) Hypertension (Chronic) History of adverse reaction to anesthesia (Acute) Abnormal weight loss (Acute) Basal cell carcinoma (Chronic) Incarcerated left inguinal hernia (Acute) Cognitive changes (Acute) Hypertrophy of nail (Acute) Alzheimer's dementia without behavioral disturbance (Chronic) Vascular dementia (Acute) Medical History Cerumen impaction Essential hypertension Hyperlipidemia Incontinence of feces Inguinal hernia, left LVH (left ventricular hypertrophy) Memory impairment Osteopenia Shoulder pain, bilateral Sleep apnea T wave inversion in EKG Unsteady gait Urinary incontinence, mixed Surgical History Cholecystectomy HERNIA REPAIR Family History Mother Alzheimer's disease Father No problems noted. Social History Smoking/Tobacco Use Status: Never Smoking risk assessment performed?: Yes Alcohol Intake: current Alcohol Intake frequency: holidays/special occasions only Drug use: Never Current gender identity: female Do you feel safe at home: Yes Do you feel safe in your relationship?: Yes Exam <SHADY Strong - Last Filed: 03/13/23 15:36> Narrative Exam Narrative: Patient calm and cooperative, pupils equal round reactive to light and accommodation, lungs clear to auscultation bilaterally, cardiac rate rhythm regular, no abdominal tenderness, no pallor, alert and oriented x4, cranial nerves II through XII intact, negative [id number], negative heel ramirez, negative pronator drift's, strength and sensation intact distally Course <SHADY Strong Last Filed: 03/13/23 15:36> Vital Signs Vital signs: Vital Signs Temperature 36.4 C 03/12/23 08:35 Pulse 56 L 03/12/23 08:35 Respiratory Rate 12 03/12/23 08:35 Blood Pressure 171/78 H 03/12/23 08:35 Pulse Oximetry 99 03/12/23 08:35 Temperature 36.4 C 03/12/23 08:35 Temperature Source Oral 03/12/23 08:35 Pulse 51 L 03/12/23 13:01 Pulse 53 L 03/12/23 13:01 Respiratory Rate 13 03/12/23 13:01 Respiratory Effort Normal 03/12/23 12:00 Respiratory Depth Normal 03/12/23 12:00 Respiratory Pattern Normal 03/12/23 12:00 Blood Pressure 152/62 H 03/12/23 13:01 Blood Pressure Mean 81 03/12/23 13:01 Pulse Oximetry 96 03/12/23 13:01 Oxygen Delivery Method Room Air 03/12/23 08:35 Oxygen Flow Rate 0 03/12/23 08:35 Pain Level 0 03/12/23 08:35 Lab/Test Results Lab/Test Results: Laboratory Tests Range/Units 03/12/23 03/12/23 03/12/23 09:20 09:20 09:20 WBC (4.4-10.8) 10^3/uL 8.13 RBC (3.93-5.22) 10^6/uL 5.54 H Hgb (11.2-15.7) g/dL 15.4 Hct (36.0-46.0) % 46.7 H MCV (80-95) fL 84 MCH (27.0-33.0) pg 27.8 MCHC (32.0-36.0) % 33.0 RDW (11.7-14.6) % 12.7 Plt Count (130-400) 10^3/uL 194 MPV (8.0-11.0) fL 12.7 H Immature Gran % 0.2 Neutrophils % 75.6 Lymphocytes % 19.3 Monocytes % 3.8 Eosinophils % 0.4 Basophils % 0.7 Nucleated RBC % (0.0-0.3) % 0.0 Absolute Neutrophils (1.2-6.7) 10^3/uL 6.14 Absolute Lymphocytes (1.2-3.4) 10^3/uL 1.57 Absolute Monocytes (0.1-0.8) 10^3/uL 0.31 Absolute Eosinophils (0.0-0.7) 10^3/uL 0.03 Absolute Basophils (0.0-0.2) 10^3/uL 0.06 Sodium (136-145) mmol/L 139 Potassium (3.5-5.1) mmol/L 3.6 Chloride (98-107) mmol/L 103 Carbon Dioxide (21.0-32.0) mmol/L 24.8 Anion Gap (3-11) mmol/L 11.2 H BUN (7-18) mg/dL 18 Creatinine (0.55-1.02) mg/dL 0.7 Est GFR (CKD-EPI 2020) (mL/min/1.73m2) 86.83 Glucose (74-106) mg/dL 120 H Calcium (8.5-10.1) mg/dL 8.5 Magnesium (1.8-2.4) mg/dL 1.9 Total Bilirubin (0.2-1.0) mg/dL 0.5 AST (15-37) U/L 23 ALT (14-59) U/L 27 Alkaline Phosphatase (46-116) U/L 123 H Creatine Kinase (26-192) U/L 182 Troponin I (<or=60) ng/L 261 H* Total Protein (6.4-8.2) g/dL 7.5 Albumin (3.4-5.0) g/dL 3.8 Urine Color Urine Clarity Urine pH Ur Specific [place] Urine Protein Urine Ketones Urine Blood Urine Nitrite Urine Bilirubin Urine Urobilinogen Ur Leukocyte Esterase Urine Glucose Range/Units 03/12/23 03/12/23 03/12/23 09:26 09:30 11:50 WBC (4.4-10.8) 10^3/uL RBC (3.93-5.22) 10^6/uL Hgb (11.2-15.7) g/dL Hct (36.0-46.0) % MCV (80-95) fL MCH (27.0-33.0) pg MCHC (32.0-36.0) % RDW (11.7-14.6) % Plt Count (130-400) 10^3/uL MPV (8.0-11.0) fL Immature Gran % Neutrophils % Lymphocytes % Monocytes % Eosinophils % Basophils % Nucleated RBC % (0.0-0.3) % Absolute Neutrophils (1.2-6.7) 10^3/uL Absolute Lymphocytes (1.2-3.4) 10^3/uL Absolute Monocytes (0.1-0.8) 10^3/uL Absolute Eosinophils (0.0-0.7) 10^3/uL Absolute Basophils (0.0-0.2) 10^3/uL Sodium (136-145) mmol/L Potassium (3.5-5.1) mmol/L Chloride (98-107) mmol/L Carbon Dioxide (21.0-32.0) mmol/L Anion Gap (3-11) mmol/L BUN (7-18) mg/dL Creatinine (0.55-1.02) mg/dL Est GFR (CKD-EPI 2020) (mL/min/1.73m2) Glucose (74-106) mg/dL Calcium (8.5-10.1) mg/dL Magnesium (1.8-2.4) mg/dL Total Bilirubin (0.2-1.0) mg/dL AST (15-37) U/L ALT (14-59) U/L Alkaline Phosphatase (46-116) U/L Creatine Kinase (26-192) U/L Troponin I (<or=60) ng/L 222 H* Total Protein (6.4-8.2) g/dL Albumin (3.4-5.0) g/dL Urine Color Cancelled Yellow Urine Clarity Cancelled Clear Urine pH Cancelled 8.5 H Ur Specific [place] Cancelled 1.020 Urine Protein Cancelled Negative Urine Ketones Cancelled Trace H Urine Blood Cancelled Negative Urine Nitrite Cancelled Negative Urine Bilirubin Cancelled Negative Urine Urobilinogen Cancelled 0.2 Ur Leukocyte Esterase Cancelled Negative Urine Glucose Cancelled Negative Sign Out <SHADY Strong - Last Filed: 03/13/23 15:36> Sign Out Data: Sign Out Comment: pending [facility], neurosurgery Last updated by Aga Belcher PA at 03/12/23 16:04
--- NOTE | 2023-03-12 15:30 | DI.MRI_ITS ---
Exam(s) MR ANGIO BRAIN WO EXAM: MR ANGIO BRAIN WO CLINICAL HISTORY: aneurysm [place] TECHNIQUE: Performed on 1.5 millie unit [id number] sequence COMPARISON: MR MR BRAIN WO from 09/09/2022 FINDINGS: ANTERIOR CIRCULATION: Both internal carotid arteries are patent in the skull base. Right intra cavernous internal carotid artery is patent. On the left side there is a saccular aneurysm off the lateral side of the left ICA at this level which measures approximately 12 mm AP by 10 mm wide. Both A1 segments are patent as are the anterior cerebral arteries. There is no evidence of aneurysm of the anterior communicating artery. Middle cerebral arteries are patent. No significant stenosis. No aneurysms in the MCAs. POSTERIOR CIRCULATION: At the skull base the basilar artery is formed by both vertebral arteries. Ba silar artery ascends with normal luminal diameter. Distally it gives off superior cerebellar arterie s and above this level terminates as patent left posterior cerebral artery. The right posterior cere bral artery is fed by a posterior communicating artery on the right side of the [id number]-[id number]-Yjkrzy. Th ere is no aneurysm of the tip of the basilar artery. IMPRESSION: 1. There is a 12 x 10 mm saccular aneurysm arising off of the lateral aspect of the intracavernous as pect of the left ICA. Recommend appropriate referral and further study with CT angiography. 2. No other aneurysms evident. 3. No significant stenosis nor occlusions. 4. There is persistent origin of the right posterior cerebral artery. DATA REPOSITORY:
[2023-03-12] MEDS: Gadoterate meglumine 20 ML VIAL 12 ML IVP (16:28)
--- NOTE | 2023-03-12 16:50 | DI.MRI_ITS ---
Exam(s) MR BRAIN WO/W EXAM: MR BRAIN WO/W CLINICAL HISTORY: Aneurysm in the [place] further evaluatio TECHNIQUE: Multiplanar multisequence MRI of the brain was performed. Both noninfused and contrast i nfused sequences were performed. IV Contrast injected was cc Dotarem. COMPARISON: MR MR ANGIO BRAIN WO from 03/12/[address] BRAIN NECK CTA from 03/12/2023 FINDINGS: CEREBRAL PARENCHYMA: No evidence of intracranial hemorrhage, mass effect nor shift of midline structu re. No extraaxial fluid collections. Ventricles are not enlarged nor shifted. There is abundant bilateral periventricular signal abnormality consistent chronic small vessel diseas e. No evidence restricted diffusion at these locations suggest ischemic event. There is a small foc us of susceptibility artifact in the left cerebellar hemisphere and right frontal lobe most probably related to remote microhemorrhage at these locations. There is no evidence of acute hemorrhage. There are no ring enhancing lesions in the brain. However, there is enhancing aneurysm off the later al aspect of the left intracavernous internal carotid artery, appearing saccular. PITUITARY GLAND: No mass nor parasellar abnormality. No obvious abnormality in the cavernous sinuses. FLOW VOIDS: Aneurysm as described above. PARANASAL SINUSES: The visualized paranasal sinuses appear unremarkable. ORBITS: No obvious abnormal findings. IMPRESSION: 1. There is abundant bilateral periventricular signal abnormality consistent with chronic small vesse l ischemic changes. No evidence of acute infarct. 2. Susceptibility foci in the right frontal lobe and left cerebellar hemisphere consistent with remot e microhemorrhages at these locations. There is no evidence of acute intracranial hemorrhage. 3. Prominent saccular aneurysm of the left internal carotid artery cavernous-supraclinoid aspect. S ee separate MR angiography report. DATA REPOSITORY:
[2023-03-12 17:21] LABS: Troponin I 229 ng/L (<or=60)
[2023-03-12] MEDS: Normal Saline 250 ML IV (17:30)
--- NOTE | 2023-03-12 17:57 | DI.VRAD_ITS ---
PROCEDURE INFORMATION: Exam: MRA Head Without Contrast; Arteriography Exam date and time: 03/12/2023 4:02 PM Age: 83 years old Clinical indication: Vertigo TECHNIQUE: Imaging protocol: Magnetic resonance angiography head without contrast. Ofdy-hv-cxtkcf (TOF) technique was utilized for this exam. Exam focused on the arteries. COMPARISON: CT BRAIN NECK CTA 03/12/2023 10:56 AM FINDINGS: ANTERIOR CIRCULATION: Right internal carotid artery: Intracranial segment is patent with no significant stenosis. No aneurysm. Right middle cerebral artery: No occlusion or significant stenosis. No aneurysm. Right anterior cerebral artery: No occlusion or significant stenosis. No aneurysm. Left internal carotid artery: There is a 1.1 x 0.9 cm saccular aneurysm at the supraclinoid segment of the left ICA. The aneurysm is laterally oriented. Left middle cerebral artery: No occlusion or significant stenosis. No aneurysm. Left anterior cerebral artery: No occlusion or significant stenosis. No aneurysm. POSTERIOR CIRCULATION: Right vertebral artery: No occlusion or significant stenosis. No aneurysm. Left vertebral artery: No occlusion or significant stenosis. No aneurysm. Basilar artery: No occlusion or significant stenosis. No aneurysm. Right posterior cerebral artery: There is a persistent origin of the right FLOOR SCRUBBER. No occlusion or significant stenosis. No aneurysm. Left posterior cerebral artery: No occlusion or significant stenosis. No aneurysm. IMPRESSION: 1. 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 2. No significant stenosis or occlusion. Dictated and Authenticated by: Mimi Cabrera MD. Ordering:ZHAO Yung MD
--- NOTE | 2023-03-12 18:07 | DI.VRAD_ITS ---
PROCEDURE INFORMATION: Exam: MR Head Without and With Contrast Exam date and time: 03/12/2023 4:20 PM Age: 83 years old Clinical indication: Other: Dizziness TECHNIQUE: Imaging protocol: Magnetic resonance imaging of the head without and with contrast. Contrast material: DOTAREM; Contrast volume: 12 ml; Contrast route: INTRAVENOUS (IV); COMPARISON: MR ANGIO BRAIN WO 03/12/2023 4:02 PM FINDINGS: Brain: No acute infarct. No acute intracranial hemorrhage, mass effect or midline shift.There are scattered foci of T2 flair signal abnormality in the periventricular and subcortical white matter, which may be on the basis of chronic microvascular ischemic disease. There is a focus of susceptibility artifact in the left cerebellar hemisphere and right frontal lobe, likely secondary to remote microhemorrhage. No intracranial mass or abnormal enhancement. Cerebral ventricles: No ventriculomegaly. Bones/joints: Unremarkable. Paranasal sinuses: Normal as visualized. No acute sinusitis. Mastoid air cells: There is mild fluid in the right mastoid air cells. Orbital cavities: Unremarkable. Soft tissues: Unremarkable. IMPRESSION: 1. No evidence of acute infarct or acute intracranial hemorrhage. 2. Mild right mastoid air cell effusion. Dictated and Authenticated by: Mimi Cabrera MD. Ordering:JANIS Leon MD
--- NOTE | 2023-03-12 19:52 | W.PM.HP.N ---
Date of service: 03/12/23 Time of Service: 22:58 Assessment and Plan Assessment and plan (1) Vertigo: Start date: 03/12/23 Status: Acute Assessment and plan: This is an 83-year lady who had acute onset of vertiginous symptoms with a history of vertigo in the past according to her daughter. Patient does not recall having this problem in the past. At the time of my interview the patient felt better after some fluid with mild dehydration diagnosed in the ED. Her creatinine was not abnormal and she was not tachycardic even though she had missed a day or 2 of her usual meds including diltiazem. She was put on low-dose meclizine and this will be continued as needed. Imaging was unrevealing except for a incidental finding of a left internal carotid artery saccular aneurysm which neurosurgery stated appears stable. She also had elevations in her troponins were trending downward and at first cardiology had recommended heparin but neurosurgery did not recommend heparinization. Patient is on subcu heparin for DVT prophylaxis while being observed on telemetry. She will be evaluated with an echocardiogram in the morning and follow-up labs trending troponins with PT and OT to clear for home discharge if stable. Family does not want aggressive care if acute decompensation. She is a DNR/DNI. (2) Dehydration: Start date: 03/12/23 Status: Acute Assessment and plan: Mild with decreased intake according to ED provider and appearing to feel better with gentle hydration. IV hydration will not be continued and patient is eating and drinking well with advancing diet. Follow-up lab in the morning. (3) Elevated troponin level not due to acute coronary syndrome: Start date: 03/12/23 Status: Acute Assessment and plan: Patient has had elevated troponins in the past as well and does have nitroglycerin sublingually on her medication list though she had a clean coronary artery catheterization in 2012. There have been no recent studies with the last echocardiogram in 2020. Trend troponins and monitor on telemetry. (4) Hypertension: Status: Chronic Assessment and plan: Patient is mildly hypertensive off enalapril and long-acting Cardizem with Cardizem to be restarted at split dosing and enalapril held for now. She does not have any evidence of ongoing cardiac ischemia and was already on diltiazem with bradycardia. I am hesitant to start on beta-shukri which may be preferable to diltiazem with her question of advancing coronary artery disease. This can be rediscussed with hospitalist team in the morning and echocardiogram will be updated. (5) Alzheimer's dementia without behavioral disturbance: Status: Chronic Assessment and plan: On no medical therapy with advancing disease. She does live alone and appears to function fairly well with close supervision by her daughters who live nearby. Continue to monitor. (6) Internal carotid aneurysm: Status: Chronic Assessment and plan: Incidental finding of large saccular aneurysm over the cavernous portion of the left internal carotid artery with neurosurgery recommending no interventions at this time. Patient's daughters also want nonaggressive care. History of Present Illness History of Present Illness Chief Complaint: Acute onset of dizziness with world spinning and associated nausea Narrative: This is an 83-year-old female patient who lives alone but has progressive dementia without behavioral abnormalities and watched closely by her daughters who are both dual power of speech correction consultant's for the patient. 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 She did not feel as if she was going to pass out and did not report falling. She was brought to the ED for evaluation and was thought to be slightly dehydrated not having drunk fluid during the day and had full evaluation for possible stroke with CT and CTA of the head and neck with follow-up MRI/MRA of the brain revealing no acute strokes but a stable cerebral aneurysm which was reviewed with neurosurgery. She also had an elevated troponin which was trending downward and a left frontal branch block on EKG which was uninterpretable. She was not having chest pain or shortness of breath and it was chosen not to do heparinization because of her aneurysm and this was discussed with cardiology. Both specialty consultations were at [facility] [place]. The patient gives a vague history and cannot recall details of timing of the day but does describe things occurring in the morning when she had her chores. She also has not been taking her usual medications recently which include an LAURIE inhibitor as well as diltiazem with a history of a tachyarrhythmia in the past but not on anticoagulation. The patient did have a clean cardiac catheterization in 2012 and her last echocardiogram was in March 2021 which revealed preserved left ventricular ejection fraction and no wall motion abnormalities. Reviewing her wishes with family she is a DNR/DNI and a COLST form will be filled out in the morning. Review of Systems Narrative: 13 point review of systems otherwise unrevealing or stable. Patient denies any peripheral edema or weight gain and is very active without restrictions. PFSH All Active Problems (Updated 03/12/23 @ 23:31 by Peter Mosley) Internal carotid aneurysm (Chronic) Elevated troponin level not due to acute coronary syndrome (Acute) Vertigo (Acute) Dehydration (Acute) Nail dystrophy (Acute) Irregular bowel habits (Acute) Diarrhea (Acute) Elevated LFTs (Acute) Lyme disease (Acute) Heart murmur (Acute) Dizziness (Acute) Hypertension (Chronic) History of adverse reaction to anesthesia (Acute) Abnormal weight loss (Acute) Basal cell carcinoma (Chronic) Incarcerated left inguinal hernia (Acute) Cognitive changes (Acute) Hypertrophy of nail (Acute) Alzheimer's dementia without behavioral disturbance (Chronic) Vascular dementia (Acute) Medical History Cerumen impaction Essential hypertension Hyperlipidemia Incontinence of feces Inguinal hernia, left LVH (left ventricular hypertrophy) Memory impairment Osteopenia Shoulder pain, bilateral Sleep apnea T wave inversion in EKG Unsteady gait Urinary incontinence, mixed Surgical History Cholecystectomy HERNIA REPAIR Family History Mother Alzheimer's disease Father No problems noted. Social History Smoking/Tobacco Use Status: Never Smoking risk assessment performed?: Yes Alcohol Intake: current Alcohol Intake frequency: holidays/special occasions only Drug use: Never Current gender identity: female Do you feel safe at home: Yes Do you feel safe in your relationship?: Yes Meds Allergies and Home Medications Allergies Allergy/AdvReac Type Severity Reaction Status Date / Time latex Allergy Mild rash Unverified 01/06/23 17:14 propoxyphene HCl AdvReac Severe profound Unverified 03/12/23 09:07 [From Darvon Compound-65] hypotension antibiotic ointments AdvReac Mild rash Uncoded 01/06/23 17:14 Home Medications Medication Instructions Recorded Confirmed Type diltiazem HCl 180 mg 180 mg PO HS 07/04/13 03/12/23 History capsule,extended release 24 hr nitroglycerin 0.4 mg sublingual 0.4 mg sublingual Q5 MIN PRN X3 10/22/17 03/12/23 Rx tablet (Nitrostat) PRN #100 tabs ibuprofen 200 mg tablet 400 mg PO Q6H PRN 05/09/20 03/12/23 History benazepril 40 mg tablet 40 mg PO DAILY 01/06/23 03/12/23 History Exam Narrative Exam Narrative: General: Patient appears appropriate for age but is mildly confused especially when eliciting history. She is alert and oriented at least to person and place. She is in no acute distress and has no complaints of vertiginous symptoms at the time of my interview. HEENT: Normocephalic, eyes with pupils equal and react light symmetrically, extraocular movement intact and sclera anicteric. There may be mild nystagmus to far right gaze with fast beat to the right and drifting leftward. Oropharynx with moist mucosa. Neck: Supple without JVD and no auscultated bruits. Back: Normal posture without CVA tenderness. Lungs: Fair aeration clear to auscultation and percussion. Breast: Exam deferred. Heart: Bradycardic rate with normal rhythm, 3/6 holosystolic murmur over left lower sternal border and apex. Abdomen: Normal contour, soft and nontender to palpation with no palpable hepatosplenomegaly. Bowel sounds positive all quadrants. Genitalia/rectal: Exam deferred. Extremities: Without clubbing, cyanosis or pitting edema. Fair capillary refill. No joint swelling with fair range of motion of most joints. Skin: Normal color, warm and dry. Actinic changes over sun exposed areas. Neuro: Cranial nerves II through XII grossly intact, no focalizing motor deficits. No tremor. No Babinski's. Psych: Normal affect and mood. No abnormal thought processes. Remote memory intact but short-term memory has deficits especially recalling events of the day. Results Imaging Imaging Studies: Exam: MR Head Without and With Contrast Exam date and time: 03/12/2023 4:20 PM Age: 83 years old Clinical indication: Other: Dizziness TECHNIQUE: Imaging protocol: Magnetic resonance imaging of the head without and with contrast. Contrast material: DOTAREM; Contrast volume: 12 ml; Contrast route: INTRAVENOUS (IV);? COMPARISON: MR ANGIO BRAIN WO 03/12/2023 4:02 PM FINDINGS: Brain: No acute infarct. No acute intracranial hemorrhage, mass effect or midline shift.There are scattered foci of T2 flair signal abnormality in the periventricular and subcortical white matter, which may be on the basis of chronic microvascular ischemic disease. There is a focus of susceptibility artifact in the left cerebellar hemisphere and right frontal lobe, likely secondary to remote microhemorrhage.? No intracranial mass or abnormal enhancement. Cerebral ventricles: No ventriculomegaly. Bones/joints: Unremarkable. Paranasal sinuses: Normal as visualized. No acute sinusitis. Mastoid air cells: There is mild fluid in the right mastoid air cells. Orbital cavities: Unremarkable. Soft tissues: Unremarkable. IMPRESSION: 1. ? No evidence of acute infarct or acute intracranial hemorrhage. 2. ? Mild right mastoid air cell effusion. Exam: MRA Head Without Contrast; Arteriography Exam date and time: 03/12/2023 4:02 PM Age: 83 years old Clinical indication: Vertigo TECHNIQUE: Imaging protocol: Magnetic resonance angiography head without contrast. Ejsn-rp-tazafu (TOF) technique was utilized for this exam. Exam focused on the arteries. COMPARISON: CT BRAIN NECK CTA 03/12/2023 10:56 AM FINDINGS: ANTERIOR CIRCULATION: Right internal carotid artery: Intracranial segment is patent with no significant stenosis. No aneurysm. Right middle cerebral artery: No occlusion or significant stenosis. No aneurysm. Right anterior cerebral artery: No occlusion or significant stenosis. No aneurysm. Left internal carotid artery: There is a 1.1 x 0.9 cm saccular aneurysm at the supraclinoid segment of the left ICA. The aneurysm is laterally oriented.? Left middle cerebral artery: No occlusion or significant stenosis. No aneurysm. Left anterior cerebral artery: No occlusion or significant stenosis. No aneurysm. POSTERIOR CIRCULATION: Right vertebral artery: No occlusion or significant stenosis. No aneurysm. Left vertebral artery: No occlusion or significant stenosis. No aneurysm. Basilar artery: No occlusion or significant stenosis. No aneurysm. Right posterior cerebral artery: There is a persistent origin of the right SENIOR OPERATOR. No occlusion or significant stenosis. No aneurysm. Left posterior cerebral artery: No occlusion or significant stenosis. No aneurysm. IMPRESSION: 1. ? 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 2. ? No significant stenosis or occlusion. CT BRAIN ? NECK CTA EXAM: ? CT BRAIN ? NECK CTA CLINICAL HISTORY: ? dizziness. ? TECHNIQUE:? Imaging Protocol:? Axial CT angiography was performed with multi-slice acquisition and multi-planar and 3D reconstructions. CONTRAST MATERIAL:? Intravenous: Omnipaque 350 Contrast volume:structured data in ml COMPARISON:? CT ABD ? PELVIS WITH CONTRAST from 07/04/2013 MR MR BRAIN WO from 09/09/2022 FINDINGS: CT Head W/O and W contrast: Ventricles and Extra axial spaces: Normal in size and morphology for the patient's age. Hemorrhage: None. Cerebral parenchyma: Mild atrophy consistent with the patient's age.? White matter changes of small vessel disease, roughly stable from prior MRI.? Midline shift: None. Brainstem/Cerebellum: Normal. Calvarium: Normal. Visualized Paranasal sinuses/Mastoids: Clear. Soft Tissues: Unremarkable. Enhancement: Normal. CTA Brain W: Internal Carotid Arteries: Petrous: Normal. Cavernous: Large aneurysm at the anterior genu of cavernous portion of the left internal carotid artery measuring 9 millimeters transverse by 16 millimeters in length.? The right internal carotid artery shows calcification but no significant stenosis. Cerebral: Normal. Middle Cerebral Arteries: Right:? No aneurysm, occlusion or significant stenosis. Left:? No aneurysm, occlusion or significant stenosis. Anterior Cerebral Arteries: Right:? No aneurysm, occlusion or significant stenosis. Left:? No aneurysm, occlusion or significant stenosis. Posterior cerebral Arteries: Right:? No aneurysm, occlusion or significant stenosis. Left:? No aneurysm, occlusion or significant stenosis. Vertebral Arteries: Right:? No aneurysm, occlusion or significant stenosis. Left:? No aneurysm, occlusion or significant stenosis. Basilar Artery:? No aneurysm, occlusion or significant stenosis. CTA Neck W: Common Carotid: Right:? No dissection, occlusion or significant stenosis. Left:? No dissection, occlusion or significant stenosis. External Carotid: Right:? No dissection, occlusion or significant stenosis. Left:? No dissection, occlusion or significant stenosis. Internal Carotid: Right: Calcific plaque at the proximal internal carotid artery.? No dissection, occlusion or significant stenosis. Left: Calcific plaque at the proximal internal carotid artery.? No dissection, occlusion or significant stenosis. Vertebral Artery: Right:? No dissection, occlusion or significant stenosis. Left:? No dissection, occlusion or significant stenosis. Lung Apices: Normal. Bones: Degenerative changes in the spine.? No acute abnormality. Soft Tissues: Normal. IMPRESSION: 1. CTA [id number]: Large aneurysm involving the anterior genu of the cavernous portion of the left internal carotid artery, measuring 9 x? 9 x [address] head: White matter changes of small vessel disease.? No acute hemorrhage or infarct 3. CTA neck: Calcific plaque at the proximal internal carotid arteries without significant stenosis. 4. Findings called to Aga Belcher of the emergency department Labs 03/12/23 09:20 03/12/23 09:20 Labs: Laboratory Results - last 24 hr 03/12/23 03/12/23 03/12/23 09:20 09:20 09:20 WBC 8.13 RBC 5.54 H Hgb 15.4 Hct 46.7 H MCV 84 MCH 27.8 MCHC 33.0 RDW 12.7 Plt Count 194 MPV 12.7 H Immature Gran % 0.2 Neutrophils % 75.6 Lymphocytes % 19.3 Monocytes % 3.8 Eosinophils % 0.4 Basophils % 0.7 Nucleated RBC % 0.0 Absolute Neutrophils 6.14 Absolute Lymphocytes 1.57 Absolute Monocytes 0.31 Absolute Eosinophils 0.03 Absolute Basophils 0.06 Sodium 139 Potassium 3.6 Chloride 103 Carbon Dioxide 24.8 Anion Gap 11.2 H BUN 18 Creatinine 0.7 Est GFR (CKD-EPI 2020) 86.83 Glucose 120 H Calcium 8.5 Magnesium 1.9 Total Bilirubin 0.5 AST 23 ALT 27 Alkaline Phosphatase 123 H Creatine Kinase 182 Troponin I 261 H* Total Protein 7.5 Albumin 3.8 Urine Color Urine Clarity Urine pH Ur Specific [place] Urine Protein Urine Ketones Urine Blood Urine Nitrite Urine Bilirubin Urine Urobilinogen Ur Leukocyte Esterase Urine Glucose 03/12/23 03/12/23 03/12/23 09:26 09:30 11:50 WBC RBC Hgb Hct MCV MCH MCHC RDW Plt Count MPV Immature Gran % Neutrophils % Lymphocytes % Monocytes % Eosinophils % Basophils % Nucleated RBC % Absolute Neutrophils Absolute Lymphocytes Absolute Monocytes Absolute Eosinophils Absolute Basophils Sodium Potassium Chloride Carbon Dioxide Anion Gap BUN Creatinine Est GFR (CKD-EPI 2020) Glucose Calcium Magnesium Total Bilirubin AST ALT Alkaline Phosphatase Creatine Kinase Troponin I 222 H* Total Protein Albumin Urine Color Cancelled Yellow Urine Clarity Cancelled Clear Urine pH Cancelled 8.5 H Ur Specific [place] Cancelled 1.020 Urine Protein Cancelled Negative Urine Ketones Cancelled Trace H Urine Blood Cancelled Negative Urine Nitrite Cancelled Negative Urine Bilirubin Cancelled Negative Urine Urobilinogen Cancelled 0.2 Ur Leukocyte Esterase Cancelled Negative Urine Glucose Cancelled Negative 03/12/23 16:54 WBC RBC Hgb Hct MCV MCH MCHC RDW Plt Count MPV Immature Gran % Neutrophils % Lymphocytes % Monocytes % Eosinophils % Basophils % Nucleated RBC % Absolute Neutrophils Absolute Lymphocytes Absolute Monocytes Absolute Eosinophils Absolute Basophils Sodium Potassium Chloride Carbon Dioxide Anion Gap BUN Creatinine Est GFR (CKD-EPI 2020) Glucose Calcium Magnesium Total Bilirubin AST ALT Alkaline Phosphatase Creatine Kinase Troponin I 229 H* Total Protein Albumin Urine Color Urine Clarity Urine pH Ur Specific [place] Urine Protein Urine Ketones Urine Blood Urine Nitrite Urine Bilirubin Urine Urobilinogen Ur Leukocyte Esterase Urine Glucose Last Vital Signs Temp 36.4 C 03/12/23 08:35 Pulse 58 L 03/12/23 19:47 Resp 16 03/12/23 19:47 BP 149/86 H 03/12/23 19:47 Pulse Ox 95 03/12/23 19:47 Time Spent Time spent with Patient: >75 minutes Time was spent: preparing to see the patient(eg.review tests), obtaining and/or reviewing separately otained hiistory, ordering medications,tests, procedures, referring, communicating with other health personal care worker, indepentently interpreting results and care coordination
[2023-03-12] MEDS: Meclizine 12.5 MG TAB PO (20:14)
[2023-03-12] MEDS: Heparin 5,000 UNITS/ML VIAL 5000 UNITS SC (21:58)
[2023-03-13 00:42] VITALS: PULSE 45
[2023-03-13 01:33] LABS: Troponin I 223 ng/L (<or=60)
[2023-03-13 02:58] VITALS: BP 122/55; PULSE 49; RESP 16; TEMP 36.4; O2SAT 97
[2023-03-13] MEDS: Heparin 5,000 UNITS/ML VIAL 5000 UNITS SC ×2 (05:39→13:45)
[2023-03-13] MEDS: Meclizine 12.5 MG TAB PO ×2 (05:59→08:00)
[2023-03-13 06:59] LABS: HCT 45.6 % (36.0-46.0); MCH 27.9 pg (27.0-33.0); MCHC 32.9 % (32.0-36.0); MCV 85 fL (80-95); MPV 12.3 fL (8.0-11.0); Platelet Count 215 10^3/uL (130-400); RBC 5.37 10^6/uL (3.93-5.22); RDW 13.1 % (11.7-14.6); RDW-SD 40.6 fL; WBC 6.75 10^3/uL (4.4-10.8)
[2023-03-13 07:20] VITALS: BP 154/72; PULSE 53; RESP 14; TEMP 36.2; O2SAT 96
[2023-03-13 07:28] LABS: ALT 25 U/L (14-59); AST 23 U/L (15-37); Albumin 3.5 g/dL (3.4-5.0); Alkaline Phosphatase 110 U/L (46-116); BUN 20 mg/dL (7-18); Bilirubin, Total 0.5 mg/dL (0.2-1.0); CREATININE 0.8 mg/dL (0.55-1.02); Calcium 8.8 mg/dL (8.5-10.1); Chloride 106 mmol/L (98-107); Estimated GFR 73.98 (mL/min/1.73m2); Glucose 96 mg/dL (74-106); Magnesium 2.3 mg/dL (1.8-2.4); Potassium 3.6 mmol/L (3.5-5.1); Sodium 143 mmol/L (136-145)
[2023-03-13 07:38] LABS: Troponin I 253 ng/L (<or=60)
[2023-03-13] MEDS: dilTIAZem 30 MG TAB 60 MG PO ×2 (08:00→13:45)
[2023-03-13] MEDS: Benazepril 10 MG TAB 40 MG PO (08:00)
--- NOTE | 2023-03-13 08:00 | DI.US_ITS ---
APPROVED REPORT EXAM: Comprehensive 2D, Doppler, and color-flow Echocardiogram Patient Location: Out-Patient Electronic Console Display Operator: Corrina Hutchison RDCS (AE) Indications: Elevated troponin Other Information Study Quality: Fair. Technically limited study due to body habitus. Conclusion Normal left ventricular chamber size. There is moderate concentric left ventricular hypertrophy with disproportionate upper septal thickening. EF is 55%. There are no segmental wall motion abnormalit ies There is left ventricular outflow tract obstruction, mean gradient of 38 mmHg Normal right ventricular size and systolic function Both atria are normal in size Aortic valve is sclerotic. Number of leaflets cannot be accurately determined. Mean gradient is 12 mmHg. There is no aortic regurgitation Severe mitral annular calcification. Moderate eccentric mitral regurgitation Estimated right ventricular systolic pressure is 29 mmHg Wall motion Left Ventricle The left ventricle is normal size. The overall left ventricular systolic function appears normal. Mod erate concentric left ventricular hypertrophy Disproportionate upper septal thickening. There is norm al LV segmental wall motion. There is no ventricular septal defect visualized. LVEF is 55%. Right Ventricle The right ventricle is normal size. The right ventricular systolic function is normal. The RVSP is 28 .6_ mmHg. Atria The left atrium size is normal. The right atrium size is normal. The interatrial septum is intact wit h no evidence for an atrial septal defect. Aortic Valve Aortic valve is calcified. Number of aortic valve leaflets could not be assessed. mean gradient is 12 mmHg No aortic regurgitation is present. Mitral Valve Severe mitral annular calcification. No evidence of mitral valve stenosis. Moderate mitral regurgitat ion. Mitral regurgitation jet is eccentrically directed. Tricuspid Valve The tricuspid valve is normal in structure. There is no tricuspid valve stenosis. Trace tricuspid reg urgitation. Pulmonic Valve Pulmonic valve is not well visualized. There is no pulmonic valvular stenosis. There is no pulmonic v alvular regurgitation. Great Vessels The aortic root is normal in size. Ascending aorta is not well visualized. Aortic arch is not well vi sualized. IVC is normal in size and collapses >50% with inspiration. 2D Dimensions IVSD d PLAX 1.63 cm F: 0.6-1.0 LV Vol A2C d MOD 138.6 mL LVPW d PLAX 1.21 cm F: 0.6 - 1.0 LV Vol A4C d MOD 111.4 mL LVID d PLAX 4.23 cm F: 3.8 - 5.2 LA vol/ BSA A2C s A-L 29.2 mL/m2 LVDs 3.00 cm F: 2.2 - 3.5 LA vol/ BSA A4C s A-L 30.3 mL/m2 Ao Root d 2.90 cm F: 2.7 - 3.3 LA Vol/ BSA Biplane s A-L 32.0 mL/m2 RA Area A4C 11.14 cm2 LA Area A4C s MOD 15.59 cm2 RA Vol/ BSA A4C s A-L 16.0 mL/m2 LA Area A2C s MOD 16.47 cm2 LV EF Teichholz 55.7 % LV EF A4C MOD 55.0 % LVEF (Huynh's) 55.95 % F: 54 - 74 LV EF A2C MOD 55.5 % LV Volume 103.11 mL F: 46 - 106 LV EF Biplane MOD 55.9 % LV Volume Index 62.11 mL/m2 F: 29 - 61 SV 72.01 mL LV Vol Biplane MOD 128.7 mL SV Index 43.37 mL/m2 FS 28.70 % M-Mode TAPSE 3.16 cm (M/F) >1.7 LV Diastology MV E' medial 0.033 (>0.07 m/s) E/A Ratio 0.7 LV E/e MED 29.80 (<14) MV E Vmax 1.00 (0.4-1.3 m/s) MV E' lateral 0.030 (>0.1 m/s) MV A Vmax 1.40 (0.4-1.3 m/s) LV E/e LAT 32.85 (<14) MV E/A Ratio 0.70 MV E/E' medial 29.82 MV E/E' lateral 32.86 Aortic Valve LVOT Area 3.68 cm2 AoV Area Vmax 6.78 cm2 LVOT Vmax 4.35 m/s AoV Area/ BSA (Vmax) 4.09 cm2/m2 LVOT Mean Jose. 2.87 m/s BRIAN Mean Jose. 6.51 cm2 LVOT Peak Grad 75.7 mmHg BRIAN Mean Jose. Index 3.92 cm2/m2 LVOT Mean Grad 38.0 mmHg LVOT VTI 0.904 m LVOT Diam s 2.15 cm AoV Vmax 2.36 m/s Velocity Ratio 1.84 AoV Mean Jose. 1.62 m/s AoV Peak Grad 22.3 mmHg LVOT SV 332.95 mL AoV Mean Grad 11.9 mmHg AoV VTI 0.498 m AoV Area VTI 6.69 cm2 AoV Area/ BSA (VTI) 4.03 cm/m2 Mitral Valve MV DT 419 (160-240 msec) MV PHT 121 msec MV Area PHT 1.81 cm2 MV VTI 0.543 m MV Area VTI 6.14 (4.0-6.0 cm2) Pulmonary Valve PV Vmax 1.07 (0.5-1.5 m/s) RVOT Peak Gr. 1.34 mmHg PV Peak Grad 4.5 mmHg RVOT Mean Gr. 0.75 mmHg PV Mean Grad 2.3 mmHg RVOT VTI 0.139 m PV VTI 0.237 m RVOT Vmax 0.58 m/s Tricuspid Valve TR Peak Grad 25.6 mmHg TR Vmax 2.53 m/s RA Pressure 3.00 mmHg RVSP (TR) 28.6 mmHg
--- NOTE | 2023-03-13 10:02 | INITIAL_ITS ---
Date of service: 03/13/23 Time of Service: 10:02 Care Management Initial Assmt Initial Assessment REASON FOR HOSPITALIZATION:: Acute onset of dizziness with world spinning and associated nausea Narrative PREVIOUS FUNCTIONAL STATUS/SOCIAL/FAMILY SUPPORTS:: Mey lives alone in [place], [place]. Per pt, she drives and is active and independent at baseline. She has two daughters who live nearby and supportive. 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 She has a dog, a cat, and likes to ride her horses. CURRENT FUNCTIONAL STATUS:: Mey was sitting in her recliner, reading a book when CM met with her. Per pt, her Daughter Ammon lives about a 1/2 mile from her house and is available to help her after discharge. Marta will also be available to help following discharge, but is not home as much. ADVANCE DIRECTIVES:: None on file at [facility] or [place] registry Has patient been provided with info about the portal/API?: Yes Did the patient sign up for the portal?: No CODE STATUS:: DNR/DNI INSURANCE COVERAGE / FINANCIAL ISSUES:: AARP MCR Medicare CURRENT HOME/COMMUNITY SERVICES/EQUIPMENT:: None PRIMARY CARE PHYSICIAN:: Marbella Serrato POTENTIAL DISCHARGE NEEDS:: Evaluations for further needs. PATIENT/FAMILY EDUCATION NEEDS:: Review discharge instructions regarding activity levels and medications, discussion of self care needs. ANTICIPATED BARRIERS TO DISCHARGE:: None identified TRANSPORTATION:: Via private vehicle by family. PLAN:: Anticipate, Mey will return home when medically cleared with [facility] services, if indicated. She will be driven home by family via private vehicle. She will follow up with community providers and her discharge plan of care. CM will continue to follow. [facility] All Active Problems (Updated 03/12/23 @ 23:31 by Peter Mosley) Internal carotid aneurysm (Chronic) Elevated troponin level not due to acute coronary syndrome (Acute) Vertigo (Acute) Dehydration (Acute) Nail dystrophy (Acute) Irregular bowel habits (Acute) Diarrhea (Acute) Elevated LFTs (Acute) Lyme disease (Acute) Heart murmur (Acute) Dizziness (Acute) Hypertension (Chronic) History of adverse reaction to anesthesia (Acute) Abnormal weight loss (Acute) Basal cell carcinoma (Chronic) Incarcerated left inguinal hernia (Acute) Cognitive changes (Acute) Hypertrophy of nail (Acute) Alzheimer's dementia without behavioral disturbance (Chronic) Vascular dementia (Acute) Medical History Cerumen impaction Essential hypertension Hyperlipidemia Incontinence of feces Inguinal hernia, left LVH (left ventricular hypertrophy) Memory impairment Osteopenia Shoulder pain, bilateral Sleep apnea T wave inversion in EKG Unsteady gait Urinary incontinence, mixed Surgical History Cholecystectomy HERNIA REPAIR Family History Mother Alzheimer's disease Father No problems noted. Social History Smoking/Tobacco Use Status: Never Smoking risk assessment performed?: Yes Alcohol Intake: current Alcohol Intake frequency: holidays/special occasions only Drug use: Never Current gender identity: female Do you feel safe at home: Yes Do you feel safe in your relationship?: Yes
[2023-03-13 10:53] VITALS: BP 125/74; PULSE 67; RESP 12; TEMP 36.7; O2SAT 97
--- NOTE | 2023-03-13 11:19 | W.PM.PROGNOT ---
Date of Service Date of service: 03/13/23 Time of Service: 11:19 Assessment and Plan Assessment and plan (1) Vertigo: Status: Acute Assessment and plan: echocardiogram pending, follow-up labs trending troponins PT and OT consulted. Family does not want aggressive care if acute decompensation. She is a DNR/DNI. (2) Dehydration: Status: Acute Assessment and plan: Mild with decreased intake according to ED provider and appearing to feel better with gentle hydration. IV hydration will not be continued and patient is eating and drinking well with advancing diet. Follow-up lab in the morning. (3) Elevated troponin level not due to acute coronary syndrome: Status: Acute Assessment and plan: Patient has had elevated troponins in the past as well and does have nitroglycerin sublingually on her medication list though she had a clean coronary artery catheterization in 2012. There have been no recent studies with the last echocardiogram in 2020. Trend troponins and monitor on telemetry. (4) Hypertension: Status: Chronic Assessment and plan: Patient is mildly hypertensive off enalapril and long-acting Cardizem with Cardizem to be restarted at split dosing and enalapril held for now. She does not have any evidence of ongoing cardiac ischemia and was already on diltiazem with bradycardia. I am hesitant to start on beta-shukri which may be preferable to diltiazem with her question of advancing coronary artery disease. This can be rediscussed with hospitalist team in the morning and echocardiogram will be updated. (5) Alzheimer's dementia without behavioral disturbance: Status: Chronic Assessment and plan: On no medical therapy with advancing disease. She does live alone and appears to function fairly well with close supervision by her daughters who live nearby. Continue to monitor. (6) Internal carotid aneurysm: Status: Chronic Assessment and plan: Incidental finding of large saccular aneurysm over the cavernous portion of the left internal carotid artery with neurosurgery recommending no interventions at this time. Patient's daughters also want nonaggressive care. Objective Last Vital Signs Temp 36.7 C 03/13/23 10:53 Pulse 67 03/13/23 10:53 Resp 12 03/13/23 10:53 BP 125/74 03/13/23 10:53 Pulse Ox 97 03/13/23 10:53 Laboratory Results - last 24 hr 03/12/23 03/12/2323 11:50 16:54 20:32 WBC RBC Hgb Hct MCV MCH MCHC RDW Plt Count MPV PT INR Sodium Potassium Chloride Carbon Dioxide Anion Gap BUN Creatinine Est GFR (CKD-EPI 2020) Glucose Calcium Magnesium Total Bilirubin AST ALT Alkaline Phosphatase Troponin I 222 H* 229 H* Cancelled Total Protein Albumin 03/13/23 03/13/23 03/13/23 01:03 01:03 06:44 WBC RBC Hgb Hct MCV MCH MCHC RDW Plt Count MPV PT 10.0 INR 1.0 Sodium 143 Potassium 3.6 Chloride 106 Carbon Dioxide 29.0 Anion Gap 8.0 BUN 20 H Creatinine 0.8 Est GFR (CKD-EPI 2020) 73.98 Glucose 96 Calcium 8.8 Magnesium 2.3 Total Bilirubin 0.5 AST 23 ALT 25 Alkaline Phosphatase 110 Troponin I 223 H* 253 H* Total Protein 7.0 Albumin 3.5 03/13/23 06:44 WBC 6.75 RBC 5.37 H Hgb 15.0 Hct 45.6 MCV 85 MCH 27.9 MCHC 32.9 RDW 13.1 Plt Count 215 MPV 12.3 H PT INR Sodium Potassium Chloride Carbon Dioxide Anion Gap BUN Creatinine Est GFR (CKD-EPI 2020) Glucose Calcium Magnesium Total Bilirubin AST ALT Alkaline Phosphatase Troponin I Total Protein Albumin
--- NOTE | 2023-03-13 14:47 | PT.INIE ---
Date of service: 03/13/23 Time of Service: 13:55 PT Notes Visit Reasons: Vertigo, Dehydration, Elevated Troponins Physical Therapy Inpatient Initial Evaluation Date: 03/13/2023 Referring Doctor: Peter Mosley MD PT Orders: PT CONSULT: Limited ability Precautions: Fall. Standard. Activity as tolerated. Patient Profile/Admitting Diagnosis: Mey is an 83-year-old female admitted for management of vertigo, dehydration, elevated troponin level due to ACS, hypertension, Alzheimer's type dementia, and newly discovered internal carotid artery aneurysm. Referral sent today to assess for BPPV. PMHX: All Active Problems?(Updated 03/12/23 @ 23:31 by Peter Mosley) Internal carotid aneurysm (Chronic) Elevated troponin level not due to acute coronary syndrome (Acute) Vertigo (Acute) Dehydration (Acute) Nail dystrophy (Acute) Irregular bowel habits (Acute) Diarrhea (Acute) Elevated LFTs (Acute) Lyme disease (Acute) Heart murmur (Acute) Dizziness (Acute) Hypertension (Chronic) History of adverse reaction to anesthesia (Acute) Abnormal weight loss (Acute) Basal cell carcinoma (Chronic) Incarcerated left inguinal hernia (Acute) Cognitive changes (Acute) Hypertrophy of nail (Acute) Alzheimer's dementia without behavioral disturbance (Chronic) Vascular dementia (Acute) Medical History? Cerumen impaction Essential hypertension Hyperlipidemia Incontinence of feces Inguinal hernia, left LVH (left ventricular hypertrophy) Memory impairment Osteopenia Shoulder pain, bilateral Sleep apnea T wave inversion in EKG Unsteady gait Urinary incontinence, mixed Surgical History? Cholecystectomy HERNIA REPAIR Social History/Home Situation: Lives alone in a private home with 4 steps to enter leading onto a platform and another 3 steps to the entrance of the house, rails on both sides. Aspects of ADLs prior to admission, does not use any AD. Still drives. Equipment Owned/DME: Walking sticks SUBJECTIVE: Denies any nausea, spinning sensation, dizziness, chest pain, and headache. Symptom began when patient woke up and opened her eyes Friday morning feeling that the room was spinning. Per Nurse Lisset, patient has been given Meclizine yesterday and early this morning. Onset: Friday of 03/11/2023 Quality: room spinning/whirling Previous epsisodes: None Exacerbating factors: random upon waking up, not positional Nausea/vomitting: At onset on Friday morning but no vomiting/dry heaving Hearing loss: None Tinnitus: None Fullness in either ear: None Imbalance: Unable to maintain semitandem, full tandem, and 1 legged stance for 10 seconds due to report of instability Red flags: Visual changes- none Dysphagia/dysarthria- none Facial weakness/numbness: None Incoordination: Mildly impaired OBJECTIVE: General Observation: Seated on bedside chair reading a book. No lines attached. Mental Status: Alert and oriented as to person, place, time, and purpose. Able to pay attention, focus, and respond appropriately. Short term memory impaired, unable to remember some events that led to his admission per conversation with patient and daughter Pain: Denies Vital Signs: Closely monitored via telemetry ROM: Cervical: Neck extension to neutral only Right Upper Extremity: Shoulder Flexion WFL. Shoulder abduction WFL. Elbow flexion WFL. Wrist flexion WFL. Functional opening and closing of hand WFL. Left Upper Extremity: Shoulder Flexion WFL. Shoulder abduction WFL. Elbow flexion WFL. Wrist flexion WFL. Functional opening and closing of hand WFL. Right Lower Extremity: Hip flexion WFL. Hip abduction WFL. Knee flexion WFL. Ankle dorsiflexion WFL. Ankle plantarflexion WFL. Left Lower Extremity: Hip flexion WFL. Hip abduction WFL. Knee flexion WFL. Ankle dorsiflexion WFL. Ankle plantarflexion WFL. Strength: Right Upper Extremity: Shoulder flexors 4/5. Shoulder abductors 4/5. Elbow flexors 5/5. Elbow extensors 4/5. Filtration Supervisor strong. Left Upper Extremity: Shoulder flexors 4/5. Shoulder abductors 4/5. Elbow flexors 5/5. Elbow extensors 4/5. Filtration Supervisor strong. Right Lower Extremity: Hip flexors 4/5. Hip abductors 4/5. Knee flexors 5/5. Knee extensors 4/5. Ankle dorsiflexors 4/5. Ankle plantarflexors 4/5. Left Lower Extremity: Hip flexors 4/5. Hip abductors 4/5. Knee flexors 5/5. Knee extensors 4/5. Ankle dorsiflexors 4/5. Ankle plantarflexors 4/5. Bed Mobility/Transfers: Rolling independent Supine to sit independent Sit to supine independent Sit to stand independent Stand to sit independent Bed to toilet seat independent Toilet seat to bed independent Bed to reclining chair independent Reclining chair to bed independent Gait: Instructed patient with level surface ambulation of 300 feet requiring supervision assist, NO assistive device. Mild path deviation. Minimal postural sway during walking. Steps asynchronous. Reports that her movement has felt less automatic than it has been since 6 months ago. Decreased arm swing. Balance: Static Sitting: Normal Dynamic Sitting: Normal Static Standing: Good Dynamic Standing: Fair Special Tests: Mobility Limitations Standardized Measure [facility] AM-PAC 6 clicks Basic Mobility Inpatient Short Form: Raw Score: 24 CMS Score: 0% deficit Alr Ligament Test: Negative for ligamnetous instability Sharp-Amanda Test: Negative for ligamnetous instability Voluntary/visual tracking eye movement: normal and complete pursuit normal saccades Involuntary eye movement: intact VOR Normal plane ambulation: Decreased arm swing, guarded limb advancement initially, mild path deviation Short distance ambulation with head turns: moderate path deviation but no LOB Rhomberg Test: mild postural sway posteriorly but no LOB Coordination: Slowed in UE and LE Geneva-Hallpike: asymptomatic on B sides Supine Head roll test: Negative on B sides 12-second chair rise score: 6x Informed Consent/Education: Patient was instructed in purpose of PT consult and plan of care. Agreeable to proceed with established PT POC to achieve personal goals. ASSESSMENT: Patient has had 2-3 doses of meclizine per daughter which may have dampened smptoms in patient. There is however a balance issue that need to be addressed and patient is amenable to going to OP PT for balance retraining and strengthening to maximzie gaze stability and reduce fall risk. Will plan to re-assess Jonathan-owens[abhi manuever if patient is still here tomorrow morning BEFORE intake of Meclizine to ensure optimize objectivity of findings. Patient presents with clinical signs and symptoms consistent with current/admitting diagnoses that have resulted to mobility limitations, gait instability, generalized weakness, and overall ADL decline as demonstrated by the following impairment level findings: 1. Decreased strength to B LE major muscle groups 2. Impaired standing balance 3. Impaired activity tolerance 4. Mild path deviation 5. Chair rise score of 6 6. Incoordination in B UE/LE 7. Decreased arm swing Impairments are contributing to the following functional limitations: 1. Increased completion time for mobility ADL performance 2. Increased risk for falls Patient is assessed as a [id number] low complexity based on the following: History: 83-year-old female with past medical history as indicated above Examination: Demonstrable impairment in strength, balance, and mobility level with underlying impairments and functional limitations as exhibited above Presentation: Stable Decision Makin low complexity Goals: Goals X1 week 1. Supine-Sit independent 2. Sit-Supine independent 3. Sit-Stand independent 4. Stand-Sit independent with no AD 5. Bed-Chair independent with no AD 6. Chair-Bed independent with no AD 7. Independent gait on level surface with use of no AD for at least 600 feet without report of pain nor dyspnea 8. Independent stair negotiation while holding onto B rails for at least 5 steps without report of pain nor dyspnea 9. Independent with home exercise program 10. Good static and dynamic standing balance/tolerance Plan of Care/Treatment Plan: 1-2x/day, 7 days/week x 1 week. Plan of care has been reviewed with the DIRECT CARE SUPERVISOR providing the service under Physical Therapy direction. Initiate Physical Therapy intervention for pain management as needed, strengthening, bed mobility, transfers, gait, stairs, balance training, and use of assistive device. DISCHARGE RECOMMENDATIONS: [] Home with no services [] [] Home with services [specify] [X] Home with outpatient PT for balance retraining to reduce fall risk. [] SNF for continued rehabilitation [] [] [facility] [] [] SNF versus LTC based on ability to participate and progress [] TREATMENT CODE/TIME: 76607 x 20 minutes, 11675 x 25 minutes beginning at 13:55 PM. Thank you for the opportunity to participate in the care of this patient. Milady Lewis PT, DPT, CLT [facility] [place], [place]
[2023-03-13 14:53] VITALS: BP 143/70; PULSE 66; RESP 16; TEMP 37; O2SAT 95
[2023-03-13 15:00] VITALS: PULSE 64
--- NOTE | 2023-03-13 15:08 | W.PM.DS.N ---
Date of service: 03/13/23 Time of Service: 15:08 DS: Diagnosis Discharge Diagnosis (1) Vertigo: Status: Acute Asessment and Plan: symptoms resolved after meclizine. PT evaluation with outpatient recommendations for balance training. khang owens pike negative for nystagmus, but she had received meclizine and is now symptom free. was having positional symptoms in am when rolling in bed. will prescribe meclizine for home use (2) Dehydration: Status: Acute Asessment and Plan: rehydrated and euvolemic (3) Elevated troponin level not due to acute coronary syndrome: Status: Acute Asessment and Plan: remained flat, no chest pain echo shows Conclusion Normal left ventricular chamber size.? There is moderate concentric left ventricular hypertrophy with disproportionate upper septal thickening.? EF is 55%.? 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 Number of leaflets cannot be accurately determined.? Mean gradient is 12 mmHg.? There is no aortic regurgitation Severe mitral annular calcification.? Moderate eccentric mitral regurgitation Estimated right ventricular systolic pressure is 29 mmHg continue calcium channel shukri, consider beta shukri. defer to outpatient team. discussed echo findings briefly with Dr Cr who agrees with medication adjustment or changes and further monitoring deferred to outpatient provider. (4) Hypertension: Status: Chronic Asessment and Plan: blood pressure on discharge day 125/74 and 143/70 continue blood pressure management (5) Alzheimer's dementia without behavioral disturbance: Status: Chronic (6) Internal carotid aneurysm: Status: Chronic Asessment and Plan: Incidental finding and will defer further work up to outpatient team. Her blood pressure is well controlled at discharge. She was advised to monitor it and to bring log to PCP appointment for further recommendations Discharge Plan Disposition Patient Disposition: Home Condition: Stable Discharge Details Reason For Visit: Vertigo, Dehydration, Elevated Troponins Admit Date/Time: 03/12/23 20:28 Admit Provider: Peter Mosley Attending Provider: Peter Mosley Primary Care Provider: Marbella Serrato [facility] Course Hospital Course: This is a 83-year-old female patient with a history of dementia who presents to the emergency department with vertiginous symptoms with a history of vertigo. She received IV fluids in the emergency department for some mild dehydration. Apparently she had missed a day or 2 of her diltiazem.She was put on low-dose meclizine which she responded to with resolution of her symptoms.? Imaging was unrevealing except for a incidental finding of a left internal carotid artery saccular aneurysm which neurosurgery stated appears stable.? She also had elevations in her troponins which remained flat and at first cardiology had recommended heparin but neurosurgery did not recommend heparinization in setting of left internal carotid artery. She underwent an echocardiogram which showed left ventricular outflow tract obstruction with a mean gradient of 38 mmHg. This also was thought to be incidental. Briefly discussed medication changes i.e. addition of beta-shukri with Dr. Cr who thinks it is reasonable to wait for outpatient evaluation with PCP. She is being discharged home to resume her usual medications with the addition of meclizine. She has remained medically stable. PT evaluated and symptoms are resolved with her meclizine she was safely really ambulated. They recommend outpatient physical therapy for gait and balance training. She is discharged to home with no additional new services. Discharge instructions reviewed with patient and her daughter who is at bedside. Discharge discussed with Home Meds and New Rx's Prescriptions: New meclizine 12.5 mg Tablet 12.5 mg PO TID PRN PRNQty: 30 0RF Continued benazepril 40 mg tablet 40 mg PO DAILY diltiazem HCl 180 MG capsule,extended release 24hr 180 mg PO HS nitroglycerin [Nitrostat] 0.4 MG tablet, sublingual 0.4 mg Sublingual Q5 MIN PRN X3 PRNQty: 100 0RF ibuprofen 200 mg Tablet 400 mg PO Q6H PRN Patient Comments: does not take very often Discharge Instructions Instructions: Vertigo (DC), Hypertension (DC) Additional Instructions: monitor blood pressure and bring log to follow up appointment for possible medication adjustment Stand Alone Forms: Nursing Discharge Form Referrals: [facility], Physical Therapy [Outside] - 03/20/23 1:00 pm (This appointment is at the [place] office behind [facility]. They are also placed you on a URGENT cancelation list. ) Marbella Serrato [Primary Care Provider] - 03/26/23 2:30 pm (This appointment will be with Dr. Russell.) Activity:: Activity as Tolerated Equipment/Supplies:: No Equipment Needed Diet:: As Tolerated Discharge Orders Discharge Orders: Discharge Order (Routine); Ordered 03/13/23 Ordered By: Keesha Mendiola Discharge Data Discharge Date/Time-TO BE ENTERED AT DEPARTURE: 03/13/23 16:34 DS: Summary Time Spent with Patient providing and/or coordinating discharge services: Less than 30 minutes Status at Discharge Functional status at discharge: independent ambulation Overall status at discharge: patient is progressing back to baseline Mental Status: mental status grossly normal Speech and Movement: speech and movement normal Mood: congruent mood Affect: normal affect Exam Const General: cooperative, healthy appearing, comfortable and no acute distress Nutritional Appearance: thin Orientation: alert, awake, oriented to person and oriented to place HENNY Head: normal to inspection, normocephalic and atraumatic Ears: hearing grossly normal bilaterally Face and sinus: normal facial exam Mouth: oral mucosae normal Eyes General: appearance normal, both eyes and all related structures Neck Neck: normal visual inspection, full ROM, no lymphadenopathy noted and no JVD Chest Chest: normal inspection of the chest Resp Effort & Inspection: normal respiratory effort Cardio Rate: regular rate Rhythm: regular rhythm GI Inspection: normal to inspection Skin General skin exam: no rashes or lesions noted Neuro General: patient alert, patient awake, oriented (at baseline) Patient Orientation: Person and Place and Khang Hallpike (negative) Cranial Nerves: no nystagmus Speech: speech normal Motor: muscle tone normal throughout Sensory Exam: no sensory deficits noted Extrem General: normal to inspection, full ROM and no pedal edema Psych Appearance: grossly normal Mental Status: mental status grossly normal Speech and Movement: speech and movement normal Mood: congruent mood Affect: normal affect Attitude: cooperative Thought Process: normal Thought Content: normal Insight: limited Judgment: limited DS: Data Vitals/I&O Vitals and I&O: Vital Signs Temperature 37.0 C 03/13/23 14:53 Temperature Source Tympanic 03/13/23 14:53 Pulse 66 03/13/23 14:53 Pulse Rhythm Regular 03/13/23 08:00 Pulse 59 L 03/12/23 21:01 Respiratory Rate 16 03/13/23 14:53 Respiratory Effort Normal, Non-Labored 03/13/23 08:00 Respiratory Depth Normal 03/13/23 08:00 Respiratory Pattern Normal 03/13/23 08:00 Blood Pressure 143/70 H 03/13/23 14:53 Blood Pressure Mean 72 03/12/23 21:01 Pulse Oximetry 95 03/13/23 14:53 Oxygen Delivery Method Room Air 03/13/23 14:53 Oxygen Flow Rate 0 03/13/23 14:53 Pain Level 0 03/13/23 14:53 Intake & Output 03/12/23 03/13/23 03/13/23 23:59 11:59 23:59 Intake Total 250 / 1250 500 / 500 Output Total 300 / 700 400 / 700 Balance 250 / 1250 200 / -200 -400 / -200 Weight 61.8 kg Intake: IV 250 / 1250 10 10 Oral 490 / 490 Output: Urine 300 / 700 400 / 700 Other: Urine Color Yellow Yellow Urine Appearance Clear Clear Clear Urine Odor Normal Voiding Methods Toilet Toilet # Voids 1 Data Completed and Pending Labs on day of discharge: Labs from last 24 hours 03/13/23 03/13/23 03/13/23 06:44 06:44 01:03 WBC 6.75 RBC 5.37 H Hgb 15.0 Hct 45.6 MCV 85 MCH 27.9 MCHC 32.9 RDW 13.1 Plt Count 215 MPV 12.3 H PT INR Sodium 143 Potassium 3.6 Chloride 106 Carbon Dioxide 29.0 Anion Gap 8.0 BUN 20 H Creatinine 0.8 Est GFR (CKD-EPI 2020) 73.98 Glucose 96 Calcium 8.8 Magnesium 2.3 Total Bilirubin 0.5 AST 23 ALT 25 Alkaline Phosphatase 110 Troponin I 253 H* 223 H* Total Protein 7.0 Albumin 3.5 03/13/23 03/12/23 03/12/23 01:03 20:32 16:54 WBC RBC Hgb Hct MCV MCH MCHC RDW Plt Count MPV PT 10.0 INR 1.0 Sodium Potassium Chloride Carbon Dioxide Anion Gap BUN Creatinine Est GFR (CKD-EPI 2020) Glucose Calcium Magnesium Total Bilirubin AST ALT Alkaline Phosphatase Troponin I Cancelled 229 H* Total Protein Albumin PFSH All Active Problems (Updated 03/12/23 @ 23:31 by Peter Mosley) Internal carotid aneurysm (Chronic) Elevated troponin level not due to acute coronary syndrome (Acute) Vertigo (Acute) Dehydration (Acute) Nail dystrophy (Acute) Irregular bowel habits (Acute) Diarrhea (Acute) Elevated LFTs (Acute) Lyme disease (Acute) Heart murmur (Acute) Dizziness (Acute) Hypertension (Chronic) History of adverse reaction to anesthesia (Acute) Abnormal weight loss (Acute) Basal cell carcinoma (Chronic) Incarcerated left inguinal hernia (Acute) Cognitive changes (Acute) Hypertrophy of nail (Acute) Alzheimer's dementia without behavioral disturbance (Chronic) Vascular dementia (Acute) Medical History Cerumen impaction Essential hypertension Hyperlipidemia Incontinence of feces Inguinal hernia, left LVH (left ventricular hypertrophy) Memory impairment Osteopenia Shoulder pain, bilateral Sleep apnea T wave inversion in EKG Unsteady gait Urinary incontinence, mixed Surgical History Cholecystectomy HERNIA REPAIR Family History Mother Alzheimer's disease Father No problems noted. Social History Smoking/Tobacco Use Status: Never Smoking risk assessment performed?: Yes Alcohol Intake: current Alcohol Intake frequency: holidays/special occasions only Drug use: Never Current gender identity: female Do you feel safe at home: Yes Do you feel safe in your relationship?: Yes Time Spent with Patient Time Spent with Patient: <45 minutes Time was spent: preparing to see the patient(eg.review tests), ordering medications,tests, procedures, referring, communicating with other health eye care professional, indepentently interpreting results, counseling the patient and care coordination
--- NOTE | 2023-03-13 16:48 | NUR.NOTE ---
Patient has been DC. All DC paperwork has been signed. All PIVs have been removed & secured with pressure dressing. All questions & or concerns have been addressed. All of patients belongings have been bagged & taken with the patient. Patient was taken off the unit via WC & taken home via car & patients daughter. Nursing Note:
--- NOTE | 2023-03-14 13:08 | INDS_ITS ---
Date of service: 03/13/23 PT Notes Visit Reasons: Vertigo, Dehydration, Elevated Troponins Physical Therapy Inpatient Discharge Summary Date: 03/13/2023 Dates of Service: 03/13/2023 only This is a clinical summary of care provided for the duration of dates listed above. No charge was made in the completion of this documentation. Referring Doctor: Peter Mosley MD PT Orders: PT CONSULT: Limited ability Precautions: Fall. Standard. Activity as tolerated. Patient Profile/Admitting Diagnosis:? Mey is an 83-year-old female admitted for management of vertigo, dehydration, elevated troponin level due to ACS, hypertension, Alzheimer's type dementia, and newly discovered internal carotid artery aneurysm.? Referral sent today to assess for BPPV. PMHX: All Active Problems?(Updated 03/12/23 @ 23:31 by Peter Msoley) Internal carotid aneurysm (Chronic) Elevated troponin level not due to acute coronary syndrome (Acute) Vertigo (Acute) Dehydration (Acute) Nail dystrophy (Acute) Irregular bowel habits (Acute) Diarrhea (Acute) Elevated LFTs (Acute) Lyme disease (Acute) Heart murmur (Acute) Dizziness (Acute) Hypertension (Chronic) History of adverse reaction to anesthesia (Acute) Abnormal weight loss (Acute) Basal cell carcinoma (Chronic) Incarcerated left inguinal hernia (Acute) Cognitive changes (Acute) Hypertrophy of nail (Acute) Alzheimer's dementia without behavioral disturbance (Chronic) Vascular dementia (Acute) Medical History? Cerumen impaction Essential hypertension Hyperlipidemia Incontinence of feces Inguinal hernia, left LVH (left ventricular hypertrophy) Memory impairment Osteopenia Shoulder pain, bilateral Sleep apnea T wave inversion in EKG Unsteady gait Urinary incontinence, mixed Surgical History? Cholecystectomy HERNIA REPAIR Social History/Home Situation: Lives alone in a private home with 4 steps to enter leading onto a platform and another 3 steps to the entrance of the house, rails on both sides.? Aspects of ADLs prior to admission, does not use any AD.? Still drives. Equipment Owned/DME: Walking sticks SUBJECTIVE: NT. See most recent DIE SINKER APPRENTICE notes. Onset:? Friday morning of 03/11/2023 Quality:? room spinning/whirling Previous epsisodes: None Exacerbating factors: random upon waking up, not positional Nausea/vomitting:? At onset on Friday morning but no vomiting/dry heaving Hearing loss: None Tinnitus: None Fullness in either ear: None Imbalance:? Unable to maintain semitandem, full tandem, and 1 legged stance for 10 seconds due to report of instability Red flags: Visual changes- none ?? ? Dysphagia/dysarthria- none ? Facial weakness/numbness: None ? Incoordination: Mildly impaired OBJECTIVE: General Observation: NT. See most recent DIE SINKER APPRENTICE notes. Mental Status: NT. See most recent DIE SINKER APPRENTICE notes. Pain: NT. See most recent DIE SINKER APPRENTICE notes. Vital Signs: NT. See most recent DIE SINKER APPRENTICE notes. ROM: Cervical:? Neck extension to neutral only Right Upper Extremity: ? Shoulder Flexion WFL. Shoulder abduction WFL. Elbow flexion WFL. Wrist flexion WFL. Functional opening and closing of hand WFL. Left Upper Extremity:? Shoulder Flexion WFL. Shoulder abduction WFL. Elbow flexion WFL. Wrist flexion WFL. Functional opening and closing of hand WFL. Right Lower Extremity: Hip flexion WFL. Hip abduction WFL. Knee flexion WFL. Ankle dorsiflexion WFL. Ankle plantarflexion WFL. Left Lower Extremity: Hip flexion WFL. Hip abduction WFL. Knee flexion WFL. Ankle dorsiflexion WFL. Ankle plantarflexion WFL. Strength: Right Upper Extremity: Shoulder flexors 4/5. Shoulder abductors 4/5. Elbow flexors 5/5. Elbow extensors 4/5. Applied Computer Science Professor strong. Left Upper Extremity: Shoulder flexors 4/5. Shoulder abductors 4/5. Elbow flexors 5/5. Elbow extensors 4/5. Applied Computer Science Professor strong. Right Lower Extremity: Hip flexors 4/5. Hip abductors 4/5. Knee flexors 5/5. Knee extensors 4/5. Ankle dorsiflexors 4/5. Ankle plantarflexors 4/5. Left Lower Extremity: Hip flexors 4/5. Hip abductors 4/5. Knee flexors 5/5. Knee extensors 4/5. Ankle dorsiflexors 4/5. Ankle plantarflexors 4/5. Bed Mobility/Transfers: Rolling independent Supine to sit independent Sit to supine independent Sit to stand independent Stand to sit independent Bed to toilet seat independent Toilet seat to bed independent Bed to reclining chair independent Reclining chair to bed independent Gait: Instructed patient with level surface ambulation of 300 feet requiring supervision assist,? NO assistive device.? Mild path deviation.? Minimal postural sway during walking.? Steps asynchronous.? Reports that her movement has felt less automatic than it has been since 6 months ago.? Decreased arm swing. Balance: Static Sitting: Normal Dynamic Sitting: Normal Static Standing: Good Dynamic Standing: Fair Special Tests: Mobility Limitations Standardized Measure [facility] 6 clicks Basic Mobility Inpatient Short Form: Raw Score: 24? CMS Score: 0% deficit? ? ? Alr Ligament Test: Negative for ligamentous instability Sharp-Amanda Test: Negative for ligamentous instability Voluntary/visual tracking eye movement: normal and complete pursuit ? normal saccades Involuntary eye movement:? intact VOR Normal plane ambulation: Decreased arm swing,? guarded limb advancement initially,? mild path deviation Short distance ambulation with head turns:? moderate path deviation but no LOB Rhomberg Test:? mild postural sway posteriorly but no LOB Coordination:? Slowed in UE and LE Jonathan-Hallpike: asymptomatic on B sides Supine Head roll test:? Negative on B sides 12-second chair rise score: 6x ASSESSMENT: Patient has had 2-3 doses of meclizine per daughter which may have dampened symptoms in patient during [place]-Hallpike manuever.? There is however a balance issue that need to be addressed and patient is amenable to going to OP PT for balance retraining and strengthening to maximzie gait stability and reduce fall risk.? Patient presents with clinical signs and symptoms consistent with current/admit ting diagnoses that have resulted to mobility limitations, gait instability, generalized weakness, and overall ADL decline as demonstrated by the following impairment level findings: 1.? Decreased strength to B LE major muscle groups 2.? Impaired standing balance 3.? Impaired activity tolerance 4.? Mild path deviation 5.? Chair rise score of 6 6.? Incoordination in B UE/LE 7.? Decreased arm swing Impairments are contributing to the following functional limitations: 1.? Increased completion time for mobility ADL performance 2.? Increased risk for fall Goals: Goals X1 week 1. Supine-Sit independent MET 2. Sit-Supine independent MET 3. Sit-Stand independent MET 4. Stand-Sit independent with no AD MET 5. Bed-Chair independent with no AD MET 6. Chair-Bed independent with no AD MET 7. Independent gait on level surface with use of no AD for at least 600 feet without report of pain nor dyspnea NOT MET 8. Independent stair negotiation while holding onto B rails for at least 5 steps without report of pain nor dyspnea NOT MET 9. Independent with home exercise program NOT MET 10. Good static and dynamic standing balance/tolerance NOT MET DISCHARGE RECOMMENDATIONS: [] ? Home with no services [] [] ? Home with services [specify] [X] ? Home with outpatient PT for balance retraining to reduce fall risk. [] ? SNF for continued rehabilitation [] [] ? [facility] [] [] ? SNF versus LTC based on ability to participate and progress [] TREATMENT CODE/TIME: MA Thank you for the opportunity to participate in the care of this patient. Milady Lewis PT, DPT, CLT [facility] [place], [place]
== END 2023-03-13 16:34 | disposition home or self-care (01) ==
LOC: ER 20:43 → MS 21:27
PROVIDERS: Physician Assistant; Admitting Provider Family Medicine; Emergency Provider Nurse Practitioner Family; PCP Nurse Practitioner Family; Visit Provider Family Medicine
DX: R42 Dizziness and giddiness (principal); E86.0 Dehydration; R74.8 Abnormal levels of other serum enzymes; I10 Essential (primary) hypertension; G30.9 Alzheimer's disease, unspecified; F02.80 Dementia in other diseases classified elsewhere, unspecified severity, without behavioral disturbance, psychotic disturbance, mood disturbance, and anxiety; I67.1 Cerebral aneurysm, nonruptured; Z66 Do not resuscitate; F01.50 Vascular dementia, unspecified severity, without behavioral disturbance, psychotic disturbance, mood disturbance, and anxiety
CPT/HCPCS: 36415; 70496; 70498; 70544; 70553; 80053; 82550; 85027; 93005; 93306; 96361; 96372; 96374; 97162; 97530; 99285; 81003; 83735; 84484; 85025; 85610; 93010; 99223; 99238; G0378; J1644; J2765

== ENCOUNTER 2023-04-10 11:47 | Outpatient (REF) | payer MEDICARE, SELFPAY ==
[2023-04-10 14:18] LABS: Calculated LDL 129 mg/dL (<100); Cholesterol 209 mg/dL (<200); HDL Cholesterol 62 mg/dL (40-60); Triglyceride 91 mg/dL (<150)
== END 2023-04-10 11:48 | disposition home or self-care (01) ==
LOC: NCHCN 11:47
PROVIDERS: PCP Nurse Practitioner Family; Visit Provider Dermatology
DX: E78.5 Hyperlipidemia, unspecified (principal); M85.80 Other specified disorders of bone density and structure, unspecified site; I72.0 Aneurysm of carotid artery; F02.80 Dementia in other diseases classified elsewhere, unspecified severity, without behavioral disturbance, psychotic disturbance, mood disturbance, and anxiety; N39.46 Mixed incontinence
CPT/HCPCS: 80061; 82306

== ENCOUNTER 2023-04-11 10:19 | Outpatient (REF) | payer MEDICARE, SELFPAY ==
--- NOTE | 2023-04-11 11:32 | SKI_PTH ---
PATIENT: Mey Menjivar LOC: [facility] U#:[id number] AGE/SX: 83/F ROOM: RE04/11/[address]: Jody Tanner MD : [id number] BED: DIS: 04/11/2023 SPEC #: [id number] RECD: 04/11/23 12:38 STATUS: JACK REQ #: [id number] MARIELA: 04/11/23 11:[address]: Jody Tanner DEPT: Surgical Specimen RECD BY: Aga Glasgow ENTERED: 04/11/23 12:39 SP TYPE: MIGUEL RIVERA DR: Mrabella Serrato Tissues: 1 - SKIN BIOPSY(SHAVE/PUNCH) Procedures: SKIN LEVEL 4 Comments: [id number]
== END 2023-04-11 10:20 | disposition home or self-care (01) ==
LOC: LBN 10:19
PROVIDERS: PCP Nurse Practitioner Family; Referring Provider Family Medicine; Visit Provider Surgery
DX: L98.9 Disorder of the skin and subcutaneous tissue, unspecified (principal)
CPT/HCPCS: 88305

== ENCOUNTER → 2023-04-11 10:19 | Outpatient (BNVA) | payer MEDICARE, SELFPAY | PROVIDERS: PCP Nurse Practitioner Family; Referring Provider Family Medicine; Visit Provider Surgery | DX: C44.629 Squamous cell carcinoma of skin of left upper limb, including shoulder (principal); L98.9 Disorder of the skin and subcutaneous tissue, unspecified | CPT/HCPCS: 11606; 99203 ==

== ENCOUNTER → 2023-04-24 10:36 | Outpatient (BNVA) | payer MEDICARE, SELFPAY | PROVIDERS: PCP Nurse Practitioner Family; Referring Provider Nurse Practitioner Family; Visit Provider Physical Therapy Assistant | DX: C44.629 Squamous cell carcinoma of skin of left upper limb, including shoulder (principal); Z48.02 Encounter for removal of sutures ==

== ENCOUNTER → 2023-04-29 08:39 | Outpatient (BNVA) | payer MEDICARE, SELFPAY | PROVIDERS: PCP Nurse Practitioner Family; Visit Provider Nurse Practitioner Adult Health | DX: G30.9 Alzheimer's disease, unspecified (principal); F02.80 Dementia in other diseases classified elsewhere, unspecified severity, without behavioral disturbance, psychotic disturbance, mood disturbance, and anxiety; F01.50 Vascular dementia, unspecified severity, without behavioral disturbance, psychotic disturbance, mood disturbance, and anxiety; I67.1 Cerebral aneurysm, nonruptured; I10 Essential (primary) hypertension | CPT/HCPCS: 99214 ==

== ENCOUNTER 2023-09-05 15:20 | Emergency (ER) | payer MEDICARE, SELFPAY ==
[2023-09-05] VITALS (87 sets, daily range): BP systolic 66–130; BP diastolic 34–108; PULSE 16–61; RESP 10–25; TEMP 36.3; O2SAT 92–98
--- NOTE | 2023-09-05 15:00 | RT.EKG_ITS ---
APPROVED REPORT Exam: Resting ECG Reason for Exam: Vertigo Patient Location: E HR:47 bpm ECG Measurements Heart Rate 47 AXIS TN 149 P 51 QRSd 132 QRS -5 QT 628 T 245 QTc 554 Conclusion Sinus bradycardia...rate< 60 Left bundle branch block...QRSd>120, broad/notched R Prolonged QT interval...QTc >500mS sinus bradycardia, LBBB unchanged from prior, negative by modified sgarbossa
--- NOTE | 2023-09-05 15:24 | ED.GENADUL_ITS ---
Discharge Plan Disposition Patient Disposition: Transfer-Acute Inpatient Care Specific Acute Inpt Facility: [facility] Discharge Details Clinical Impression: Acute coronary syndrome Primary Care Provider: Marbella Serrato ED Provider: Mikael Angelo Home Meds and New Rx's Prescriptions: No Action diltiazem HCl 240 mg capsule,extended release 24 hr 240 mg PO DAILY benazepril 40 mg tablet 40 mg PO DAILY meclizine 12.5 mg Tablet 12.5 mg PO TID PRN PRNQty: 30 0RF ibuprofen 200 mg Tablet 400 mg PO Q6H PRN Patient Comments: does not take very often Discharge Instructions Additional Instructions: You were seen in the [facility] emergency department for your near syncope at home. You have elevated troponin and poor cardiac function on bedside echocardiogram, this is possibly an ischemic cardiac event versus acute onset of congestive heart failure, you were excepted by Dr. Edouard [facility] stepdown unit. Medical Decision Making This dictation utilizes [id number] dictation software and may contain unedited grammatical errors. 83 y/o F presents to ED today with a chief complaint of acute on chronic vertigo- possible episode of syncope about 40 minutes prior to arrival, came in by EMS. Reportedly hypotensive 80/50 en route with bradycardia to the 40s. Patient has history of Alzheimer's and is a poor historian, no complaint of any pain at this time- just that the room is spinning when she looks around. She has many visits with PT for vertigo in the past. Onset and characteristics include possible syncope, with pale appearance and mental status improving by time of EMS arrival. Patients' medical history: Unsteady gait, LVH, hyperlipidemia, history of T wave inversions on EKG with left bundle branch block, history of heart murmur, known internal carotid aneurysm, history of elevated troponin without ACS. Family and social history: [ ]. Pertinent exam findings / vital signs include bradycardia with distinct murmur harsh systolic best heard at LSB, baseline cognitive function, NIH: 0, lungs CTA, benign abdomen. Differential / pathologies of concern include ACS, Vertigo, ICH, Brain Mass, Syncope, GI Bleeding less likely. Diagnostic studies of: -CBC, CMP, Lipase, Lactate, Trop I, Ammonia, BNP, CXR, CT Head wo Contrast, TSH, UA, UTox, CRP/ESR. -initial trop 412 - baseline 250 from prior visits - repeat 3hr is 401 -CBC benign, HgB stable -Lactate 2.0 -CXR shows no widened mediastinum, no pulmonary edema -CT head shows no ICH, known aneurysm without bleeding -TSH 9, t4 pending -Lipase WNL -BNP 7600 -CRP/ESR WNL -D-dimer elevated to 831, negative for PE with years criteria- unlikely PE based on presentation -EKG shows T-wave inversions, LBBB, prolonged QT, no signs of Torsades, the T- wave inversions and ST Depressions are chronic on prior EKG from February 2023, non- dynamic, no STEMI -Sent Tick Panel prior to transfer Interventions of: -1L IVF, 324mg ASA. -Consult [facility] for transfer for AMI, discussed with EM Attending Dr. Vazquez, he performed bedside ECHO which showed global hypokinesia, most contractility originating at the apex only, and questions Takotsubo appearance of LV. -[facility] Accepted Dr. Edouard for step-down bed, they want anti-hypertensives held- which have not been given in this ED, they recommend against CTA Chest for Aorta and CTA neck/head for known aneurysm. ED Course: Well-appearing 83-year-old female who lives an active lifestyle including taking care of horses, walking 1 mile a day presents for exacerbation of vertigo and BP readings lower than normal at home. She was found to be somewhat hypotensive 90 over 50s on arrival bradycardic to the 40s without signs of heart block, EKG is nondynamic and shows no STEMI CT head without showed no intracranial hemorrhage, chest x-ray shows no widened mediastinum but does show significant cardiomegaly, initial troponin of 412, mildly elevated dimer to a 31, hemoglobin stable. On arrival back from diagnostic imaging the patient was noted to have a brief hypotensive episode in the 70s over 40s, I did open up her fluids which were running slowly to wide open level to finish the first liter which improved her hypotension and she is currently stable at 105/43 at time of acceptance by [facility]. She is resting comfortably with her daughter in the ED room, she experienced no chest pain or syncopal events and was talking and appeared to be perfusing normally throughout the brief hypotensive episode. Engaged in a goal of treatment discussion with the patient and patient's daughter she is a DNR/DNI, she agrees that she would like to be evaluated by [facility] cardiology and would be open to some sedation for any necessary procedures that she has not had significant cardiac history and does live a fairly active lifestyle and is a viable candidate for any intervention. Transport arranged for 2300 to [facility] Step-down. Patients transient hypotension was discussed with EM Attending Dr. Hickey- each time we re-checked BP with appropriate sized cuff and got reassuring readings with 100s or 90s over 60s/70s with MAP > 65. Occasional hypotension to 80s/50s but patient is sleeping. We discussed the possibility of pressors, but would prefer not to constrict coronary circulation and the patient appears well perfused, warm, without chest pain, and is talking at baseline with no discomfort. We discussed heparin in the setting of her acute on chronic elevated troponin, but [facility] did not recommend heparin, and stated this may all be related to acute onset of CHF. [facility] recommended against any more than 1L of fluid due to poor LV function. Spreader Box Operator level transfer, possible need for pressors en route. Disposition of Acute Coronary Syndrome. Patient verbalized understanding of the plan and return to ED criteria and engaged in shared decision making, EMS transfer to [facility] upon step-down bed assignment this evening. Medical Records Medical records reviewed: Yes I reviewed the patient's medical records. Imaging Data Radiologic Study: Imaging: X-Ray Radiologist's impression: XR CHEST 1V IN DI DEPT EXAM: XR CHEST 1V IN DI DEPT CLINICAL HISTORY: syncope TECHNIQUE: 2D digital imaging was performed of the chest. One image was obtained. An AP view was obtained. COMPARISON: CR XR CHEST 2V PA LATERAL from 07/14/2019 FINDINGS: MEDIASTINUM: Normal. HEART: Cardiomegaly. PULMONARY VASCULATURE: Normal. LUNGS: Clear. PLEURAL SPACE: No pleural effusion or pneumothorax. BONE:Within normal limits for the patient's age. OTHER FINDINGS:Normal. IMPRESSION: No acute pulmonary findings. Radiologic Study #2: Imaging: CT Scan Radiologist's impression: CT HEAD WO EXAM: CT HEAD WO CLINICAL HISTORY: vertigo, syncope. TECHNIQUE: Imaging Protocol: Axial computed tomography images with coronal and sagittal reformatted images were created and reviewed COMPARISON: CT CT BRAIN NECK CTA from 03/12/2023 FINDINGS: Ventricles and Extra axial spaces: Normal in size and morphology for the patient's age. Note is again made of a left internal carotid artery aneurysm. Hemorrhage: None. Cerebral parenchyma: There are areas of decreased attenuation in the white matter most consistent with small vessel ischemic disease. Midline shift: None. Brainstem/Cerebellum: Normal. Calvarium: Normal. Visualized Paranasal sinuses/Mastoids: Clear. Soft Tissues: Unremarkable. IMPRESSION: 1. No acute intracranial process. 2. Findings were discussed with Mikael Angelo at 4:04 p.m. on 09/05/2023. Lab Data Lab results reviewed: Yes I reviewed the patient's lab results. Labs: 09/05/23 18:00 Urine - Reflex from Ua Urine Culture - Pending Laboratory Tests Range/Units 09/05/23 09/05/23 09/05/23 15:30 16:08 18:00 WBC (4.4-10.8) 10^3/uL 8.23 RBC (3.93-5.22) 10^6/uL 5.25 H Hgb (11.2-15.7) g/dL 14.4 Hct (36.0-46.0) % 45.5 MCV (80-95) fL 87 MCH (27.0-33.0) pg 27.4 MCHC (32.0-36.0) % 31.6 L RDW (11.7-14.6) % 12.6 Plt Count (130-400) 10^3/uL 201 MPV (8.0-11.0) fL 12.9 H Immature Gran % 0.2 Neutrophils % 68.1 Lymphocytes % 23.9 Monocytes % 5.0 Eosinophils % 1.3 Basophils % 1.5 Nucleated RBC % (0.0-0.3) % 0.0 Absolute Neutrophils (1.2-6.7) 10^3/uL 5.60 Absolute Lymphocytes (1.2-3.4) 10^3/uL 1.97 Absolute Monocytes (0.1-0.8) 10^3/uL 0.41 Absolute Eosinophils (0.0-0.7) 10^3/uL 0.11 Absolute Basophils (0.0-0.2) 10^3/uL 0.12 ESR (0-30) mm/hr 4 D-Dimer (<500) ng/mlFEU 831 H VBG Lactate (0.6-1.4) mmol/L 2.0 H Sodium (136-145) mmol/L 141 Potassium (3.5-5.1) mmol/L 3.2 L Chloride (98-107) mmol/L 107 Carbon Dioxide (21.0-32.0) mmol/L 27.2 Anion Gap (3-11) mmol/L 6.8 BUN (7-18) mg/dL 21 H Creatinine (0.55-1.02) mg/dL 1.1 H Est GFR (CKD-EPI 2020) (mL/min/1.73m2) 50.48 Glucose (74-106) mg/dL 188 H Calcium (8.5-10.1) mg/dL 8.3 L Magnesium (1.8-2.4) mg/dL 2.3 Total Bilirubin (0.2-1.0) mg/dL 0.3 AST (15-37) U/L 21 ALT (14-59) U/L 23 Alkaline Phosphatase (46-116) U/L 89 Ammonia (11-32) umol/L < 10 L Troponin I (<or=60) ng/L 412 H* C-Reactive Protein (0.0-0.3) mg/dL 0.14 NT-Pro-B Natriuret Pep (<300) pg/mL 7903 H Total Protein (6.4-8.2) g/dL 6.7 Albumin (3.4-5.0) g/dL 3.5 Lipase (16-77) U/L 19 TSH (0.36-3.74) uIU/mL 9.07 H Free T4 (0.76-1.46) ng/dL 0.98 Urine Color (Yellow) Yellow Urine Clarity (Clear) Clear Urine pH (5-8) 5.5 Ur Specific Monument (1.005-1.025) 1.015 Urine Protein (Negative) mg/dL 30 H Urine Ketones (Negative) mg/dL Negative Urine Blood (Negative) Negative Urine Nitrite (Negative) Negative Urine Bilirubin (Negative) Negative Urine Urobilinogen (Up to 0.2) mg/dL 0.2 Ur Leukocyte Esterase (Negative) Moderate H Urine RBC (0-2) HPF 0-2 Urine WBC (0-5) HPF 10-20 H Ur Epithelial Cells (Negative) HPF Few Urine Crystals (Negative) HPF Negative Urine Bacteria (Negative) HPF Few Urine Casts (Negative) LPF 3-5 Hyaline Urine Mucus (Negative) Trace Urine Other (Negative) Rare Renal Ur Culture Indicated? Yes Urine Glucose (Negative) mg/dL Negative COVID-19 Source Nasal/Nares SARS-CoV-2 (PCR) (Negative) Negative Range/Units 09/05/23 18:38 WBC (4.4-10.8) 10^3/uL RBC (3.93-5.22) 10^6/uL Hgb (11.2-15.7) g/dL Hct (36.0-46.0) % MCV (80-95) fL MCH (27.0-33.0) pg MCHC (32.0-36.0) % RDW (11.7-14.6) % Plt Count (130-400) 10^3/uL MPV (8.0-11.0) fL Immature Gran % Neutrophils % Lymphocytes % Monocytes % Eosinophils % Basophils % Nucleated RBC % (0.0-0.3) % Absolute Neutrophils (1.2-6.7) 10^3/uL Absolute Lymphocytes (1.2-3.4) 10^3/uL Absolute Monocytes (0.1-0.8) 10^3/uL Absolute Eosinophils (0.0-0.7) 10^3/uL Absolute Basophils (0.0-0.2) 10^3/uL ESR (0-30) mm/hr D-Dimer (<500) ng/mlFEU VBG Lactate (0.6-1.4) mmol/L Sodium (136-145) mmol/L Potassium (3.5-5.1) mmol/L Chloride (98-107) mmol/L Carbon Dioxide (21.0-32.0) mmol/L Anion Gap (3-11) mmol/L BUN (7-18) mg/dL Creatinine (0.55-1.02) mg/dL Est GFR (CKD-EPI 2020) (mL/min/1.73m2) Glucose (74-106) mg/dL Calcium (8.5-10.1) mg/dL Magnesium (1.8-2.4) mg/dL Total Bilirubin (0.2-1.0) mg/dL AST (15-37) U/L ALT (14-59) U/L Alkaline Phosphatase (46-116) U/L Ammonia (11-32) umol/L Troponin I (<or=60) ng/L 401 H* C-Reactive Protein (0.0-0.3) mg/dL NT-Pro-B Natriuret Pep (<300) pg/mL Total Protein (6.4-8.2) g/dL Albumin (3.4-5.0) g/dL Lipase (16-77) U/L TSH (0.36-3.74) uIU/mL Free T4 (0.76-1.46) ng/dL Urine Color (Yellow) Urine Clarity (Clear) Urine pH (5-8) Ur Specific Monument (1.005-1.025) Urine Protein (Negative) mg/dL Urine Ketones (Negative) mg/dL Urine Blood (Negative) Urine Nitrite (Negative) Urine Bilirubin (Negative) Urine Urobilinogen (Up to 0.2) mg/dL Ur Leukocyte Esterase (Negative) Urine RBC (0-2) HPF Urine WBC (0-5) HPF Ur Epithelial Cells (Negative) HPF Urine Crystals (Negative) HPF Urine Bacteria (Negative) HPF Urine Casts (Negative) LPF Urine Mucus (Negative) Urine Other (Negative) Ur Culture Indicated? Urine Glucose (Negative) mg/dL COVID-19 Source SARS-CoV-2 (PCR) (Negative) HPI General Date/Time Provider Initiated Documentation: 09/05/23 15:24 . HPI Narrative: 83 year-old female presents to ED today by EMS with a chief complaint of increased confusion in the setting of Alzheimer's, increased vertigo/feelings of near syncope in the setting of chronic vertigo with onset 40 minutes prior to arrival. Quality described as vertiginous, feels weak, no radiation to chest pain whatsoever, slurred speech, LOC, nausea/vomiting, abdominal pain, fever, cough, shortness of breath. Severity is described as 0/10 for pain globally. Palliating factors include nothing specific attempted. Provoking factors include nothing specific. Events leading up to the incident/Associated Symptoms: Patient denies cardiac history, lives a fairly active lifestyle- still rides horses with her family, usually has high blood pressure, was noted to be 80/55 en route by EMS. Patient not anticoagulated. Related Data Home Medications Medication Instructions Recorded Confirmed ibuprofen 200 mg tablet 400 mg PO Q6H PRN 05/09/20 09/05/23 benazepril 40 mg tablet 40 mg PO DAILY 01/06/23 09/05/23 meclizine 12.5 mg tablet 12.5 mg PO TID PRN PRN #30 tabs 03/13/23 09/05/23 diltiazem HCl 240 mg capsule,24 240 mg PO DAILY 04/24/23 09/05/23 hr,extended release Previous Rx's Medication Instructions Recorded meclizine 12.5 mg tablet 12.5 mg PO TID PRN PRN #30 tabs 03/13/23 Allergies Allergy/AdvReac Type Severity Reaction Status Date / Time latex Allergy Mild rash Unverified 09/05/23 16:45 propoxyphene HCl AdvReac Severe profound Unverified 09/05/23 16:45 [From Darvon Compound-65] hypotension antibiotic ointments AdvReac Mild rash Uncoded 09/05/23 16:45 General Stated Complaint: Dizzy/Sync DAVID: 3 Review of Systems All systems reviewed & are unremarkable except as noted in HPI and below PFSH All Active Problems (Updated 09/05/23 @ 17:08 by SHADY Kenyon) Acute coronary syndrome (Acute) Cerebral aneurysm (Acute) Skin lesion (Acute) Internal carotid aneurysm (Chronic) Elevated troponin level not due to acute coronary syndrome (Acute) Dehydration (Acute) Nail dystrophy (Acute) Vascular dementia (Acute) Alzheimer's dementia without behavioral disturbance (Chronic) Hypertrophy of nail (Acute) Cognitive changes (Acute) Vertigo (Acute) Incarcerated left inguinal hernia (Acute) Basal cell carcinoma (Chronic) Abnormal weight loss (Acute) History of adverse reaction to anesthesia (Acute) Hypertension (Chronic) Dizziness (Acute) Heart murmur (Acute) Lyme disease (Acute) Elevated LFTs (Acute) Diarrhea (Acute) Irregular bowel habits (Acute) Medical History Cerumen impaction Essential hypertension Hyperlipidemia Incontinence of feces Inguinal hernia, left LVH (left ventricular hypertrophy) Memory impairment Osteopenia Shoulder pain, bilateral Sleep apnea T wave inversion in EKG Unsteady gait Urinary incontinence, mixed Surgical History Cholecystectomy HERNIA REPAIR Family History Mother Alzheimer's disease Father No problems noted. Social History Smoking/Tobacco Use Status: Never Smoking risk assessment performed?: Yes Alcohol Intake: current Alcohol Intake frequency: holidays/special occasions only Drug use: Never Current gender identity: female Do you feel safe at home: Yes Do you feel safe in your relationship?: Yes Exam Narrative Exam Narrative: GENERAL APPEARANCE: Well-nourished, non-toxic, awake and alert, atraumatic, no acute distress. SKIN: Warm, pink, dry, intact, without rashes/lesions/ulcerations. HEAD: Normocephalic, atraumatic, normal hair distribution for gender/age. EYES: Pupils PERRLA, EOMs intact without nystagmus, visual eric intact, vision grossly intact, normal conjunctiva, no exudates on lids/lashes. ENT: Nares patent, no circumoral cyanosis, no facial swelling NECK: Supple, trachea midline, painless cervical ROM. LUNGS/CHEST: Lungs CTA bilaterally- no rhonchi/rales/wheezes diffusely, non- labored respirations, normal A/P diameter, symmetrical expansion, no chest wall deformity HEART (CV/PV): Regular rate- bradycardic and rhythm with blowing systolic murmur, no peripheral edema in abdomen or lower extremities, + JVD. ABDOMEN: Soft, non-distended, no guarding, no tenderness, no Rovsing's, no rebound tenderness. MSK: Normal ROM, no swelling/deformity to bilateral UEs or LEs, moving all extremities without weakness, no cyanosis, spine midline without tenderness, normal curvature. NEURO: Mental Status AAOx3 - alert to person, place, events- baseline Alzheimer's poor historian No facial droop, no forehead involvement, no pronator drift, no dysmetria with cerebellar testing Motor: No focal weakness - strength 5/5 in bilateral UEs and LEs, proximal and distal, symmetric. Sensory: sensation intact to light touch globally. Gait NT. PSYCH: euthymic, cooperative, pleasant, appropriate speech, no slurred speech Course Vital Signs Vital signs: Vital Signs Temperature 36.3 C L 09/05/23 15:08 Pulse 16 L 09/05/23 15:08 Respiratory Rate 14 09/05/23 15:08 Blood Pressure 95/50 L 09/05/23 15:08 Pulse Oximetry 98 09/05/23 15:08 Temperature 36.3 C L 09/05/23 15:08 Temperature Source Oral 09/05/23 15:08 Pulse 16 L 09/05/23 15:08 Respiratory Rate 14 09/05/23 15:16 Respiratory Effort Normal 09/05/23 15:16 Respiratory Depth Normal 09/05/23 15:16 Respiratory Pattern Normal 09/05/23 15:16 Blood Pressure 95/50 L 09/05/23 15:08 Blood Pressure Position Supine 09/05/23 15:08 Pulse Oximetry 98 09/05/23 15:08 Oxygen Delivery Method Room Air 09/05/23 15:08 Oxygen Flow Rate 0 09/05/23 15:08 Pain Level 0 09/05/23 15:08
[2023-09-05] MEDS: Normal Saline 1,000 ML 1000 ML IV (15:33)
[2023-09-05 15:34] LABS: Source Nasal/Nares
[2023-09-05 15:41] LABS: Abs Immature Grans 0.02 10^3/uL (0.0-0.06); Absolute Basophil Count 0.12 10^3/uL (0.0-0.2); Absolute Eosinophil Count 0.11 10^3/uL (0.0-0.7); Absolute Lymphocyte Count 1.97 10^3/uL (1.2-3.4); Absolute Monocyte Count 0.41 10^3/uL (0.1-0.8); Basophils % 1.5; Eosinophils % 1.3; HCT 45.5 % (36.0-46.0); HGB 14.4 g/dL (11.2-15.7); Immature Grans % 0.2; Lymphocytes % 23.9; MCH 27.4 pg (27.0-33.0); MCHC 31.6 % (32.0-36.0); MCV 87 fL (80-95); MPV 12.9 fL (8.0-11.0); Neutrophils % 68.1; Platelet Count 201 10^3/uL (130-400); RBC 5.25 10^6/uL (3.93-5.22); RDW 12.6 % (11.7-14.6); WBC 8.23 10^3/uL (4.4-10.8)
[2023-09-05 15:43] LABS: ESR 4 mm/hr (0-30)
--- NOTE | 2023-09-05 15:43 | DI.RAD_ITS ---
Exam(s) XR CHEST 1V IN DI DEPT EXAM: XR CHEST 1V IN DI DEPT CLINICAL HISTORY: syncope TECHNIQUE: 2D digital imaging was performed of the chest. One image was obtained. An AP view was ob tained. COMPARISON: CR XR CHEST 2V PA LATERAL from 07/14/2019 FINDINGS: MEDIASTINUM: Normal. HEART: Cardiomegaly. PULMONARY VASCULATURE: Normal. LUNGS: Clear. PLEURAL SPACE: No pleural effusion or pneumothorax. BONE:Within normal limits for the patient's age. OTHER FINDINGS:Normal. IMPRESSION: No acute pulmonary findings. DATA REPOSITORY: RADIATION DOSE DELIVERED:
[2023-09-05 15:57] LABS: ALT 23 U/L (14-59); AST 21 U/L (15-37); Albumin 3.5 g/dL (3.4-5.0); Alkaline Phosphatase 89 U/L (46-116); Anion Gap 6.8 mmol/L (3-11); BUN 21 mg/dL (7-18); Bilirubin, Total 0.3 mg/dL (0.2-1.0); CO2 27.2 mmol/L (21.0-32.0); CREATININE 1.1 mg/dL (0.55-1.02); Calcium 8.3 mg/dL (8.5-10.1); Chloride 107 mmol/L (98-107); Estimated GFR 50.48 (mL/min/1.73m2); Glucose 188 mg/dL (74-106); Magnesium 2.3 mg/dL (1.8-2.4); Potassium 3.2 mmol/L (3.5-5.1); Sodium 141 mmol/L (136-145); Total Protein 6.7 g/dL (6.4-8.2)
[2023-09-05 15:59] LABS: Troponin I 412 ng/L (<or=60)
--- NOTE | 2023-09-05 16:00 | DI.CT_ITS ---
Exam(s) CT HEAD WO EXAM: CT HEAD WO CLINICAL HISTORY: vertigo, syncope. TECHNIQUE: Imaging Protocol: Axial computed tomography images with coronal and sagittal reformatted images were created and reviewed COMPARISON: CT CT BRAIN NECK CTA from 03/12/2023 FINDINGS: Ventricles and Extra axial spaces: Normal in size and morphology for the patient's age. Note is again made of a left internal carotid artery aneurysm. Hemorrhage: None. Cerebral parenchyma: There are areas of decreased attenuation in the white matter most consistent wit h small vessel ischemic disease. Midline shift: None. Brainstem/Cerebellum: Normal. Calvarium: Normal. Visualized Paranasal sinuses/Mastoids: Clear. Soft Tissues: Unremarkable. IMPRESSION: 1. No acute intracranial process. 2. Findings were discussed with Mikael Angelo at 4:04 p.m. on 09/05/2023. RADIATION DOSE DELIVERED: Total DLP DATA REPOSITORY: All CT scans at this facility are submitted to the National Radiology Data Registry (NRDR) Dose Index Registry (DIR) with the [employer] (A[employer]). RADIATION OPTIMIZATION: All CT scans at this facility use at least one of these dose optimization te chniques: automated exposure control; mA and/or kV adjustment per patient size (includes targeted exa ms where dose is matched to clinical indication); or iterative reconstruction.
[2023-09-05 16:03] LABS: C-Reactive Protein 0.14 mg/dL (0.0-0.3); Lipase 19 U/L (16-77); NT-proBNP 7903 pg/mL (<300); TSH (W/Ref FT4) 9.07 uIU/mL (0.36-3.74)
[2023-09-05 16:07] LABS: D-Dimer 831 ng/mlFEU (<500)
[2023-09-05 16:09] LABS: COVID-19 PCR Negative (Negative)
--- NOTE | 2023-09-05 16:15 | RT.EKG_ITS ---
APPROVED REPORT Exam: Resting ECG Reason for Exam: Dizzy Patient Location: E HR:53 bpm ECG Measurements Heart Rate 53 AXIS [place] [id number] P [id number] QRSd 124 QRS -18 QT 609 T -85 QTc 571 Conclusion Atrial fibrillation...? atrial activity Left bundle branch block...QRSd>120, broad/notched R Anteroseptal infarct, acute...ST >0.20mV, V1-V2 Prolonged QT interval...QTc >500mS sinus rhtyhm, left axis, LBBB with expected repol, negative by modified sgarbossa
[2023-09-05 16:21] LABS: FREE T4 0.98 ng/dL (0.76-1.46)
[2023-09-05 16:25] LABS: Ammonia < 10 umol/L (11-32)
[2023-09-05] MEDS: Aspirin 81 MG CHEW 324 MG CH (16:34)
[2023-09-05 18:10] LABS: Bilirubin Negative (Negative); Blood Negative (Negative); Clarity Clear (Clear); Glucose Negative (Negative); Ketones Negative (Negative); Leukocyte Esterase Moderate (Negative); Nitrite Negative (Negative); Specific Gravity 1.015 (1.005-1.025); Urobilinogen 0.2 mg/dL (Up to 0.2); pH 5.5 (5-8)
[2023-09-05 18:16] LABS: Bacteria Few HPF (Negative); Casts 3-5 Hyaline LPF (Negative); Crystals Negative HPF (Negative); Epithelial Cells Few HPF (Negative); Mucus Trace (Negative); RBC 0-2 HPF (0-2)
[2023-09-05 18:17] LABS: C & S Indicated? Yes; Other Cells Rare Renal (Negative)
[2023-09-05 19:06] LABS: Troponin I 401 ng/L (<or=60)
[2023-09-08 11:48] LABS: Lyme Ab w Rflx to Lyme Confirm Negative (Negative)
[2023-09-09 13:56] LABS: Anaplasma phagocytophilum Negative (Negative); B. miyamotoi PCR Negative (Negative); Babesia divergens/MO-1 Negative (Negative); Babesia duncani Negative (Negative); Babesia microti Negative (Negative); Ehrlichia chaffeensis Negative (Negative); Ehrlichia ewingii/canis Negative (Negative); Ehrlichia muris eauclairensis Negative (Negative)
== END 2023-09-05 23:27 | disposition short-term general hospital (02) ==
PROVIDERS: Emergency Provider Physician Assistant; PCP Nurse Practitioner Family
DX: I24.9 Acute ischemic heart disease, unspecified (principal); I48.91 Unspecified atrial fibrillation; I44.7 Left bundle-branch block, unspecified; I51.7 Cardiomegaly; I10 Essential (primary) hypertension; E78.5 Hyperlipidemia, unspecified; Z79.899 Other long term (current) drug therapy; Z20.822 Contact with and (suspected) exposure to COVID-19
CPT/HCPCS: 36415; 80053; 83690; 85652; 87635; 87798; 93005; 96360; 99285; 70450; 71045; 81003; 81015; 82140; 83605; 83735; 83880; 84439; 84443; 84484; 85025; 85379; 86140; 86618; 87086; 93010

== ENCOUNTER 2023-09-15 08:31 | Outpatient (CLI) | payer MEDICARE, SELFPAY ==
--- NOTE | 2023-09-15 08:30 | RT.EKG_ITS ---
APPROVED REPORT Exam: Resting ECG Reason for Exam: CAD Patient Location: O HR:58 bpm ECG Measurements Heart Rate 58 AXIS IN 142 P 27 QRSd 164 QRS -34 QT 499 T 140 QTc 491 Conclusion Sinus rhythm...normal P axis, V-rate 50- 99 Left bundle branch block...QRSd>120, broad/notched R
== END 2023-09-15 08:32 | disposition home or self-care (01) ==
LOC: DI.CARD 08:33
PROVIDERS: PCP Nurse Practitioner Family; Visit Provider Internal Medicine Cardiovascular Disease
DX: I24.9 Acute ischemic heart disease, unspecified; R55 Syncope and collapse
CPT/HCPCS: 93010

== ENCOUNTER → 2023-09-15 11:18 | Outpatient (BNVA) | payer MEDICARE, SELFPAY | PROVIDERS: PCP Nurse Practitioner Family; Referring Provider Nurse Practitioner Family; Visit Provider Internal Medicine Cardiovascular Disease | DX: I25.2 Old myocardial infarction (principal); I35.0 Nonrheumatic aortic (valve) stenosis; R55 Syncope and collapse | CPT/HCPCS: 93005; 99214 ==

== ENCOUNTER → 2023-12-11 04:26 | Outpatient (CLI) | payer MEDICARE, SELFPAY ==
--- NOTE | 2023-12-11 09:54 | DI.RAD_ITS ---
Exam(s) XR FOOT RT COMPLETE EXAM: XR FOOT RT COMPLETE CLINICAL HISTORY: Right foot pain,[id number]. TECHNIQUE: 2D digital imaging was performed of the right foot. Three images were obtained. AP, obl ique and lateral views were obtained. COMPARISON: No exams were available for comparison FINDINGS: BONES: No acute fracture is present. No bony destructive lesion is seen. JOINTS: There is a lateral dislocation of the PIP joint of the 5th toe. There also is a medial sublu xation of the 2nd MTP joint. There is overlapping of the 1st and 2nd toes. Hammertoe of the 2nd toe is noted. There are degenerative changes in the right foot. The findings are marked at the 1st MTP joint where there is loss of the joint space and osteophytes present. There is flattening of the ar ticular surface is present. There is a large spur at the dorsal aspect of the head of the 1st metata rsal bone. SOFT TISSUE: Normal. IMPRESSION: 1. Marked degenerative changes at the 1st MTP joint with a large spur at the dorsal aspect of the hea d of the 1st metatarsal bone. 2. Subluxations involving the PIP joint of the 5th toe in the 2nd MTP joint as described above. Ther e is overlapping of the 1st and 2nd toes. DATA REPOSITORY: RADIATION DOSE DELIVERED:
== END ==
PROVIDERS: PCP Nurse Practitioner Family; Visit Provider Podiatrist
DX: M19.071 Primary osteoarthritis, right ankle and foot (principal); L60.3 Nail dystrophy; B35.1 Tinea unguium; L84 Corns and callosities; G30.9 Alzheimer's disease, unspecified; F02.80 Dementia in other diseases classified elsewhere, unspecified severity, without behavioral disturbance, psychotic disturbance, mood disturbance, and anxiety; M20.21 Hallux rigidus, right foot; M20.41 Other hammer toe(s) (acquired), right foot
CPT/HCPCS: 11055; 11721; 73630

== ENCOUNTER 2024-01-13 13:57 | Outpatient (REF) | payer MEDICARE, SELFPAY ==
[2024-01-13 15:23] LABS: ALT 34 U/L (14-59); AST 24 U/L (15-37); Albumin 3.6 g/dL (3.4-5.0); Alkaline Phosphatase 135 U/L (46-116); Anion Gap 12.1 mmol/L (3-11); BUN 18 mg/dL (7-18); Bilirubin, Total 0.7 mg/dL (0.2-1.0); CO2 25.9 mmol/L (21.0-32.0); CREATININE 0.8 mg/dL (0.55-1.02); Calcium 8.9 mg/dL (8.5-10.1); Calculated LDL 76 mg/dL (<100); Chloride 108 mmol/L (98-107); Cholesterol 162 mg/dL (<200); Estimated GFR 73.98 (mL/min/1.73m2); Glucose 112 mg/dL (74-106); HDL Cholesterol 69 mg/dL (40-60); Potassium 4.1 mmol/L (3.5-5.1); Sodium 146 mmol/L (136-145); TSH (W/Ref FT4) 2.36 uIU/mL (0.36-3.74); Total Protein 6.7 g/dL (6.4-8.2); Triglyceride 85 mg/dL (<150)
[2024-01-13 15:24] LABS: Vitamin D 25 Total 26.2 ng/mL (30-100)
== END 2024-01-13 13:58 | disposition home or self-care (01) ==
LOC: NCHCN 13:57
PROVIDERS: PCP Nurse Practitioner Family; Referring Provider Nurse Practitioner Family; Visit Provider Nurse Practitioner Family
DX: E03.9 Hypothyroidism, unspecified (principal); I42.9 Cardiomyopathy, unspecified; R79.89 Other specified abnormal findings of blood chemistry; M85.88 Other specified disorders of bone density and structure, other site
CPT/HCPCS: 80053; 80061; 82306; 84443

== ENCOUNTER 2024-08-08 12:41 | Emergency (ER) | payer MEDICARE, SELFPAY ==
[2024-08-08] VITALS (31 sets, daily range): BP systolic 137–168; BP diastolic 62–84; PULSE 46–61; RESP 6–18; TEMP 36.2–36.5; O2SAT 85–99
--- NOTE | 2024-08-08 12:45 | RT.EKG_ITS ---
APPROVED REPORT Exam: Resting ECG Reason for Exam: dizziness, hjeadache Patient Location: E HR:57 bpm ECG Measurements Heart Rate 57 AXIS [place] 150 P 85 QRSd 179 QRS -37 QT 554 T 140 QTc 540 Conclusion Sinus bradycardia 57 LBBB no stemi
--- NOTE | 2024-08-08 12:45 | DI.CT_ITS ---
Exam(s) CT BRAIN NECK CTA EXAM: CT BRAIN NECK CTA CLINICAL HISTORY: headache. TECHNIQUE: Imaging Protocol: Axial CT angiography was performed with multi-slice acquisition and mu lti-planar and/or 3D reconstructions. CONTRAST MATERIAL: Intravenous: Omnipaque 350 Contrast volume:structured data in ml COMPARISON: CT CT BRAIN NECK CTA from 03/12/[address] HEAD WO from 09/05/2023 FINDINGS: CTA Neck W: Aortic arch anatomy: The aortic arch anatomy is conventional and there is no significant stenosis at the origin of the great vessels off of the aortic arch. No intimal flap evident. Anterior circulation: Both common carotid arteries ascend with normal luminal diameters. At the level of the right carotid bulb and proximal right ICA there is some calcified plaque noted on the posterior wall. Approximately 10-20 percent stenosis. Above this level the right ICA in the up per neck is patent, albeit mildly tortuous before entering the skull base. On the left side there is also some calcified plaque on the posterior wall of the carotid bifurcation and proximal left ICA. Estimated approximately 40 percent stenosis. Above this level the left ICA is patent in the upper neck and skull base. Posterior circulation: Both vertebral arteries originate in conventional fashion off of the subclavian arteries and there is no obvious stenosis at the origin of the vertebral arteries. Proximal aspect of both vertebral tigist megan is tortuous prior to entering the foramen transverse area but there is no evidence of intralumin al thrombus, narrowing, nor dissection. Both vertebral arteries exhibit normal and approximately equal luminal diameters within the foramen t ransversarium. Both vertebral arteries contribute to the formation of the basilar artery at the skull base. CTA Brain W: Anterior circulation: Both internal carotid arteries are patent in the skull base-carotid canals as well as within the cave rnous sinuses. On the left side there is an aneurysm arising from the lateral aspect of the cavernous aspect the lef t ICA and measuring approximately 1.9 by 1.0 by 1.2 cm, relatively similar to previous. No internal thrombosis. The supraclinoid aspects of both ICAs are patent. Both A1 segments as are the anterior cerebral arteries. Aneurysm at the level the anterior communicating artery. Both middle cerebral arteries are patent with no evidence of significant stenosis nor intraluminal th rombus. There also no aneurysms of these vessels. Posterior circulation: The basilar artery ascends with no significant stenosis. Distally it gives off superior cerebellar a rteries. Above this level it terminates as the patent left posterior cerebral artery. The right pos terior cerebral artery is fed by a posterior communicating artery on the right side of the [place]. CT BRAIN: There is no evidence of intracranial hemorrhage, mass effect, or shift of midline structures. There are no extra-axial fluid collections. Ventricles are not enlarged or shifted. There are no ring enh ancing lesions in the brain and no abnormal meningeal enhancement. There is abundant bilateral periventricular hypodensity consistent with chronic small vessel disease. No ring enhancing lesions. IMPRESSION: 1. There is plaque bilaterally at the carotid bulbs and proximal ICAs with approximately 10-20 percen t stenosis on the right side at this level and approximately 40 percent stenosis on the left side. 2. Patent vertebral arteries. 3. Patent intracranial arteries. 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 4. RADIATION DOSE DELIVERED: 2,186.51mGy.cm Total DLP DATA REPOSITORY: All CT scans at this facility are submitted to the National Radiology Data Registry (NRDR) Dose Index Registry (DIR) with the [employer] (ACR). RADIATION OPTIMIZATION: All CT scans at this facility use at least one of these dose optimization te chniques: automated exposure control; mA and/or kV adjustment per patient size (includes targeted exa ms where dose is matched to clinical indication); or iterative reconstruction.
[2024-08-08 13:23] LABS: Abs Immature Grans 0.02 10^3/uL (0.0-0.06); Absolute Basophil Count 0.08 10^3/uL (0.0-0.2); Absolute Eosinophil Count 0.03 10^3/uL (0.0-0.7); Absolute Lymphocyte Count 1.34 10^3/uL (1.2-3.4); Absolute Monocyte Count 0.36 10^3/uL (0.1-0.8); Eosinophils % 0.4 %; HCT 43.4 % (36.0-46.0); Immature Grans % 0.2 %; Lymphocytes % 16.1 %; MCH 27.6 pg (27.0-33.0); MCHC 32.3 % (32.0-36.0); MCV 86 fL (80-95); Monocytes % 4.3 %; Platelet Count 189 10^3/uL (130-400); RBC 5.07 10^6/uL (3.93-5.22); RDW 13.5 % (11.7-14.6); RDW-SD 42.5 fL; WBC 8.33 10^3/uL (4.4-10.8)
[2024-08-08 13:32] LABS: ALT 22 U/L (14-59); AST 19 U/L (15-37); Albumin 3.3 g/dL (3.4-5.0); Alkaline Phosphatase 135 U/L (46-116); Anion Gap 9.8 mmol/L (3-11); BUN 25 mg/dL (7-18); Bilirubin, Total 0.56 mg/dL (0.2-1.0); CO2 29.2 mmol/L (21.0-32.0); CREATININE 0.9 mg/dL (0.55-1.02); Calcium 9.2 mg/dL (8.5-10.1); Chloride 107 mmol/L (98-107); Estimated GFR 63.83 (mL/min/1.73m2); Glucose 110 mg/dL (74-106); Magnesium 2.2 mg/dL (1.8-2.4); Potassium 3.4 mmol/L (3.5-5.1); Sodium 146 mmol/L (136-145)
[2024-08-08 13:42] LABS: TSH (W/Ref FT4) 1.62 uIU/mL (0.36-3.74)
[2024-08-08 13:43] LABS: ETHANOL BLOOD < 3.0 mg/dL (<10)
[2024-08-08] MEDS: Normal Saline - Diluent 50 ML VIAL IJ (14:13)
[2024-08-08 14:14] LABS: Bilirubin Negative (Negative); Blood Negative (Negative); Clarity Sl Cloudy (Clear); Glucose Negative (Negative); Ketones 15 mg/dL (Negative); Leukocyte Esterase Trace (Negative); Nitrite Negative (Negative); Specific Gravity 1.025 (1.005-1.025); Urobilinogen 0.2 mg/dL (Up to 0.2)
[2024-08-08] MEDS: Omnipaque 350 MG/ML 100 ML BTL 70 ML IJ (14:14)
[2024-08-08 14:23] LABS: Bacteria Rare HPF (Negative); C & S Indicated? No; Casts Negative LPF (Negative); Crystals Few Amorphous HPF (Negative); Epithelial Cells Few HPF (Negative); Mucus Moderate (Negative); RBC 0-2 HPF (0-2)
[2024-08-08 14:25] LABS: *AMPHETAMINES SCREEN URINE Negative (Negative); *BARBITURATES SCREEN URINE Negative (Negative); *BENZODIAZEPINES SCREEN URINE Negative (Negative); Cannabinoids THC Negative (Negative); Cocaine Screen,Urine Negative (Negative); METHADONE URINE SCREEN Negative (Negative); OPIATES URINE SCREEN Negative (Negative)
[2024-08-08 14:28] LABS: Tricyclic Antidepressants Negative (Negative)
[2024-08-08] MEDS: Acetaminophen 500 MG TAB 1000 MG PO (14:40)
[2024-08-08] MEDS: Metoclopramide 10 MG TAB PO (14:51)
--- NOTE | 2024-08-08 15:25 | ED.GENADUL_ITS ---
Discharge Plan Disposition Patient Disposition: Home Condition: Stable Discharge Details Clinical Impression: Headache, Alzheimer's dementia without behavioral disturbance Primary Care Provider: Marbella Serrato ED Provider: Emile Richardson Home Meds and New Rx's Prescriptions: No Action benazepril 40 mg tablet 20 mg PO DAILY atorvastatin 40 mg tablet 40 mg PO DAILY aspirin [Adult Aspirin Regimen] 81 mg tablet,delayed release (DR/EC) 81 mg PO DAILY nitroglycerin 0.4 mg tablet, sublingual 0.4 mg sublingual Q5M PRN Rx Instructions: do not exceed 3 doses per episode meclizine 12.5 mg Tablet 12.5 mg PO TID PRN PRNQty: 30 0RF ibuprofen 200 mg Tablet 400 mg PO Q6H PRN Patient Comments: does not take very often Discharge Instructions Additional Instructions: * try over the counter medications for headache like tylneol or excerdrine migraine * try to increase water intake * case management will follow up with you regarding home care issues * return with severe pain, persistent vomiting HPI General Date/Time Provider Initiated Documentation: 08/08/24 12:49 . Limitations to Documentation: altered mental status (dementia) . Information obtained by: family (daughter) and EMS . HPI Narrative: 84y F with PMH including dementia, prior STEMI, presents for evaluation of headache and vomiting. History is significantly limited and no caregivers are present at this time. On my eval patient denies headache. To EMS she did report headache and episode of vomiting. She was given Zofran by IV. Related Data Home Medications ?Medication ?Instructions ?Recorded ?Confirmed ibuprofen 200 mg tablet 400 mg PO Q6H PRN 05/09/20 08/08/24 meclizine 12.5 mg tablet 12.5 mg PO TID PRN PRN #30 tabs 03/13/23 08/08/24 aspirin 81 mg tablet,delayed 81 mg PO DAILY 09/10/23 08/08/24 release (Adult Aspirin Regimen) atorvastatin 40 mg tablet 40 mg PO DAILY 09/10/23 08/08/24 benazepril 40 mg tablet 20 mg PO DAILY 09/10/23 08/08/24 nitroglycerin 0.4 mg sublingual 0.4 mg sublingual Q5M PRN 09/10/23 08/08/24 tablet Previous Rx's ?Medication ?Instructions ?Recorded meclizine 12.5 mg tablet 12.5 mg PO TID PRN PRN #30 tabs 03/13/23 Allergies Allergy/AdvReac Type Severity Reaction Status Date / Time latex Allergy Mild rash Verified 08/08/24 13:06 propoxyphene HCl (From AdvReac Severe profound Verified 08/08/24 13:06 Darvon Compound-65) hypotension antibiotic ointments AdvReac Mild rash Uncoded 08/08/24 13:06 General Stated Complaint: Headache DAVID: 3 Exam Narrative Exam Narrative: Review of Systems: All systems reviewed & are unremarkable except as noted in HPI and below Well-developed, no acute distress NCAT PERRL, normal conjunctiva Bradycardic Unlabored respiratory effort clear bilaterally Nondistended abdomen soft nt Extremities w/o deformity, no cyanosis, no edema No rashes or lesions. Patient is able to tell me her name and her location. Course Vital Signs Vital signs: Vital Signs Respiratory Rate 15 08/08/24 12:46 Temperature 36.2 C L 08/08/24 15:14 Temperature Source Temporal Artery Scan 08/08/24 15:14 Pulse 53 L 08/08/24 15:14 Pulse 48 L 08/08/24 13:50 Respiratory Rate 14 08/08/24 15:14 Respiratory Effort Normal, Non-Labored 08/08/24 12:55 Blood Pressure 156/84 H 08/08/24 13:31 Blood Pressure Mean 106 08/08/24 13:31 Pulse Oximetry 99 08/08/24 15:14 Oxygen Delivery Method Nasal Cannula 08/08/24 15:14 Oxygen Flow Rate 2 08/08/24 15:14 Pain Level 6 08/08/24 14:40 Lab/Test Results Lab/Test Results: Laboratory Tests Range/Units 08/08/24 08/08/24 13:08 14:07 WBC (4.4-10.8) 10^3/uL 8.33 RBC (3.93-5.22) 10^6/uL 5.07 Hgb (11.2-15.7) g/dL 14.0 Hct (36.0-46.0) % 43.4 MCV (80-95) fL 86 MCH (27.0-33.0) pg 27.6 MCHC (32.0-36.0) % 32.3 RDW (11.7-14.6) % 13.5 Plt Count (130-400) 10^3/uL 189 MPV (8.0-11.0) fL Immature Gran % % 0.2 Neutrophils % % 78.0 Lymphocytes % % 16.1 Monocytes % % 4.3 Eosinophils % % 0.4 Basophils % % 1.0 Nucleated RBC % (0.0-0.3) % 0.0 Absolute Neutrophils (1.2-6.7) 10^3/uL 6.50 Absolute Lymphocytes (1.2-3.4) 10^3/uL 1.34 Absolute Monocytes (0.1-0.8) 10^3/uL 0.36 Absolute Eosinophils (0.0-0.7) 10^3/uL 0.03 Absolute Basophils (0.0-0.2) 10^3/uL 0.08 Sodium (136-145) mmol/L 146 H Potassium (3.5-5.1) mmol/L 3.4 L Chloride (98-107) mmol/L 107 Carbon Dioxide (21.0-32.0) mmol/L 29.2 Anion Gap (3-11) mmol/L 9.8 BUN (7-18) mg/dL 25 H Creatinine (0.55-1.02) mg/dL 0.9 Est GFR (CKD-EPI 2020) (mL/min/1.73m2) 63.83 Glucose (74-106) mg/dL 110 H Calcium (8.5-10.1) mg/dL 9.2 Magnesium (1.8-2.4) mg/dL 2.2 Total Bilirubin (0.2-1.0) mg/dL 0.56 AST (15-37) U/L 19 ALT (14-59) U/L 22 Alkaline Phosphatase (46-116) U/L 135 H Total Protein (6.4-8.2) g/dL 7.0 Albumin (3.4-5.0) g/dL 3.3 L TSH (0.36-3.74) uIU/mL 1.62 Urine Color (Yellow) Yellow Urine Clarity (Clear) Sl Cloudy Urine pH (5-8) 7.0 Ur Specific [place] (1.005-1.025) 1.025 Urine Protein (Neg-Trace) mg/dL Negative Urine Ketones (Negative) mg/dL 15 H Urine Blood (Negative) Negative Urine Nitrite (Negative) Negative Urine Bilirubin (Negative) Negative Urine Urobilinogen (Up to 0.2) mg/dL 0.2 Ur Leukocyte Esterase (Negative) Trace H Urine RBC (0-2) HPF 0-2 Urine WBC (0-5) HPF 3-5 Ur Epithelial Cells (Negative) HPF Few Urine Crystals (Negative) HPF Few Amorphous Urine Bacteria (Negative) HPF Rare Urine Casts (Negative) LPF Negative Urine Mucus (Negative) Moderate Ur Culture Indicated? No Urine Glucose (Negative) mg/dL Negative Urine Opiates Screen (Negative) Negative Urine Methadone Screen (Negative) Negative Ur Barbiturates Screen (Negative) Negative Ur Tricyclics Screen (Negative) Negative Ur Amphetamines Screen (Negative) Negative U Benzodiazepines Scrn (Negative) Negative Urine Cocaine Screen (Negative) Negative Ur THC Screen (Negative) Negative Ethyl Alcohol (<10) mg/dL < 3.0 Medical Decision Making Emergent evaluation of headache. Patient has significant dementia. She is unable to tell me more regarding her headache. other than her cognitive function, there are no focal neuro deficits. EKG does not reveal acute ischemic changes. Sinus bradycardia 57 left bundle branch block no significant change from prior. Daughter did arrive and provide additional 3. The patient does live alone, but they are trying to make other arrangements for that. She does report that a few days ago they noted that she left her house to take the dog on a walk and she did not return home. They found her just on the road on the side of the road. The patient reported to them at the time that she had walked in the field but could not make it back of the bank of the ditch and so she just sat there. There were no signs of trauma or other concerns and she was not evaluated at that time. No feel that there is anything from that event that relates to her presentation today. Lab work was obtained. No leukocytosis or anemia. She does show some mild signs of dehydration with a sodium of 146 and a slightly elevated BUN of 25. Otherwise no clinically significant abnormalities. Urinalysis obtained and there is no signs of infection there. Drug screen and alcohol screen are negative. Daughter does report that the patient is at her cognitive baseline at this time. A CTA of her head and neck was obtained given her history of aneurysm and presentation of headache. The V rad radiology report was reviewed: Stable left supraclinoid ICA 1 cm saccular aneurysm. No large vessel occlusion. Updated family on findings. The patient appears very comfortable but occasionally states that she has a headache. Based on her negative workup, there is no other indication for emergent treatment or hospitalization. I will place an order for care management referral to help the daughter's with home caregiving needs. Daughter reports that they are trying to get someone to live with her from a company called [facility]. She said it sounds like she does need full-time care. The daughter Marta will stay with her tonight tomorrow. Return precautions advised. Recommend close follow-up with PCP. Quality:SDOH Health Related Social Needs: No Data to Display PFSH All Active Problems (Updated 08/08/24 @ 16:02 by Emile Richardson MD) Headache (Acute) Corns and callosities (Acute) Onychomycosis (Acute) Pain in right foot (Acute) Hallux rigidus of right foot (Acute) Hammertoe of right foot (Acute) Aortic stenosis (Chronic) Cerebral aneurysm (Acute) Skin lesion (Acute) Internal carotid aneurysm (Chronic) Elevated troponin level not due to acute coronary syndrome (Acute) Dehydration (Acute) Nail dystrophy (Acute) Vascular dementia (Acute) Alzheimer's dementia without behavioral disturbance (Chronic) Hypertrophy of nail (Acute) Cognitive changes (Acute) Vertigo (Acute) Incarcerated left inguinal hernia (Acute) Basal cell carcinoma (Chronic) Abnormal weight loss (Acute) History of adverse reaction to anesthesia (Acute) Hypertension (Chronic) Dizziness (Acute) Heart murmur (Acute) Lyme disease (Acute) Elevated LFTs (Acute) Diarrhea (Acute) Irregular bowel habits (Acute) Medical History Non-STEMI (non-ST elevated myocardial infarction) 09/06/23 RH Pre-syncope Unsteady gait LVH (left ventricular hypertrophy) cardiomyopathy [facility] 09/09/23 RH Cerumen impaction Hyperlipidemia Urinary incontinence, mixed Incontinence of feces Shoulder pain, bilateral Memory impairment Inguinal hernia, left T wave inversion in EKG Osteopenia Sleep apnea Essential hypertension Surgical History HERNIA REPAIR Cholecystectomy Family History Mother Alzheimer's disease Father No problems noted. Social History Smoking/Tobacco Use Status: Never Smoking risk assessment performed?: Yes Alcohol Intake: current Alcohol Intake frequency: holidays/special occasions only Drug use: Never Current gender identity: female Do you feel safe at home: Yes Do you feel safe in your relationship?: Yes
--- NOTE | 2024-08-08 15:35 | DI.VRAD_ITS ---
PROCEDURE INFORMATION: Exam: CTA Head Without And With Contrast, Arteriography Exam date and time: 08/08/2024 2:05 PM Age: 84 years old Clinical indication: Pain; Headache TECHNIQUE: Imaging protocol: Computed tomographic angiography of the head without and with contrast. Exam focused on the arteries. 3D rendering (Not supervised by radiologist): MIP and/or 3D reconstructed images were created by the technologist. Contrast material: OMNIPAQUE 350; Contrast volume: 70 ml; Contrast route: INTRAVENOUS (IV); COMPARISON: MR ANGIO BRAIN WO 03/12/2023 4:02 PM FINDINGS: ANTERIOR CIRCULATION: Right internal carotid artery: Calcified atheroma of the right cavernous ICA with less than 50% stenosis. Right middle cerebral artery: No occlusion or significant stenosis. No aneurysm. Right anterior cerebral artery: No occlusion or significant stenosis. No aneurysm. Left internal carotid artery: There is a 1 x 9 mm saccular aneurysm arising from supraclinoid segment of the left ICA, stable when compared to prior study. Calcified atheroma of the left cavernous ICA but no significant stenosis. Left middle cerebral artery: No occlusion or significant stenosis. No aneurysm. Left anterior cerebral artery: No occlusion or significant stenosis. No aneurysm. POSTERIOR CIRCULATION: Right vertebral artery: No occlusion or significant stenosis. No aneurysm. Left vertebral artery: Calcified atheroma in the V4 segment of the left vertebral artery but no significant stenosis. Basilar artery: No occlusion or significant stenosis. No aneurysm. Right posterior cerebral artery: origin of the right [employer]. Left posterior cerebral artery: No occlusion or significant stenosis. No aneurysm. HEAD: Brain: Normal. No hemorrhage. Unremarkable white matter. No mass effect. Cerebral ventricles: Normal. No ventriculomegaly. Bones: Unremarkable. No acute fracture. Paranasal sinuses: Visualized sinuses are normal. No fluid levels. Mastoid air cells: Visualized mastoids are normal. No mastoid effusion. Soft tissues: Unremarkable. IMPRESSION: Stable left supraclinoid ICA 1 cm saccular aneurysm. No large vessel occlusion. PROCEDURE INFORMATION: Exam: CTA Neck Without And With Contrast Exam date and time: 08/08/2024 2:05 PM Age: 84 years old Clinical indication: Pain; Headache TECHNIQUE: Imaging protocol: Computed tomographic angiography of the neck without and with contrast. Exam focused on the cervical segments of the vasculature. 3D rendering (Not supervised by radiologist): MIP and/or 3D reconstructed images were created by the technologist. Contrast material: OMNIPAQUE 350; Contrast volume: 70 ml; Contrast route: INTRAVENOUS (IV); COMPARISON: CT BRAIN NECK CTA 03/12/2023 10:56 AM FINDINGS: Right common carotid artery: Calcified atheroma of the right common carotid artery no significant stenosis. Right internal carotid artery: Calcified atheroma of the right proximal ICA with less than 50% stenosis. Right external carotid artery: No occlusion or stenosis of the origin. Left common carotid artery: No stenosis. No dissection or occlusion. Left internal carotid artery: Calcified atheroma of the left proximal ICA with less than 50% stenosis. Left external carotid artery: No occlusion or stenosis of the origin. Right vertebral artery: No stenosis. No dissection or occlusion. Left vertebral artery: No stenosis. No dissection or occlusion. Thyroid: Hypodense bilateral thyroid nodules measuring up to 8 mm in the left thyroid lobe. Soft tissues: Normal. No significant soft tissue swelling. Bones/joints: Mild multilevel degenerative of the cervical spine with posterior osteophyte disc complex at C6-C7 causing mild bony canal stenosis and mild narrowing of both neural foramina. CPPD changes around the dens. Moderate degenerative at the anterior C1-C2 articulation. IMPRESSION: Mild stenosis of bilateral proximal ICAs. REFERENCES: NASCET CRITERIA. The degree of stenosis in the cervical segment of the internal carotid artery is based on NASCET criteria. Normal is no stenosis. Mild is less than 50% stenosis. Moderate is 50-69% stenosis. Severe is 70% to 99% stenosis. Total occlusion is no detectable patent lumen. Dictated and Authenticated by: Hayder Alexandre MD. Ordering:EDDIE Du MD
== END 2024-08-08 16:17 | disposition home or self-care (01) ==
PROVIDERS: Emergency Provider Emergency Medicine; PCP Nurse Practitioner Family
DX: R51.9 Headache, unspecified (principal); G30.9 Alzheimer's disease, unspecified; R42 Dizziness and giddiness; R11.10 Vomiting, unspecified; I10 Essential (primary) hypertension
CPT/HCPCS: 36415; 70496; 70498; 80053; 80307; 93005; 99285; 80320; 81003; 81015; 83735; 84443; 85025; 93010; 99284; J3490

== ENCOUNTER → 2024-12-29 10:15 | Outpatient (BNVA) | payer MEDICARE, SELFPAY | PROVIDERS: PCP Nurse Practitioner Family; Referring Provider Nurse Practitioner Family; Visit Provider Podiatrist | DX: M79.675 Pain in left toe(s) (principal); M79.674 Pain in right toe(s); L60.3 Nail dystrophy; B35.1 Tinea unguium; M20.21 Hallux rigidus, right foot; M20.41 Other hammer toe(s) (acquired), right foot; G30.9 Alzheimer's disease, unspecified; F02.80 Dementia in other diseases classified elsewhere, unspecified severity, without behavioral disturbance, psychotic disturbance, mood disturbance, and anxiety; L84 Corns and callosities | CPT/HCPCS: 99213 ==